=== PATIENT | male | born 1980 | race Caucasian/White ===

== ENCOUNTER 2021-01-17 23:43 | Emergency (ER) | payer BC, SELFPAY ==
[2021-01-17 23:55] VITALS: BP 140/93; PULSE 81; RESP 20; TEMP 36.6; O2SAT 97
[2021-01-18 00:07] VITALS: BP 133/96; PULSE 79; RESP 16; O2SAT 98
--- NOTE | 2021-01-18 01:05 | PC.NURSE ---
rhino rocket in place
--- NOTE | 2021-01-18 01:16 | ED.EPISTAXIS ---
HPI - Epistaxis General Chief complaint: Epistaxis Stated complaint: nosebleed hx of cauterization takes blood thinner Time Seen by Provider: 01/18/21 00:09 Source: RN notes reviewed History of Present Illness HPI Narrative: Patient presents emergency department from home for epistaxis. Patient states he has been having bleeding out of his left nare for the past 40 minutes states this is his third nosebleed today patient states that he is currently on Xarelto for history of congenital heart disease he denies any direct trauma or injury to the nose he denies any shortness of breath or any other symptoms Related Data Home Medications Medication Instructions Recorded Confirmed Xarelto 01/17/21 Allergies Allergy/AdvReac Type Severity Reaction Status Date / Time No Known Allergies Allergy Verified 01/18/21 00:16 Review of Systems Review of Systems: Gen.: Denies fevers or chills Eyes: Denies eye pain or visual change ENT: See HPI Respiratory: Denies shortness of breath or cough CV: Denies chest pain GI: Denies abdominal pain or emesis. Reports mild nausea Musculoskeletal: Denies back pain or muscle pain Neuro: Denies headache Skin: Denies rash Except as documented, all other systems reviewed and negative [facility] Past Medical History Medical History (Updated 01/18/21 @ 01:40 CDT by Kg Solis DO) Congenital heart disease Social History Social History (Updated 01/18/21 @ 01:17 CDT by Kg Solis DO) Smoking status: Never smoker Exam Narrative: APPEARANCE: No acute distress, nontoxic, resting in bed EYES: EOMI HEENT: Normocephalic, atraumatic, right nares normal appearance active bleeding on the left nare mild blood in posterior pharynx RESPIRATORY: No respiratory distress MUSCULOSKELETAl: Moves all extremities. NEURO: Awake and alert. Following commands, speech normal, no focal deficits SKIN:: Warm, dry. No rashes lesions or abrasions PSYCHIATRIC: Normal affect/mood, Course Course Emergency Course: Patient with no further bleeding with rapid Rhino placement Discussed with patient results of workup and diagnosis. Discussed need for follow-up with primary care, proper use of medication, and reasons to return to the emergency department. Patient understands and agrees to current treatment plan Vital Signs Vital signs: Vital Signs Temperature 97.8 F 01/17/21 23:55 Pulse Rate 81 01/17/21 23:55 Respiratory Rate 20 01/17/21 23:55 Blood Pressure 140/93 H 01/17/21 23:55 Pulse Oximetry 97 01/17/21 23:55 Temperature 97.8 F 01/17/21 23:55 Pulse Rate 79 01/18/21 00:07 Respiratory Rate 16 01/18/21 00:07 Blood Pressure 133/96 H 01/18/21 00:07 Pulse Oximetry 98 01/18/21 00:07 Procedures Epistaxis Control left: Nose Prepped With: phenylephrine Direct Inspection: yes Clots Removed by: blowing nose Cautery Used: none Device Inserted: nasal tampon Patient Tolerated Procedure: well Discharge Plan Discharge Instructions: Antibiotic Form, Nosebleed (ED) Additional Instructions: Return for further nose bleeding or any other symptoms of concern Prescriptions: New cephalexin 500 mg capsule 500 mg PO Q8H 7 Days Qty: 21 RF: 0 No Action Xarelto RF: 0 Follow-up/Referrals: Patrick Leach MD [Physician] - (Follow-up in 2 to 3 days for further ENT treatment and evaluation) PHYSICIAN,FOOD PHOTOGRAPHER [Primary Care Provider] - Time of Disposition: 01:41
[2021-01-18] MEDS: CEPHALEXIN 500 MG CAPSULE PO (01:55)
[2021-01-18 01:59] VITALS: BP 109/83; PULSE 86; RESP 16; O2SAT 97
== END 2021-01-18 01:00 | disposition home or self-care (01) ==
PROVIDERS: Emergency Provider Emergency Medicine
DX: R04.0 Epistaxis (principal); Q24.9 Congenital malformation of heart, unspecified; Z79.01 Long term (current) use of anticoagulants
CPT/HCPCS: 30901; 99283; A9270

== ENCOUNTER 2021-12-27 12:13 | Emergency (ER) | payer BC, SELFPAY ==
[2021-12-27 12:27] VITALS: BP 116/86; PULSE 140; RESP 18; TEMP 37.4; O2SAT 97
--- NOTE | 2021-12-27 12:45 | ECG_ITS ---
Measurements Intervals [place] Rate: 139 P: AL: 0 QRS: 168 QRSD: 146 T: -22 QT: 286 QTc: 436 Interpretive Statements ATRIAL FLUTTER/TACHYCARDIA WITH RAPID VENTRICULAR RESPONSE RIGHT AXIS DEVIATION RIGHT BUNDLE BRANCH BLOCK BASELINE ARTIFACT ABNORMAL ECG NO PREVIOUS ECG AVAILABLE FOR COMPARISON 6 Electronically Signed On 12-27-2021 15:53:08 CDT by Sukumar Starks M.D.
--- NOTE | 2021-12-27 14:55 | ED.GENADULT ---
HPI - General Adult General Chief complaint: Upper Respiratory Infection Stated complaint: flu lke symptoms History of Present Illness HPI narrative: Patient is a 41 y/o male who presents to express care via [facility]ov for an evaluation for flu-like symptoms that began yesterday. He reports feeling a scratchy throat yesterday. Additionally, he reports chills, cough, fever, and body aches. Hx pertinent for A-Fib with cardioversion in September 2021 and congenital heart defect with surgical repair. Denies taking otc meds for symptoms. Related Data Home Medications Medication Instructions Recorded Confirmed Bumex 12/27/21 Novolog Flexpen U-100 Insulin 12/27/21 atorvastatin 20 mg tablet 20 mg DAILY 12/27/21 12/27/21 blood-glucose sensor (Dexcom G6 12/27/21 12/27/21 Sensor device) blood-glucose transmitter (Dexcom 12/27/21 12/27/21 G6 Transmitter device) digoxin 125 mcg (0.125 mg) tablet 125 mcg DAILY 12/27/21 12/27/21 metoprolol succinate 25 mg 25 mg PO BID 12/27/21 12/27/21 tablet,extended release 24 hr pantoprazole 40 mg tablet,delayed 40 mg PO DAILY 12/27/21 12/27/21 release rivaroxaban 20 mg tablet (Xarelto) 20 mg DAILY 12/27/21 12/27/21 spironolactone 25 mg tablet 25 mg DAILY 12/27/21 12/27/21 Allergies Allergy/AdvReac Type Severity Reaction Status Date / Time No Known Allergies Allergy Verified 12/27/21 12:58 Review of Systems Review of Systems: Denies change in appetite, poor po intake, dizziness, LOC, skin color changes, abdominal pain, nausea, vomiting, diarrhea, sob, wheezing, edema, chest pain and heart palpitations. [facility] Past Medical History Medical History Congenital heart disease Social History Social History Smoking status: Never smoker Exam Narrative: GENERAL: Well-appearing, well-nourished, and in no acute distress. HEAD: Normocephalic, atraumatic. No sinus tenderness or facial swelling appreciated. EYES: PERRLA and EOMI. No evidence of erythema, swelling, or drainage. ENT: Bilateral external ears and ear canals normal. Bilateral TMs are normal.No TM perforation. Nares clear, no rhinorrhea or epistaxis. Bilateral turbinates without erythema/ swelling. Mucous membranes moist and pink. Uvula is midline without erythema and swelling. No evidence of petechial rash, cobblestoning, lesions, ulcers, erythema, swelling, exudates, peritonsillar abscess, tenting, or drooling. Breath odor and voice normal. NECK: Supple. No Lymphadenopathy or nuchal rigidity appreciated. CHEST: Bilateral lung gibbs are clear to auscultation. No respiratory distress. No evidence of cough or pleuritic cp upon examination. HEART: Irregular rhythm. Tachycardia with a rate of 140. No murmur, gallop, or rub heard. EXTREMITIES: Normal range of motion. No edema. SKIN: Warm with good skin turgor. Moderately diaphoretic NEURO: No focal deficits. Alert and oriented x3. Course Course Level of Care: Express Care Visit Vital Signs Vital signs: Vital Signs Temperature 99.4 F 12/27/21 12:27 Pulse Rate 140 H 12/27/21 12:27 Respiratory Rate 18 12/27/21 12:27 Blood Pressure 116/86 12/27/21 12:27 Pulse Oximetry 97 12/27/21 12:27 Oxygen Delivery Room Air 12/27/21 12:27 Temperature 99.4 F 12/27/21 12:27 Pulse Rate 140 H 12/27/21 12:27 Respiratory Rate 18 12/27/21 12:27 Blood Pressure 116/86 12/27/21 12:27 Pulse Oximetry 97 12/27/21 12:27 Oxygen Delivery Room Air 12/27/21 12:27 Reviewed Transfer Transfered to: [facility]: [facility] Transfer rationale: higher level of care -- cardio Accepting physician: FRANCA Hill Transfer comments: All questions answered. Patient stable at time of departure. Medical Decision Making Vital Signs Vital Signs: Vital Signs Temperature 99.4 F 12/27/21 12:27 Pulse Rate 140 H 12/27/21 12:27 Respirat
== END 2021-12-27 12:50 | disposition short-term general hospital (02) ==
PROVIDERS: Emergency Provider Nurse Practitioner Family; PCP Hospitalist
DX: I48.91 Unspecified atrial fibrillation (principal); Q24.9 Congenital malformation of heart, unspecified
CPT/HCPCS: 87804; 93005; 99215; G0463

== ENCOUNTER 2021-12-27 13:15 | Emergency (ER) | payer BC, SELFPAY ==
[2021-12-27] VITALS (14 sets, daily range): BP systolic 102–124; BP diastolic 74–98; PULSE 91–195; RESP 14–30; TEMP 36.3; O2SAT 93–100
--- NOTE | ~2021-12-27 | XR_ITS ---
EXAMINATION: XR chest 1V portable Exam Date/Time: 12/27/2021 14:40 CDT HISTORY: Tacky arrhythmia HX OF AFIB W/RECENT CARDIO AVERSION Comparison: None available. RESULT: Lines, tubes, and devices: Intact sternotomy wires. Valve replacement. Lungs and pleura: Clear. Cardiomediastinal silhouette: Cardiomegaly. Other: No acute osseous or upper abdominal finding. IMPRESSION: No acute cardiopulmonary process. Reviewed, dictated and finalized at location [facility].
--- NOTE | 2021-12-27 13:17 | ECG_ITS ---
Measurements Intervals [place] Rate: 135 P: 241 [place]: 67 QRS: 171 QRSD: 167 T: -35 QT: 333 QTc: 500 Interpretive Statements ATRIAL FLUTTER WITH RAPID VENTRICULAR RATE BASELINE ARTIFACT RIGHT AXIS DEVIATION RIGHT BUNDLE BRANCH BLOCK ABNORMAL ECG COMPARED TO ECG 12/27/2021 12:41:00 NO SIGNIFICANT CHANGES Electronically Signed On 12-27-2021 15:54:46 CDT by Sukumar Starks M.D.
--- NOTE | 2021-12-27 13:53 | ECG_ITS ---
Measurements Intervals [place] Rate: 104 P: 109 [place]: 257 QRS: 149 QRSD: 142 T: 37 QT: 330 QTc: 435 Interpretive Statements ATRIAL FLUTTER WITH RAPID VENTRICULAR RESPONSE BASELINE ARTIFACT RIGHT BUNDLE-BRANCH BLOCK ABNORMAL ECG COMPARED TO ECG 12/27/2021 13:22:04 NO SIGNIFICANT CHANGE Electronically Signed On 12-27-2021 16:02:36 CDT by Sukumar Starks M.D.
--- NOTE | 2021-12-27 13:54 | ED.ARRPALP ---
HPI - Arrhythmia/Palpitations General Chief Complaint: Arrhythmia/Palpitations Stated Complaint: Flutter with RVR, Sent from [facility] Time Seen by Provider: 12/27/21 13:40 Source: patient, family, EMS and RN notes reviewed Mode of arrival: EMS Limitations: no limitations History of Present Illness HPI narrative: 41 years old white male referred to our emergency room from urgent care by ambulance with RVR. Patient developed hoarseness of voice last night with chills low-grade fever, this morning got worse with diaphoresis, coughing and fever, patient received Tylenol 2 hours prior to arrival to the emergency room at the urgent care patient found to have A. fib with RVR. Patient is telling me that he had cardioversion at [facility] October 29, 2021, also telling me that he have for cardiac surgery because of congenital heart disease. Patient currently on Xarelto and beta-lydia. Related Data Home Medications Medication Instructions Recorded Confirmed Bumex 12/27/21 Novolog Flexpen U-100 Insulin 12/27/21 atorvastatin 20 mg tablet 20 mg DAILY 12/27/21 12/27/21 blood-glucose sensor (Dexcom G6 12/27/21 12/27/21 Sensor device) blood-glucose transmitter (Dexcom 12/27/21 12/27/21 G6 Transmitter device) digoxin 125 mcg (0.125 mg) tablet 125 mcg DAILY 12/27/21 12/27/21 metoprolol succinate 25 mg 25 mg PO BID 12/27/21 12/27/21 tablet,extended release 24 hr pantoprazole 40 mg tablet,delayed 40 mg PO DAILY 12/27/21 12/27/21 release rivaroxaban 20 mg tablet (Xarelto) 20 mg DAILY 12/27/21 12/27/21 spironolactone 25 mg tablet 25 mg DAILY 12/27/21 12/27/21 Allergies Allergy/AdvReac Type Severity Reaction Status Date / Time No Known Allergies Allergy Verified 12/27/21 12:58 Review of Systems Review of Systems: All systems reviewed & are unremarkable except as noted in HPI and below PMFSH Past Medical History Medical History Congenital heart disease Social History Social History Smoking status: Never smoker Exam Narrative: General appearance: Well-developed, well-nourished Skin: Normal color Head: Normocephalic, nontraumatic Eyes: Clear conjunctiva ENT: Oropharynx normal, ears normal, nose normal Neck: Supple, nontender Chest and respiratory: Airway patent, no respiratory distress, no accessory muscle use Heart: Regular rate/rhythm, tachycardia Abdomen: Soft, nontender, no organomegaly, quiet bowel sounds Vascular: Normal peripheral pulses, normal capillary refill. Musculoskeletal: Normal range of motion, nontender back Neurologic: Alert and oriented ?3, [employer]ITE [employer] is normal as tested, no gross motor deficit Course Course Emergency Course: Patient arrived with flulike symptoms, tachyarrhythmia, controlled with Lopressor IV, work-up showed patient have COVID, PaxiOVID is contraindicated with patient on heart arrhythmia medications, anticoagulant medications or blood thinner and antilipid medication. And patient is already have all of the above Currently patient feeling much better, denying any symptoms. And ready to go home. Consultations Consultation #1: DR TYSON, measurement superintendent at [facility], accepted patient transfer care, no bed available at this time. Waiting list Later patient arrhythmia controlled on Lopressor IV, and patient found to have COVID and the plan was to discharge patient home discussed with Dr. Tyson. Date: 12/27/21 Time: 14:51 Vital Signs Vital signs: Vital Signs Temperature 36.3 C L 12/27/21 13:25 Pulse Rate 139 H 12/27/21 13:25 Respiratory Rate 20 12/27/21 13:25 Blood Pressure 115
[2021-12-27] MEDS: SODIUM CHLORIDE 0.9% IV 1,000 ML 999 ML IV CONT (14:00)
[2021-12-27] MEDS: METOPROLOL TARTRATE INJ 5 MG/5 ML VIAL IV PUSH ×3 (14:40→14:52)
[2021-12-27 15:01] LABS: Influenza A QL RT-PCR Negative (Negative); Influenza B QL RT-PCR Negative (Negative); SARS-CoV-2 RNA PCR Positive
--- NOTE | 2021-12-27 15:03 | ECG_ITS ---
Measurements Intervals [place] Rate: 99 P: 75 [place]: 237 QRS: 168 QRSD: 197 T: -39 QT: 487 QTc: 628 Interpretive Statements ATRIAL FLUTTER WITH VARIABLE AV BLOCK BASELINE ARTIFACT RIGHT BUNDLE-BRANCH BLOCK ABNORMAL ECG COMPARED TO ECG 12/27/2021 14:15:59 NO SIGNIFICANT CHANGE Electronically Signed On 12-27-2021 16:03:55 CDT by Sukumar Starks M.D.
[2021-12-27 15:09] LABS: Basophils Absolute Auto 0.1 K/mm3 (0.0-0.1); Basophils Percent Auto 0.7 % (0.2-1.2); Eosinophils Absolute Auto 0.1 K/mm3 (0-0.3); Eosinophils Percent Auto 0.9 % (0-4.4); Hematocrit 41.3 % (42.0-52.0); Hemoglobin 13.9 g/dL (14.0-18.0); Immature Granulocyte Absolute 0.02 K/mm3 (0.00-0.031); Immature Granulocyte Percent A 0.3 % (0-0.5); Lymphocytes Absolute Auto 0.84 K/mm3 (0.9-3.2); Lymphocytes Percent Auto 12.4 % (18.3-44.2); Mean Corpuscular HGB Conc 33.7 g/dl (32-36); Mean Corpuscular Hemoglobin 31.7 pg (26-34); Mean Corpuscular Volume 94.3 fl (80-100); Mean Platelet Volume 12.1 fl (7.4-10.4); Monocytes Absolute Auto 0.4 K/mm3 (0.1-0.6); Monocytes Percent Auto 5.8 % (2.6-8.5); Neutrophils Absolute Auto 5.4 K/mm3 (1.3-6.7); Neutrophils Percent Auto 79.9 % (45.5-73.1); Platelet Count Result 192 k/mm3 (150-375); Red Blood Count 4.38 M/mm3 (4.6-6.20); Red Cell Distribution Width 15.3 % (11.5-14.5); White Blood Count 6.8 K/mm3 (4.5-10.0)
[2021-12-27 15:20] LABS: Alanine Aminotransferase 48 U/L (6-50); Albumin Level 4.7 g/dL (3.5-5.1); Alkaline Phosphatase 98 U/L (38-126); Anion Gap 12 mmol/L (8-16); Aspartate Amino Transferase 35 U/L (17-59); Bilirubin,Total 1.6 mg/dL (0.2-1.3); Blood Urea Nitrogen 17 mg/dL (9-20); Calcium 8.7 mg/dL (8.4-10.2); Carbon Dioxide 23 mmol/L (22-30); Chloride 102 mmol/L (98-107); Estimated CRCL calculation 87 ml/min; Estimated Glomerular Filt Rate > 60; Glucose 221 mg/dL (65-110); Potassium 3.9 mmol/L (3.4-5.0); Sodium 137 mmol/L (137-145)
[2021-12-27 15:22] LABS: INR 3.3; Partial Thromboplastin Time 43.8 SECONDS (22.3-36.8); Prothrombin Time 32.8 Seconds (11.1-14.7)
[2021-12-27 15:32] LABS: NT Pro B Type Natriuretic Pept 2790 pg/mL (5-100); Troponin I < 0.012 ng/mL (0.000-0.034)
--- NOTE | 2021-12-27 17:12 | PC.NURSE ---
1614 Call to [facility] to update Dr Cleary on covid status [facility]
== END 2021-12-27 16:50 | disposition home or self-care (01) ==
PROVIDERS: Emergency Provider Emergency Medicine; PCP Hospitalist
DX: U07.1 COVID-19 (principal); E11.9 Type 2 diabetes mellitus without complications; Z96.41 Presence of insulin pump (external) (internal); Z87.74 Personal history of (corrected) congenital malformations of heart and circulatory system; Z79.01 Long term (current) use of anticoagulants; Z79.4 Long term (current) use of insulin; I48.92 Unspecified atrial flutter; I45.10 Unspecified right bundle-branch block
CPT/HCPCS: 36415; 71045; 80053; 83880; 84484; 85025; 85610; 85730; 87502; 93005; 96361; 96374; 99284; C9803; J0153; J7030; U0003; U0005

== ENCOUNTER → 2024-07-02 11:33 | Outpatient (REF) | payer OTHER, SELFPAY ==
--- OUTSIDE RECORDS SUMMARY | 2024-07-02 13:20 | XMS_ITS | Referral Summary ---
Author Organization [facility] Address [address] [place] [address] Care Team Providers Care Cooking Show Host Name Role Phone Roxanne Meza MD, Cam Ballard Unavailable [phone] More Mars MD Unavailable Phoenix Colon MD Primary Care Provider [phone] Encounters Date Type Department Care Team Description 06/21/2024 Telephone [facility] 2nd [place] [address] [place] [address] Tammi Neville 06/20/2024 11:12 AM CDT - 06/20/2024 11:59 PM CDT Hospital Encounter [facility] [place] [id number] Chronic congestive heart failure with right ventricular diastolic dysfunction (HCC); Status post pulmonary valve replacement with bioprosthetic valve; Chronic systolic dysfunction of right ventricle; Nonrheumatic pulmonary valve insufficiency Discharge Disposition: Discharge to home or self care 06/20/2024 10:30 AM CDT - 06/20/2024 11:59 PM CDT Hospital Encounter [facility] Heart Station [address] [place] [id number] Chronic congestive heart failure with right ventricular diastolic dysfunction (HCC); Pulmonary atresia with intact ventricular septum; Prosthetic pulmonary valve insufficiency; Atrial fibrillation and flutter (HCC); Status post pulmonary valve replacement with bioprosthetic valve; Elevated right ventricular end-diastolic pressure Discharge Disposition: Discharge to home or self care 06/20/2024 2:00 PM CDT Office Visit [facility] 2nd [place] [address] [place] [address] More Mars MD 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); Atrial fibrillation and flutter (HCC); Status post pulmonary valve replacement with bioprosthetic valve; Prosthetic pulmonary valve insufficiency; Elevated right ventricular end-diastolic pressure; Chronic congestive heart failure with right ventricular diastolic dysfunction (HCC); Chronic systolic dysfunction of right ventricle 06/04/2024 Results Follow-Up [facility] at [address] [place] [id number] Carol Quiñones NP 05/31/2024 9:30 AM CDT Office Visit [facility] at [address] [place] [address] Tl Cruz DO Type 2 diabetes mellitus with hypoglycemia without coma, with long-term current use of insulin (HCC) 05/29/2024 Telephone [facility] [address] [place] [address] Phoenix Colon MD Medical Question/Miscellaneous 05/29/2024 9:30 AM CDT Office Visit [facility] at [address] [place] [address] Carol Quiñones NP Type 2 diabetes mellitus with hypoglycemia without coma, with long-term current use of insulin (HCC) (Primary Dx); Status post pulmonary valve replacement with bioprosthetic valve; Chronic systolic dysfunction of right ventricle; Low cardiac output syndrome (HCC); Chronic anticoagulation on Xarelto; Encounter for hepatitis C screening test for low risk patient; FAYE (obstructive sleep apnea); Atrial fibrillation and flutter (HCC); Need for hepatitis B screening test; Chronic congestive heart failure with right ventricular diastolic dysfunction (HCC); Lipoma of head; Screening for thyroid disorder; Screening for hyperlipidemia 04/13/2024 9:45 AM CARD CHECKER Telemedicine [facility] Virtual Care [address] [place] [address] Sabiha Denis NP Abscess (Primary Dx) 04/13/2024 Patient Self-Triage [facility] [address] [place] [address] Mychart, Generic Provider from Last 3 Months Allergies No known active allergies Medications glucagon (glucagon) 1 mg kit Use as directed for low blood sugar. 1 kit 11 Active blood-glucose meter (OneTouch Verio Meter) [facility] 1 each 4 (four) times a day 1 each 1 Active blood glucose diagnostic (OneTouch Verio test strips) strip 200 each by other route as directed Use to measure blood glucose 4 times daily 200 each 11 Active multivitamin capsule Take 1 capsule by mouth daily Active insulin detemir (LEVEMIR) 100 unit/mL (3 mL) pen for injectionIndicatio ns:Type 2 diabetes mellitus with hypoglycemia without coma, with long-term current use of insulin ([facility]),Type 2 diabetes mellitus without complication, without long-term current use of insulin ([facility]) Inject 20 Units under the skin daily 18 mL 3 023 Active Additional Information Patient not taking.Reported on 05/29/2024 pen needle, diabetic (BD Ultra-Fine Jeannine Pen Needle) 32 gauge x 5/32 needleIndications: Type 2 diabetes mellitus with hypoglycemia without coma, with long-term current use of insulin (HCC),Type 2 diabetes mellitus without complication, without long-term current use of insulin (HCC) Use for insulin pens 369 each 3 023 Active T:Slim X2 Control-IQ [facility] USE DIRECTED 1 each 024 Active insulin lispro (HumaLOG) 100 unit/mL vial for injectionIndicatio ns:Type 2 diabetes mellitus with hypoglycemia without coma, with long-term current use of insulin (HCC) Use with insulin pump, TDD 50 units 50 mL 3 024 Active amoxicillin (AMOXIL) 500 mg tablet/capsuleIndi cations:Prophylaxi s, Medical,take 30 minutes prior to dental cleaning/procedure s Take 4 tablet/capsule (2000 mg) by mouth once 30 minutes prior to dental cleaning or procedure 1 tablet/cap blake 1 024 Active Additional Information Patient not taking.Reported on 06/20/2024 Xarelto 20 mg tablet TAKE 1 TABLET DAILY WITH DINNER 90 tablet 3 024 Active sotaloL (BETAPACE) 120 mg tablet TAKE 1 TABLET TWICE A DAY 180 tablet 1 024 Active atorvastatin (LIPITOR) 20 mg tabletIndications: Dyslipidemia TAKE 1 TABLET DAILY 90 tablet 3 024 Active spironolactone (ALDACTONE) 25 mg tabletIndications: Pulmonary atresia with intact ventricular septum TAKE 1 TABLET DAILY 90 tablet 3 024 Active blood-glucose transmitter (Dexcom G6 Transmitter) deviceIndications: Type 2 diabetes mellitus with hypoglycemia without coma, with long-term current use of insulin ([facility]) Use as directed to check blood glucose; change every 90 days 1 each 1 024 Active benzonatate (TESSALON) 100 mg capsuleIndications :Cough Take 1 capsule (100 mg total) by mouth 3 (three) times a day as needed for cough 42 capsule 025 Active Dexcom G7 Sensor device 1 Device continuously Change every 10 days. 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 ventricular diastolic dysfunction (HCC),Chronic systolic dysfunction of right ventricle,Atrial fibrillation and flutter (HCC),Chronic anticoagulation TAKE 1 TABLET DAILY 90 tablet 3 025 Active empagliflozin (JARDIANCE) 10 mg tabletIndications: Pulmonary atresia with intact ventricular septum,Status post pulmonary valve replacement with bioprosthetic valve,Nonrheumatic pulmonary valve insufficiency,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 ventricular 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 dysfunction (HCC),Chronic systolic dysfunction of right ventricle,Atrial fibrillation and flutter (HCC),Chronic anticoagulation Take 1 tablet (10 mg total) by mouth daily 90 tablet 3 024 2024 Discontinued lisinopriL (PRINIVIL,ZESTRIL) 5 mg tabletIndications: Chronic congestive heart failure with right ventricular diastolic dysfunction (HCC),Chronic systolic dysfunction of right ventricle Take 0.5 tablets (2.5 mg total) by mouth daily 30 tablet 6 024 2024 Discontinued Active Problems Problem Noted Date Diagnosed Date Lipoma of head 05/29/2024 Assessment & Plan (05/29/2024 10:27 AM CDT): Referring to general surgery at [facility] for excision. 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 Continue current medication. Acute idiopathic gout of multiple sites 04/28/19 Assessment & Plan (04/28/2023 4:49 PM CARD CHECKER): Stable, well controlled; patient reports occasional flares; good relief with colchicine; continue colchicine 0.2 mg for 1 day followed with 0.6 mg Episodic lightheadedness 10/29/2022 Assessment & Plan (10/29/2022 2:18 PM CDT): Episodic lightheadedness possibly related to hypotension, low blood sugar or arrhythmia. Encouraged hydration and regular meals/snacks. Check blood sugar and BP if he has another episode of lightheadedness. Discussed MCT if he has further episodes in setting of normal blood sugar and normotensive FAYE (obstructive sleep apnea) 03/24/2022 Assessment & Plan (04/28/2023 4:49 PM CARD CHECKER): Stable, well controlled; patient was not able to start CPAP; patient reports improved sleep quality; less daytime sleepiness; will continue to monitor Mood disorder 10/27/2021 Assessment & Plan (04/28/2023 4:49 PM CARD CHECKER): Stable well controlled; no major issues; patient reports decreased stress job which is helping Continue to monitor closely Assessment & Plan (09/28/2022 1:29 PM CDT): Stable, well controlled; patient reports no major mood issues at this time Assessment & Plan (11/22/2021 8:49 PM CDT): Continues to have symptoms; follow-up with sleep medicine; if no improvement, consider evaluation for traumatic brain injury given symptoms started after complicated surgery Assessment & Plan (10/27/2021 4:57 PM CDT): Patient reports he has had withdrawal depression durations since February 2019; patient reports forgetfulness and mood changes Patient reports in similar time he had cardiac catheterization which was converted to open heart surgery Patient also reports son was born, patient may also have FAYE Will have patient evaluated for sleep apnea; if sleep apnea is not present, may consider possible TBI secondary to complicated surgery, and discuss treatment options Elevated right ventricular end-diastolic pressur e 08/06/2021 Atrial fibrillation and flutter 08/05/2021 Overview (04/28/2023): Mr. Sloan is a 41 y.o. 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 He had symptomatic atrial fibrillation following PVR in 2018. Since then he has been arrhythmia free until 09/2021 when he had asymptomatic atrial flutter which was cardioverted and reverted to sinus rhythm. He had COVID in 12/2021 and he was diagnosed with atrial flutter afterwards. >>OVERVIEW FOR ATRIAL FLUTTER (CMS/HCC) (HCC) WRITTEN ON 10/19/2021 10:37 AM BY TIM VALENTE Added automatically from request for surgery [id number] Assessment & Plan (05/29/2024 10:27 AM CDT): Normal sinus rhythm today in office, continue sotalol prescribed by Dr. Carey. Uses Xarelto for anticoagulation. Assessment & Plan (05/19/2023 9:22 AM CARD CHECKER): He is doing well on sotalol with limited AF recurrence in setting of COVID QT interval stable, QTc 487 ms Continue sotalol 120 mg BID BMP today Continue Xarelto for stroke risk reduction Assessment & Plan (04/28/2023 12:43 PM CARD CHECKER): >>ASSESSMENT AND PLAN FOR ATRIAL FLUTTER (CMS/HCC) ([facility]) WRITTEN ON 11/22/2021 8:47 PM BY PHOENIX COLON MD Stable, s/p cardioversion, currently in NSR Assessment & Plan (04/28/2023 12:43 PM CARD CHECKER): >>ASSESSMENT AND PLAN FOR ATRIAL FIBRILLATION (CMS/HCC) ([facility]) WRITTEN ON 10/27/2021 4:56 PM BY PHOENIX COLON MD EKG performed today; rate of 100, irregularly irregular, atrial fibrillation flutter Possible right bundle-branch block and right axis deviation QRS complex near Assessment & Plan (04/28/2023 12:43 PM CARD CHECKER): >>ASSESSMENT AND PLAN FOR ATRIAL FIBRILLATION (CMS/HCC) ([facility]) WRITTEN ON 09/28/2022 1:29 PM BY PHOENIX COLON MD Stable, and regular rate and rhythm today; continue sotalol 120 mg b.i.d.; Xarelto 20 mg daily Assessment & Plan (04/28/2023 12:43 PM CARD CHECKER): >>ASSESSMENT AND PLAN FOR ATRIAL FIBRILLATION (CMS/HCC) ([facility]) WRITTEN ON 10/29/2022 2:19 PM BY RENE SARABIA, JACKSON He is doing well on sotalol without recurrence of atrial fibrillation or flutter QT interval stable Continue sotalol 120 mg BID BMP prior to next visit Continue Xarelto for stroke risk reduction Assessment & Plan (09/20/2022 11:28 AM CDT): 41 yo make with h/o AFib/AFlutter with several cardioversions and failed current oral medications. HR currently 80s-90s - Home meds: Metoprolol XL 100mg, Digoxin 125mcgs - Started sotalol 09/17 PM, EP following. Discussed w/ EP w/ plans to increase sotalol to 120 mg BID starting PM 09/18. D/c metoprolol Back from elective cardioversion now in NSR Plan to give one more dose of sotalol then EKG and discharge home . 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 Patient follows with specialists, Dr. Carey and Dr. Mars. Assessment & Plan (09/19/2022 8:30 AM CDT): Pulm atresia/ intact septum s/p repair. S/p biprosthetic valve. EF 42%, mod dilatation of RV, mod/sevre dilatation of RA. Appears euvolemic - continue home bumex 1 daily, dig 125 mcg daily, aldactone 25 daily, discontinued home metoprolol XL Assessment & Plan (09/17/2022 6:13 PM CDT): Previous ECHO show LVEF 44% Cont GDMT Status post pulmonary valve replacement with bioprosthetic valve 01/20/2021 Assessment & Plan (05/29/2024 10:26 AM CDT): Patient is managed with Xarelto. He has congenital heart disease, which is why he had to have his pulmonary valve replaced. Type 2 diabetes mellitus wit h hypoglycemia, with long-term current use of insulin 09/18/2020 Assessment & Plan (05/29/2024 10:26 AM CDT): Patient has been managed by Dr. Oliveira, endocrinology, but he retired. Referring to Dr. Cruz, endocrinology in our office. Patient has an insulin pump and uses the Dexcom device as well. A1c today is 10.9, which is not at goal. He reports diet could do some work. Continue Lipitor 20 mg daily due to diabetes and cholesterol. Continue Jardiance 10 mg daily, as well as insulins. Patient uses lisinopril 2.5 mg daily to protect the kidneys because of diabetes. Assessment & Plan (04/28/2023 4:48 PM CARD CHECKER): Not well controlled; last A1c elevated at 13.5; patient regards elevated levels as wake up call; has been working on lowering A1c; doing better with new pump; using more insulin; has continuous glucose monitoring which helps management; patient reports occasionally forgets to replace pump which causes elevated blood sugars Patient and family are working on changing diet, meal prepping; ensuring foods that are appropriate for everyone Continue insulin pump as managed by Endocrinology Assessment & Plan (09/28/2022 1:28 PM CDT): Not well controlled, last A1c increased to 11.1; patient reports most of increase has been due to poor diet; patient also has difficulty with bolusing pump at appropriate times Encouraged patient continue to work on dietary changes, returning to low- carbohydrate diet; making healthy dietary choices when away from home Encourage 30 minutes moderate intensity exercise 5 days per week Continue to follow with Endocrinology for management of insulin pump Assessment & Plan (09/20/2022 11:26 AM CDT): Pt has insulin pump and own equipment to self monitor. Endocrine following - plan to discharge with novalog insulin vials Will need endocrine education at discharge Assessment & Plan (09/17/2022 6:10 PM CDT): Pt has insulin pump and own equipment to self monitor Assessment & Plan (11/22/2021 8:48 PM CDT): Stable, not well controlled; improving -last a1c elevated -patient reports recent poor diet but know dietary changes to make -has increased activity at home and work -continue with low carbohydrate diet; Assessment & Plan (10/27/2021 4:56 PM CDT): Patient follows with endocrinology; patient is on insulin pump in continues glucose monitoring Last A1c was 7.9; patient reports he is working on improved control blood sugars Chronic anticoagulation on Xarelto 03/20/2019 Assessment & Plan (05/29/2024 10:26 AM CDT): Stable with no concerns. Low cardiac output syndrome 02/24/2019 Assessment & Plan (05/29/2024 10:27 AM CDT): Symptoms stable, as patient feels well overall. Assessment & Plan (09/28/2022 1:29 PM CDT): Most recent echo demonstrated LVEF of 42%; no significant peripheral edema Continue Bumex 1 mg daily, spironolactone 25 mg daily Assessment & Plan (11/22/2021 8:47 PM CDT): Stable, historic diagnosis; prior to valvae replacement -ECHO reviewed demonstrating enlarged right atrium with RV hypokinesis; replacement pulmonary valve -likely resolved, continue to monitor; referral to cardiology for management and surveillance Adult congenital heart disease 02/22/2019 Resolved Problems Problem Noted Date Diagnosed Date Resolved Date Abscess 04/13/2024 05/29/2024 Assessment & Plan (04/13/2024 10:15 AM CARD CHECKER): Acute nodule in nostril with some surrounding swelling. Will send bactrim to treat. If symptoms worsen or do not improve recommend in person evaluation. Patient verbalized understanding and agreed to plan of care at this time. 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 No 09/28/2022 Within the last year, have y ou been humiliated or emotionally abused in other ways by your partner or ex-partner? No Within the last year, have y ou been kicked, hit, slapped, or otherwise physically hurt by your partner or ex-partner? No 09/28/2022 Within the last year, have y ou been raped or forced to have any kind of sexual activity by your partner or ex-partner? No 09/28/2022 Social Connection and Isolat ion Panel [NHANES] Answer Date Recorded In a typical week, how many times do you talk on the phone with family, friends, or neighbors? More than three times a week 09/28/2022 How often do you get togethe r with friends or relatives? More than three times a week 09/28/2022 How often do you attend chur ch or yazdanism services? Never 09/28/2022 Do you belong to any clubs o r organizations such as anabaptist groups, unions, fraternal or athletic groups, or school groups? No 09/28/2022 How often do you attend meet ings of the clubs or organizations you belong to? Never 09/28/2022 Are you , , di vorced, , never , or living with a partner? 09/28/2022 AUDIT-C Answer Date Recorded Q1: How often do you have a drink containing alc ohol? 2-4 times a month 05/29/2024 Q2: How many drinks containi ng alcohol do you have on a typical day when you are drinking? 1 or 2 05/29/2024 Q3: How often do you have si x or more drinks on one occasion? Never 05/29/2024 Overall Financial Resource Strain (CARDIA) Answe r Date Recorded How hard is it for you to pa y for the very basics like food, housing, medical care, and heating? Not hard at all 09/28/2022 PHQ-2 Answer Date Recorded PHQ-2 Total Score (If total score is 3 or more points, staff should administer the PHQ-9) 0 05/29/2024 [facility] Occupational Stress Questionnaire Answer Date Recorded Do you feel stress - tense, restless, nervous, or anxious, or unable to sleep at night because your mind is troubled all the time - these days? To some extent 09/28/2022 Exercise Vital Sign Answer Date Recorde d On average, how many days pe r week do you engage in moderate to strenuous exercise (like a brisk walk)? 5 days 09/28/2022 On average, how many minutes do you engage in exercise at this level? 60 min 09/28/2022 Hunger Vital Sign Answer Date Recorded Within the past 12 months, y ou worried that your food would run out before you got the money to buy more. Never true 09/29/19 23 Within the past 12 months, t he food you bought just didn't last and you didn't have money to get more. Never true 09/28/2022 PRAPARE - Transportation Answer Date Re corded In the past 12 months, has l ack of transportation kept you from medical appointments or from getting medications? No 09/11 In the past 12 months, has l ack of transportation kept you from meetings, work, or from getting things needed for daily living? No 09/28/2022 Housing Stability Vital Sign Answer Laz e Recorded In the last 12 months, was t here a time when you were not able to pay the mortgage or rent on time? No 09/28/2022 In the last 12 months, how many places have you lived? 1 09/28/2022 In the last 12 months, was t here a time when you did not have a steady place to sleep or slept in a senior care (including now)? No 09/28/2022 PHQ-9 Answer Date Recorded PHQ-9 Total Score 1 05/29/2024 Personal Safety Answer Date Recorded Have you ever been in or are you currently in a harmful physical or emotional relationship or is someone making you feel afraid or unsafe? Denies 09/17/2022 Sex and Gender Information Value Date Recorded Sex Assigned at Not on file Legal Sex Male 2:38 PM CDT Gender Identity Male 01/14/2021 7:17 PM CDT Sexual Orientation Straight 01/14/2021 7: 17 PM CDT Last Filed Vital Signs Vital Sign Reading Time Taken Comments Blood Pressure 110/76 06/20/2024 1:59 PM CDT Pulse 80 06/20/2024 1:59 PM CDT Temperature 36.7 C (98.1 F) 09/08/2023 3:32 PM CDT Respiratory Rate 20 06/20/2024 1:59 PM CDT Oxygen Saturation 94% 06/20/2024 1:59 PM CDT Inhaled Oxygen Concentration - - Weight 75.8 kg (167 lb 1.7 oz) 06/20/2024 1:59 P M CDT Height 165.5 cm (5' 5.15 ) 06/20/2024 1:59 PM CD T Body Mass Index 27.68 06/20/2024 1:59 PM CDT Plan of Treatment Not on file Procedures Procedure Name Priority Date/Time Associated Diagnosis Comments ECG 12-LEAD Routine 06/20/2024 2:19 PM CDT Pulmonary atresia with intact ventricular septum Atrial fibrillation and flutter (HCC) Status post pulmonary valve replacement with bioprosthetic valve Prosthetic pulmonary valve insufficiency Elevated right ventricular end-diastolic pressure MRI CARDIAC M&FUNC W WO CONTRAST Schedule Routine, Read Routine (OP Routine) 06/20/2024 1:25 PM CDT Chronic congestive heart failure with right ventricular diastolic dysfunction (HCC) Status post pulmonary valve replacement with bioprosthetic valve Chronic systolic dysfunction of right ventricle Nonrheumatic pulmonary valve insufficiency EXERCISE VO2 STUDY Routine 06/20/2024 11:09 AM CDT Chronic congestive heart failure with right ventricular diastolic dysfunction (HCC) 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 Atrial fibrillation and flutter (HCC) T4, FREE Routine 06/01/2024 8:58 AM CDT CBC WITHOUT DIFFERENTIAL Routine 06/01/2024 8:58 AM CDT Type 2 diabetes mellitus with hypoglycemia without coma, with long-term current use of insulin (HCC) Atrial fibrillation and flutter (HCC) COMPREHENSIVE METABOLIC PANEL Routine 06/01/2024 8:58 AM CDT Type 2 diabetes mellitus with hypoglycemia without coma, with long-term current use of insulin (HCC) Atrial fibrillation and flutter (HCC) LIPID PANEL Routine 06/01/2024 8:58 AM CDT Type 2 diabetes mellitus with hypoglycemia without coma, with long-term current use of insulin (HCC) Screening for hyperlipidemia THYROID FUNCTION CASCADE Routine 06/01/2024 8:58 AM CDT Screening for thyroid disorder ALBUMIN CREATININE RATIO, URINE Routine 06/01/2024 8:58 AM CDT Type 2 diabetes mellitus with hypoglycemia without coma, with long-term current use of insulin (HCC) HEPATITIS B SURFACE ANTIBODY (IMMUNE STATUS) Routine 06/01/2024 8:58 AM CDT Need for hepatitis B screening test HEPATITIS B CORE ANTIBODY, TOTAL Routine 06/01/2024 8:58 AM CDT Need for hepatitis B screening test HEPATITIS B SURFACE ANTIGEN Routine 06/01/2024 8:58 AM CDT Need for hepatitis B screening test HEPATITIS C ANTIBODY Routine 06/01/2024 8:58 AM CDT Encounter for hepatitis C screening test for low risk patient POCT HEMOGLOBIN A1C Routine 05/29/2024 9 :45 AM CDT Type 2 diabetes mellitus with hypoglycemia without coma, with long-term current use of insulin (HCC) DIABETES EYE EXAM Routine 03/26/2024 from Last 3 Months or Most Recently Relevant to Health Maintenance Results * ECG 12 lead (06/20/2024 2:19 PM CDT) Ventricular Rate EKG/Min 65 BPM [facility] Atrial Rate 65 BPM [facility] [place]-Interval (MSEC) 220 ms [facility] QRS-Interval (MSEC) 146 ms [facility] QT-Interval (MSEC) 520 ms [facility] QTc 540 ms [facility] P [place] 53 degrees [facility] R [place] 142 degrees [facility] T [place] 94 degrees [facility] Diagnosis Sinus rhythm with 1st degree A-V block Right atrial enlargement Right bundle branch block Right axis deviation T wave inversions in precordial and lateral leads Abnormal ECG When compared with ECG of 14-SEP-2023 14:08, Precordial T wave inversions are new Confirmed by More Mars ([id number]) on 06/20/2024 10:43:06 PM [facility] 06/20/2024 2:11 PM CDT 06/20/2024 10:43 PM CDT us More Mars MD ECG ORDERABLES Final Result [facility] * MRI Cardiac M&F W WO Contrast (06/20/2024 1:25 PM CDT) Anatomical Region Laterality Modality Body N/A Magnetic Resonan ce 06/22/2024 12:1 3 PM CDT Impressions 06/25/2024 12:01 PM CDT 1. 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 An additional focus of metal susceptibility artifact in the basal septum along the insertion of the septal leaflet of the tricuspid valve is indeterminate and may represent tricuspid valve repair. 2. Moderate-severe pulmonic regurgitation (regurgitant fraction = 46%). 3. Small right ventricular chamber size (RVEDVi = 57 mL/m2) with mildly reduced systolic function (RVEF = 46%). 4. Small left ventricular chamber size (LVEDVi = 41 mL/m2) with normal systolic function (LVEF = 61%). 5. Qualitatively mild mitral regurgitation. By indirect calculation, the regurgitant fraction is 23%. 6. Stable markedly dilated right atrium and inferior vena cava. 7. Mild patchy late gadolinium enhancement throughout much of the left ventricular myocardium, compatible with patchy myocardial fibrosis. This appears grossly similar to the prior exam on 11/08/2018, although direct comparison is difficult due to differences in technique. 8. Stable mild dilatation of the ascending aorta measuring 43 mm. Dictated by: Berry Dolan MD, PHD The radiology attending physician has personally reviewed this study, and had reviewed and/or edited this written report and agrees with it. Electronically signed by: Alfredo Miles M.D. Narrative 06/25/2024 12:01 PM CDT EXAMINATIONS: 1. MRI CARDIAC M/T/FUNC W WO CONTRAST HISTORY: 43-year-old with pulmonary atresia with intact ventricular septum status post pulmonic valve anatomy and subsequent surgical pulmonic valve in 2019. Now with severe pulmonic regurgitation. TECHNIQUE: Multiplanar MR imaging of the heart was performed before and after the uneventful administration of intravenous contrast according to a custom monitored protocol. The images were post-processed by the technologist to create MIP and 3D images, which were used in interpretation. Contrast: Multihance 15 mL COMPARISON: Outside MR 11/08/2018 FINDINGS: Susceptibility artifact in region of the right ventricular outflow tract in keeping with surgical pulmonic valve replacement. There is additional focus of susceptibility artifact in the basilar septum near the septal leaflet of the tricuspid valve, which is indeterminate and may represent a component of tricuspid valve repair. Levocardia with conventional cardiac segmental anatomy {S, D, S}. Systemic flow returns to the right atrium via the single right-sided superior vena cava and the inferior vena cava. Pulmonary flow returns to the left atrium via four pulmonary veins, two on the left and two on the right. No anomalous pulmonary venous return. The right atrium and inferior vena cava are markedly dilated but not significantly changed from 2019. The left atrium is normal in caliber. No atrial septal defect is seen. There is atrioventricular concordance. There is qualitatively mild mitral regurgitation. The tricuspid valve has qualitatively normal function. The ventricles are qualitatively normal to small in size. Qualitatively normal left ventricular systolic function and borderline low to mildly reduced right ventricular systolic function. No ventricular septal defect. No focal wall motion abnormality. There is ventriculoarterial concordance. Pulmonic valve is obscured by metal susceptibility artifact however at least moderate pulmonic regurgitation is present. There is unobstructed flow through the main and branch pulmonary arteries, which are of normal caliber. No peripheral pulmonic branch stenosis is seen. The aortic valve qualitatively has normal function. There is unobstructed flow through the ascending aorta and aortic arch, which is left-sided and has a three-vessel branching pattern. The ascending aorta is mildly dilated measuring 43 mm, unchanged from the prior exam. No evidence of coarctation. There is unobstructed flow through the descending thoracic aorta, which is of normal caliber. No cardiac mass or thrombus. No pericardial effusion. No major aortopulmonary collateral artery or venovenous collateral is seen. Late gadolinium enhancement: There is patchy incomplete nulling of the myocardial signal intensity on the late gadolinium enhancement inversion recovery sequences throughout much of the left ventricular myocardium (for example series 58), which is compatible with mild patchy fibrosis. Recommend comparison with the prior imaging obtained on 10/31/2018 is difficult due to differences in technique, however the extent of fibrosis appears grossly similar. The T1 mapping sequence obtained on the prior exam also demonstrated patchy T1 prolongation compatible with fibrosis. Quantitative data: Height: 168 cm Weight: 75.7 kg BSA: 1.88 m2 Ventricular function: Heart rate: 66 bpm Left ventricle: Ejection fraction: 61% End diastolic volume: 77 mL (41 mL/m2, indexed) End systolic volume: 30 mL (16 mL/m2, indexed) Stroke volume: 47 mL (25 mL/m2, indexed) Cardiac output: 3.1 L/min Cardiac index: 1.6 L/min/m2 Right ventricle: Ejection fraction: 46% End diastolic volume: 108 mL (57 mL/m2, indexed) End systolic volume: 58 mL (31 mL/m2, indexed) Stroke volume: 50 mL (26 mL/m2, indexed) Cardiac output: 3.3 L/min Cardiac index: 1.8 L/min/m2 Flow quantification: Aorta above valve: Heart rate: 65 bpm Peak velocity: 0.9 m/sec Peak pressure gradient: 3 mmHg Fwd flow: 36 mL, 2.3 L/min Rev flow: 4 mL, 0.2 L/min Net flow: 32 mL, 2.1 L/min Regurgitant fraction: 10% Pulmonary artery above valve: Heart rate: 66 bpm Peak velocity: 1.0 m/sec Peak pressure gradient: 4 mmHg Fwd flow: 48 mL, 3.1 L/min Rev flow: 22 mL, 1.4 L/min Net flow: 26 mL, 1.7 L/min Regurgitant fraction: 46% Net flows per heartbeat: Right pulmonary artery (actual): 21 mL , 1.4 L/min Left pulmonary artery (actual): 16 mL , 1.0 L/min Total pulmonary artery (calculated): 37 mL , 2.4 L/min Functional analysis: Internal validation calculation: * Systemic stroke volume (47 mL) - Asc Ao fwd flow (36 mL) = 11 mL * Indirect mitral regurgitant fraction = 11 mL / LV stroke volume (47 mL) = 23% RPA:LPA flow = 21 mL : 16 mL = 57% vs 43% Dr. Marquis Perry also participated in the acquisition, post-processing, and interpretation of this exam. Procedure Note Alfredo Miles MD - 06/25/2024 EXAMINATIONS: 1. MRI CARDIAC M/T/FUNC W WO CONTRAST HISTORY: 43-year-old with pulmonary atresia with intact ventricular septum status post pulmonic valve anatomy and subsequent surgical pulmonic valve in 2019. Now with severe pulmonic regurgitation. TECHNIQUE: Multiplanar MR imaging of the heart was performed before and after the uneventful administration of intravenous contrast according to a custom monitored protocol. The images were post-processed by the technologist to create MIP and 3D images, which were used in interpretation. Contrast: Multihance 15 mL COMPARISON: Outside MR 11/08/2018 FINDINGS: Susceptibility artifact in region of the right ventricular outflow tract in keeping with surgical pulmonic valve replacement. There is additional focus of susceptibility artifact in the basilar septum near the septal leaflet of the tricuspid valve, which is indeterminate and may represent a component of tricuspid valve repair. Levocardia with conventional cardiac segmental anatomy {S, D, S}. Systemic flow returns to the right atrium via the single right-sided superior vena cava and the inferior vena cava. Pulmonary flow returns to the left atrium via four pulmonary veins, two on the left and two on the right. No anomalous pulmonary venous return. The right atrium and inferior vena cava are markedly dilated but not significantly changed from 2019. The left atrium is normal in caliber. No atrial septal defect is seen. There is atrioventricular concordance. There is qualitatively mild mitral regurgitation. The tricuspid valve has qualitatively normal function. The ventricles are qualitatively normal to small in size. Qualitatively normal left ventricular systolic function and borderline low to mildly reduced right ventricular systolic function. No ventricular septal defect. No focal wall motion abnormality. There is ventriculoarterial concordance. Pulmonic valve is obscured by metal susceptibility artifact however at least moderate pulmonic regurgitation is present. There is unobstructed flow through the main and branch pulmonary arteries, which are of normal caliber. No peripheral pulmonic branch stenosis is seen. The aortic valve qualitatively has normal function. There is unobstructed flow through the ascending aorta and aortic arch, which is left-sided and has a three-vessel branching pattern. The ascending aorta is mildly dilated measuring 43 mm, unchanged from the prior exam. No evidence of coarctation. There is unobstructed flow through the descending thoracic aorta, which is of normal caliber. No cardiac mass or thrombus. No pericardial effusion. No major aortopulmonary collateral artery or venovenous collateral is seen. Late gadolinium enhancement: There is patchy incomplete nulling of the myocardial signal intensity on the late gadolinium enhancement inversion recovery sequences throughout much of the left ventricular myocardium (for example series 58), which is compatible with mild patchy fibrosis. Recommend comparison with the prior imaging obtained on 10/31/2018 is difficult due to differences in technique, however the extent of fibrosis appears grossly similar. The T1 mapping sequence obtained on the prior exam also demonstrated patchy T1 prolongation compatible with fibrosis. Quantitative data: Height: 168 cm Weight: 75.7 kg BSA: 1.88 m2 Ventricular function: Heart rate: 66 bpm Left ventricle: Ejection fraction: 61% End diastolic volume: 77 mL (41 mL/m2, indexed) End systolic volume: 30 mL (16 mL/m2, indexed) Stroke volume: 47 mL (25 mL/m2, indexed) Cardiac output: 3.1 L/min Cardiac index: 1.6 L/min/m2 Right ventricle: Ejection fraction: 46% End diastolic volume: 108 mL (57 mL/m2, indexed) End systolic volume: 58 mL (31 mL/m2, indexed) Stroke volume: 50 mL (26 mL/m2, indexed) Cardiac output: 3.3 L/min Cardiac index: 1.8 L/min/m2 Flow quantification: Aorta above valve: Heart rate: 65 bpm Peak velocity: 0.9 m/sec Peak pressure gradient: 3 mmHg Fwd flow: 36 mL, 2.3 L/min Rev flow: 4 mL, 0.2 L/min Net flow: 32 mL, 2.1 L/min Regurgitant fraction: 10% Pulmonary artery above valve: Heart rate: 66 bpm Peak velocity: 1.0 m/sec Peak pressure gradient: 4 mmHg Fwd flow: 48 mL, 3.1 L/min Rev flow: 22 mL, 1.4 L/min Net flow: 26 mL, 1.7 L/min Regurgitant fraction: 46% Net flows per heartbeat: Right pulmonary artery (actual): 21 mL , 1.4 L/min Left pulmonary artery (actual): 16 mL , 1.0 L/min Total pulmonary artery (calculated): 37 mL , 2.4 L/min Functional analysis: Internal validation calculation: * Systemic stroke volume (47 mL) - Asc Ao fwd flow (36 mL) = 11 mL * Indirect mitral regurgitant fraction = 11 mL / LV stroke volume (47 mL) = 23% RPA:LPA flow = 21 mL : 16 mL = 57% vs 43% Dr. Marquis Perry also participated in the acquisition, post-processing, and interpretation of this exam. IMPRESSION: 1. 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 An additional focus of metal susceptibility artifact in the basal septum along the insertion of the septal leaflet of the tricuspid valve is indeterminate and may represent tricuspid valve repair. 2. Moderate-severe pulmonic regurgitation (regurgitant fraction = 46%). 3. Small right ventricular chamber size (RVEDVi = 57 mL/m2) with mildly reduced systolic function (RVEF = 46%). 4. Small left ventricular chamber size (LVEDVi = 41 mL/m2) with normal systolic function (LVEF = 61%). 5. Qualitatively mild mitral regurgitation. By indirect calculation, the regurgitant fraction is 23%. 6. Stable markedly dilated right atrium and inferior vena cava. 7. Mild patchy late gadolinium enhancement throughout much of the left ventricular myocardium, compatible with patchy myocardial fibrosis. This appears grossly similar to the prior exam on 11/08/2018, although direct comparison is difficult due to differences in technique. 8. Stable mild dilatation of the ascending aorta measuring 43 mm. Dictated by: Berry Dolan MD, PHD The radiology attending physician has personally reviewed this study, and had reviewed and/or edited this written report and agrees with it. Electronically signed by: Alfredo Miles M.D. us More Mars MD IMG MRI PROCEDURES Fin al Result * EXERCISE VO2 STUDY (06/20/2024 11:09 AM CDT) Anatomical Region Laterality Modality Other Narrative 06/20/2024 12:01 PM CDT Table formatting from the original result was not included. CARDIOPULMONARY EXERCISE TEST (CPET) INTERPRETATION Patient Name: Channing Sloan Age/Sex: 43 y.o./male MR#: [id number] Height: 167.6 cm Weight: 75.7 kg Referring Physician: More Mars,* Pretest Information: The patient was referred for a cardiopulmonary exercise test due to PA/IVS s/p repair. 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 of right ventricle Status post pulmonary valve replacement with bioprosthetic valve Elevated right ventricular end-diastolic pressure Adult congenital heart disease Chronic anticoagulation on Xarelto Low cardiac output syndrome (HCC) Mood disorder FAYE (obstructive sleep apnea) Atrial fibrillation and flutter (HCC) Episodic lightheadedness Acute idiopathic gout of multiple sites Chronic congestive heart failure with right ventricular diastolic dysfunction (HCC) Lipoma of head Current Outpatient Medications: amoxicillin, Take 4 tablet/capsule (2000 mg) by mouth once 30 minutes prior to dental cleaning or procedure atorvastatin, 20 mg, oral, Daily benzonatate, 100 mg, oral, TID PRN OneTouch Verio test strips, 200 each, other, See Admin Instructions blood-glucose meter, 1 each, miscellaneous, QID Dexcom G6 Transmitter, Use as directed to check blood glucose; change every 90 days Dexcom G7 Sensor, 1 Device, miscellaneous, Continuous empagliflozin, 10 mg, oral, Daily glucagon, Use as directed for low blood sugar. insulin detemir, 20 Units, subcutaneous, Daily (Patient not taking: Reported on 05/29/2024) insulin lispro, Use with insulin pump, TDD 50 units lisinopriL, 2.5 mg, oral, Daily multivitamin, 1 capsule, oral, Daily pen needle, diabetic, Use for insulin pens sotaloL, 120 mg, oral, BID spironolactone, 25 mg, oral, Daily t:slim X2 Control-IQ, USE DIRECTED Xarelto, TAKE 1 TABLET DAILY WITH DINNER Expiratory gas analysis was performed using the Ultima CardiO2 gas exchange analysis system and continuous ECG monitoring powered by [employer] ECG technology. Overall Impression and Observations: The test was performed without complications and was terminated due to fatigue. The patient exercised for a total of 5:38 minutes reaching stage 2 of the Jay protocol performed on the treadmill. Cardiovascular: The peak heart rate was 126 bpm, which is 70% of predicted. The highest oxygen pulse (VO2/HR) measured was 11 ml/beat, which is 65% of predicted. Patient had a normal blood pressure response to exercise. Maximum blood pressure achieved was 138/62, compared to baseline blood pressure of 116/60. ECG Characteristics: Baseline ECG showed normal sinus rhythm, MALENA, RBBB without T-wave abnormality. No ST segment changes seen during exercise. No T wave changes seen during exercise. Arrhythmias: Rare PVCs seen during exercise. Metabolic Gas Analysis: VO2 peak achieved was 18.5 mL/kg/min, which is 47% of predicted value. Ventilatory Anaerobic threshold was reached at 3:19 mins with a VO2 of 14.2 mL/kg/min (36% of peak predicted). RER at VO2 peak: 1.10 Ventilatory equivalent (VE/VCO2) at ventilatory anaerobic threshold was 40. Breathing [place] was 58.2% at peak VO2. Pulse oximetry was recorded during the test and remained constant between 95-99%. Test Interpretation: Abnormal Cardiopulmonary Exercise Test Exercise capacity is limited as seen by a peak VO2 of only 47% predicted which is likely secondary to cardiovascular etiology given the low VAT and low O2P. Elevated VE/VCO2 may be seen in patients in whom the transport of gases across the alveolar-capillary membrane is impaired (e.g., patients with elevated pulmonary capillary wedge pressures), in patients with right to left intracardiac shunts, and in patients with pulmonary vascular disease. The patient stopped exercising because of fatigue. Highest heart rate seen on pulse ox was 126 and could be secondary to medications and likely also inhibits exercise capacity. When compared to the previous CPET on 09/21/23 there is a similar peak VO2. There is a lower VAT and higher VE/VCO2 which worse. Interpreted By: Matt Murillo MD More Mars MD CV STRESS PROCEDURES F inal Result * (ABNORMAL) Thyroid Function [place] (06/01/2024 8:58 AM CDT) Pathologist [facility] TSH 4.93(H) 0.40 - 4.50 mIU/L [facility] Blood 06/01/2024 8:58 AM CDT 06/01/2024 8:58 AM CDT Narrative [facility] - 06/02/2024 6:58 AM CDT FASTING:YES FASTING: YES us Carol Quiñones NP LAB BLOOD ORDERABLES Fi nal Result [facility] [address] [place] [address] * Hepatitis C antibody Blood (06/01/2024 8:58 AM CDT) Pathologist [facility] Hep C Ab NON-REACTI VE NON-REACT [place] [facility] Comment: HCV antibody was non-reactive. There is no laboratory evidence of HCV infection. In most cases, no further action is required. However, if recent HCV exposure is suspected, a test for HCV RNA (test code 78755) is suggested. For additional information please refer to http://education.QVIVO/faq/MKC40f8 (This link is being provided for informational/ educational purposes only.) Blood 06/01/2024 8:58 AM CDT 06/01/2024 8:58 AM CDT Narrative [facility] - 06/02/2024 6:58 AM CDT FASTING:YES FASTING: YES Carol Quiñones LAB MICROBIOLOGY - GENE RAL ORDERABLES Final Result Performing Organization Address [facility]/ZIP Co de Phone Number [facility] [address] [employer] [address] * (ABNORMAL) Albumin Creatinine Ratio, Urine (06/01/2024 8:58 AM CDT) Creatinine, ur 112 20 - 320 mg/dL [facility] Microalbumin, ur 66.8 See Note: mg/dL [facility] Comment: Reference Range: Reference Range Not established Verified by repeat analysis. Microalbumin/creat ratio 596(H) <30 mg/g creat [facility] Comment: The ADA defines abnormalities in albumin excretion as follows: Albuminuria Category Result (mg/g creatinine) Normal to Mildly increased <30 Moderately increased 30-299 Severely increased > OR = 300 The ADA recommends that at least two of three specimens collected within a 3-6 month period be abnormal before considering a patient to be within a diagnostic category. Urine 06/01/2024 8:58 AM CDT 06/01/2024 8:58 AM CDT Narrative [facility] - 06/02/2024 6:58 AM CDT FASTING:YES FASTING: YES Carol Quiñones LAB URINE ORDERABLES Fi nal Result [facility] [address] [place] [address] * Hepatitis B core antibody, total Blood (06/01/2024 8:58 AM CDT) Pathologist [facility] Hep B core IgG/IgM NON-REACTI VE NON-REACTI VE [facility] Comment: For additional information, please refer to http://MedGRC/faq/YJU494 (This link is being provided for informational/ educational purposes only.) Blood 06/01/2024 8:58 AM CDT 06/01/2024 8:58 AM CDT Narrative [facility] - 06/02/2024 6:58 AM CDT FASTING:YES FASTING: YES Carol Quiñones NP LAB MICROBIOLOGY - GENE RAL ORDERABLES Final Result Performing Organization Address [facility] Co de Phone Number [facility] [address] [place] [address] * (ABNORMAL) Hepatitis B surface antibody (immune status) Blood (06/01/2024 8:58 AM CDT) Pathologist [facility] HBsAb (immune status) REACTIVE(A ) NON-REACTI VE [facility] Blood 06/01/2024 8:58 AM CDT 06/01/2024 8:58 AM CDT Narrative [facility] - 06/02/2024 6:58 AM CDT FASTING:YES FASTING: YES Carol Quiñones NP LAB MICROBIOLOGY - GENE RAL ORDERABLES Final Result Performing Organization Address [facility] Co de Phone Number [facility] [address] [place] [address] * Hepatitis B Surface Antigen Blood (06/01/2024 8:58 AM CDT) Pathologist [facility] HepBsAg NON-REACTI VE NON-REACTI VE [facility] Comment: For additional information, please refer to http://MedGRC/faq/AYW857 (This link is being provided for informational/ educational purposes only.) Blood 06/01/2024 8:58 AM CDT 06/01/2024 8:58 AM CDT Narrative [facility] - 06/02/2024 6:58 AM CDT FASTING:YES FASTING: YES Carol Quiñones DIGITAL X RAY SERVICE ENGINEER LAB MICROBIOLOGY - GENE RAL ORDERABLES Final Result Performing Organization Address City/[facility]/ZIP Co de Phone Number QUE[facility] [address] [phone] * (ABNORMAL) CBC without differential (06/01/2024 8:58 AM CDT) [facility] WBC 5.7 3.8 - 10.8 Thousand/u L [facility] RBC, POC 5.48 4.20 - 5.80 Million/uL [facility] Hgb 17.2(H) 13.2 - 17.1 g/dL [facility] Hct 51.9(H) 38.5 - 50.0 % [facility] MCV 94.7 80.0 - 100.0 fL [facility] MCH 31.4 27.0 - 33.0 pg [facility] MCHC 33.1 32.0 - 36.0 g/dL [facility] Comment: For adults, a slight decrease in the calculated MCHC value (in the range of 30 to 32 g/dL) is most likely not clinically significant; however, it should be interpreted with caution in correlation with other red cell parameters and the patient's clinical condition. Rdw 13.4 11.0 - 15.0 % [facility] Platelets 211 140 - 400 Thousand/u L [facility] MPV 12.7(H) 7.5 - 12.5 fL [facility] Blood 06/01/2024 8:58 AM CDT 06/01/2024 8:58 AM CDT Narrative [facility] - 06/02/2024 6:58 AM CDT FASTING:YES FASTING: YES Carol Quiñones DIGITAL [employer] R[employer] SERVICE ENGINEER LAB BLOOD ORDERABLES Fi nal Result [facility] [address] [place] [address] * T4, free (06/01/2024 8:58 AM CDT) Free T4 1.4 0.8 - 1.8 ng/dL [facility] 06/01/2024 8:58 AM CDT 06/01/2024 8:58 AM CDT Narrative [facility] - 06/02/2024 6:58 AM CDT FASTING:YES FASTING: YES Carol Quiñones DIGITAL [employer] SERVICE ENGINEER LAB BLOOD ORDERABLES Fi nal Result Performing Organization Address [facility] Co de Phone Number [facility] [address] [place] [address] * (ABNORMAL) Lipid panel (06/01/2024 8:58 AM CDT) Cholesterol 115 <200 mg/dL [facility] HDL 37(L) > OR = 40 mg/dL [facility] Triglycerides 98 <150 mg/dL [facility] LDL 60 mg/dL (calc) [facility] Comment: Reference range: <100 Desirable range <100 mg/dL for primary prevention; <70 mg/dL for patients with CHD or diabetic patients with > or = 2 CHD risk factors. LDL-C is now calculated using the Jovany-Aguirre calculation, which is a validated novel method providing better accuracy than the Friedewald equation in the estimation of LDL-C. Jovany EDGAR et al. LOVE. 2013;310(19): 5176-2355 (http://education.BlueLithium.Byliner/faq/KWA735) Chol/HDL ratio 3.1 <5.0 (calc) [facility] Non-HDL, (LDL+VLDL) 78 <130 mg/dL (calc) [facility] Comment: For patients with diabetes plus 1 major ASCVD risk factor, treating to a non-HDL-C goal of <100 mg/dL (LDL-C of <70 mg/dL) is considered a therapeutic option. Blood 06/01/2024 8:58 AM CDT 06/01/2024 8:58 AM CDT Narrative [facility] - 06/02/2024 6:58 AM CDT FASTING:YES FASTING: YES us Carol Quiñones DIGITAL X RAY SERVICE ENGINEER LAB BLOOD ORDERABLES Fi nal Result [facility] [address] [address] [phone] * (ABNORMAL) Comprehensive metabolic panel (06/01/2024 8:58 AM CDT) Glucose 181(H) 65 - 99 mg/dL [facility] Comment: Fasting reference interval For someone without known diabetes, a glucose value >125 mg/dL indicates that they may have diabetes and this should be confirmed with a follow-up test. BUN 21 7 - 25 mg/dL [facility] Creatinine 1.03 0.60 - 1.29 mg/dL [facility] eGFR 94 > OR = 60 mL/min/1.7 3m2 [facility] BUN/creat ratio SEE NOTE: 6 - 22 (calc) [facility] Comment: Not Reported: BUN and Creatinine are within reference range. Sodium 137 135 - 146 mmol/L [facility] Potassium, pl 4.3 3.5 - 5.3 mmol/L [facility] Chloride 103 98 - 110 mmol/L [facility] CO2 27 20 - 32 mmol/L [facility] Calcium 9.4 8.6 - 10.3 mg/dL [facility] Protein, sr 7.2 6.1 - 8.1 g/dL [facility] Albumin 4.4 3.6 - 5.1 g/dL [facility] GLOBULIN 2.8 1.9 - 3.7 g/dL (calc) [facility] Alb/glob ratio 1.6 1.0 - 2.5 (calc) [facility] Bilirubin, total 1.2 0.2 - 1.2 mg/dL [facility] Alk phos 99 36 - 130 U/L [facility] AST 29 10 - 40 U/L [facility] ALT (SGPT) 43 9 - 46 U/L [facility] Blood 06/01/2024 8:58 AM CDT 06/01/2024 8:58 AM CDT Narrative [facility] - 06/02/2024 6:58 AM CDT FASTING:YES FASTING: YES Carol Quiñones DIGITAL X RAY SERVICE ENGINEER LAB BLOOD ORDERABLES Fi nal Result [facility] [address] [place] [address] * (ABNORMAL) POCT hemoglobin A1c (05/29/2024 9:45 AM CDT) Hemoglobin A1C, POC 10.9 4.0 - 5.6 % Blood 05/29/2024 9:45 AM CDT Carol Quiñones NP POINT OF CARE TEST SAMI WALLACE Final Result * DIABETES EYE EXAM (03/26/2024) 03/26/2024 Historical Provider HEALTH MAINTENANCE Final Result from Last 3 Months or Most Recently Relevant to Health Maintenance Insurance [facility] AETNA SIGNATURE [facility] [employer] SIGNATURE Advance Directives For more information, please contact: [phone] * Full Code (Latest Code Status on File) Date Activated Date Inactivated Comments 09/17/2022 2:44 PM 09/20/2022 10:47 PM Care Teams Cooking Show Host Relationship Specialty Start Date End Date [place] [address] PCP - General Family Medicine 10/26/21 Cam Oliveira Jr., MD Consulting Physician Endocrinology Diabetes & Metabolism 08/06/21 More Mars MD [address] [place] [address] Consulting Physician Pediatric Cardiology 08/06/21
--- OUTSIDE RECORDS SUMMARY | 2024-07-02 13:20 | XMS_ITS | Clinical Summary ---
Author Organization [facility] Address [address] [place] [address] Care Team Providers Care Can Pusher Name Role Phone Roxanne Meza MD, Cam Ballard Unavailable More Mars MD Unavailable Phoenix Colon MD Primary Care Provider [phone] Allergies No known active allergies Medications glucagon (glucagon) 1 mg kit Use as directed for low blood sugar. 1 kit Active blood-glucose meter (OneTouch Verio Meter) misc 1 each 4 (four) times a day 1 each 021 Active blood glucose diagnostic (OneTouch Verio test strips) strip 200 each by other route as directed Use to measure blood glucose 4 times daily 200 each 021 Active multivitamin capsule Take 1 capsule by mouth daily Active insulin detemir (LEVEMIR) 100 unit/mL (3 mL) pen for injectionIndicatio ns:Type 2 diabetes mellitus with hypoglycemia without coma, with long-term current use of insulin (HCC),Type 2 diabetes mellitus without complication, without long-term current use of insulin (HCC) Inject 20 Units under the skin daily 18 mL 3 023 Active Additional Information Patient not taking.Reported on 05/29/2024 pen needle, diabetic (BD Ultra-Fine Jeannine Pen Needle) 32 gauge x 5/32 needleIndications: Type 2 diabetes mellitus with hypoglycemia without coma, with long-term current use of insulin ([facility]),Type 2 diabetes mellitus without complication, without long-term current use of insulin ([facility]) Use for insulin pens 369 each 3 023 Active T:Slim X2 Control-IQ misc USE DIRECTED 1 each 024 Active insulin lispro (HumaLOG) 100 unit/mL vial for injectionIndicatio ns:Type 2 diabetes mellitus with hypoglycemia without coma, with long-term current use of insulin ([facility]) Use with insulin pump, TDD 50 units [...] coma, with long-term current use of insulin ([facility]) Use as directed to check blood glucose; [...] valve replacement with bioprosthetic valve,Nonrheumatic pulmonary valve insufficiency,Stockroom Attendant yajaira 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 Continue current medication. Acute idiopathic gout of multiple sites 04/28/19 Assessment & Plan (04/28/2023 4:49 PM PHOTOENGRAVING APPRENTICE): Stable, well controlled; patient reports occasional flares; [...] 03/24/2022 Assessment & Plan (04/28/2023 4:49 PM PHOTOENGRAVING APPRENTICE): Stable, well controlled; patient was not able to start CPAP; patient reports improved sleep quality; less daytime sleepiness; will continue to monitor Mood disorder 10/27/2021 Assessment & Plan (04/28/2023 4:49 PM PHOTOENGRAVING APPRENTICE): Stable well controlled; no major issues; patient [...] flutter afterwards. >>OVERVIEW FOR ATRIAL FLUTTER (CMS/HCC) ([facility]) WRITTEN ON 10/19/2021 10:37 AM BY TIM VALENTE Added automatically from request for surgery [id number] Assessment & Plan (05/29/2024 10:27 AM CDT): Normal sinus rhythm today in office, continue sotalol prescribed by Dr. Carey. Uses Xarelto for anticoagulation. Assessment & Plan (05/19/2023 9:22 AM PHOTOENGRAVING APPRENTICE): He is doing well on sotalol with limited AF recurrence in setting of COVID QT interval stable, QTc 487 ms Continue sotalol 120 mg BID BMP today Continue Xarelto for stroke risk reduction Assessment & Plan (04/28/2023 12:43 PM PHOTOENGRAVING APPRENTICE): >>ASSESSMENT AND PLAN FOR ATRIAL FLUTTER ([facility]) ([facility]) WRITTEN ON 11/22/2021 8:47 PM BY PHOENIX COLON MD Stable, s/p cardioversion, currently in NSR Assessment & Plan (04/28/2023 12:43 PM PHOTOENGRAVING APPRENTICE): >>ASSESSMENT AND PLAN FOR ATRIAL FIBRILLATION ([facility]) ([facility]) WRITTEN ON 10/27/2021 4:56 PM BY PHOENIX COLON MD EKG performed today; rate of 100, irregularly irregular, atrial fibrillation flutter Possible right bundle-branch block and right axis deviation QRS complex near Assessment & Plan (04/28/2023 12:43 PM PHOTOENGRAVING APPRENTICE): >>ASSESSMENT AND PLAN FOR ATRIAL FIBRILLATION (CMS/HCC) ([facility]) WRITTEN ON 09/28/2022 1:29 PM BY PHOENIX COLON MD Stable, and regular rate and rhythm today; continue sotalol 120 mg b.i.d.; Xarelto 20 mg daily Assessment & Plan (04/28/2023 12:43 PM PHOTOENGRAVING APPRENTICE): >>ASSESSMENT AND PLAN FOR ATRIAL FIBRILLATION (CMS/HCC) ([facility]) WRITTEN ON 10/29/2022 2:19 PM BY RENE [...] 01/20/2021 Assessment & Plan (05/19/2023 9:22 AM PHOTOENGRAVING APPRENTICE): 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 Assessment & Plan (04/28/2023 4:48 PM PHOTOENGRAVING APPRENTICE): Not well controlled; last A1c elevated at [...] 05/29/2024 Assessment & Plan (04/13/2024 10:15 AM PHOTOENGRAVING APPRENTICE): Acute nodule in nostril with some surrounding swelling. Will send bactrim to treat. If symptoms worsen or do not improve recommend in person evaluation. Patient verbalized understanding and agreed to plan of care at this time. Encounters Date Type Department Care Team Description 06/21/2024 Telephone [facility] Pediatric Cardiology [facility] 2nd [place] [address] [place] [address] Tammi Neville 06/20/2024 2:00 PM CDT Office Visit [facility] Pediatric Cardiology [facility] 2nd [place] [address] [place] [address] More Mars MD 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); Atrial fibrillation and flutter (HCC); Status post pulmonary valve replacement with bioprosthetic valve; Prosthetic pulmonary valve insufficiency; Elevated right ventricular end-diastolic pressure; Chronic congestive heart failure with right ventricular diastolic dysfunction (HCC); Chronic systolic dysfunction of right ventricle 06/20/2024 11:12 AM CDT - 06/20/2024 11:59 PM CDT Hospital Encounter [facility] [place] [address] Chronic congestive heart failure with right ventricular diastolic dysfunction (HCC); Status post pulmonary valve replacement with bioprosthetic valve; Chronic systolic dysfunction of right ventricle; Nonrheumatic pulmonary valve insufficiency Discharge Disposition: Discharge to home or self care 06/20/2024 10:30 AM CDT - 06/20/2024 11:59 PM CDT Hospital Encounter [facility] Pediatric Cardiology [facility] [address] [place] [address] Chronic congestive heart failure with right ventricular diastolic dysfunction (HCC); Pulmonary atresia with intact ventricular septum; Prosthetic pulmonary valve insufficiency; Atrial fibrillation and flutter (HCC); Status post pulmonary valve replacement with bioprosthetic valve; Elevated right ventricular end-diastolic pressure Discharge Disposition: Discharge to home or self care 06/04/2024 Results Follow-Up [facility] Primary Care at [address] [address] Carol Quiñones NP 05/31/2024 9:30 AM CDT Office Visit [facility] Diabetes Endocrine Care at [address] [address] Tl Cruz DO Type 2 diabetes mellitus with hypoglycemia without coma, with long-term current use of insulin (HCC) 05/29/2024 9:30 AM CDT Office Visit [facility] Primary Care at [address] [address] Carol Quiñones NP Type 2 diabetes mellitus [...] Screening for thyroid disorder; Screening for hyperlipidemia 05/29/2024 Telephone [facility] [address] [place] [address] Phoenix Colon MD Medical Question/Miscellaneous 04/13/2024 9:45 AM PHOTOENGRAVING APPRENTICE Telemedicine [facility] Virtual Care [address] [place] [address] Sabiha Denis NP Abscess (Primary Dx) 04/13/2024 Patient Self-Triage [facility] [address] [place] [id number] Mychart, Generic Provider from Last 3 Months Immunizations Immunization Administration Dates Next Due Hep A, Adult 02/12/2023 Influenza, Quadrivalent, Spl it, Preservative Free, Intramuscular 11/29/2022 Influenza, Trivalent, Preser vative Free, Intramuscular 12/15/2023 Influenza, Unspecified 06/02/2023(Deferr ed: Patient Refused),12/22/2022(Deferred: Patient Refused),01/03/2022,11/12/2021(Deferre d: Patient Refused),10/26/2021(Deferred: Not available from middle or intermediate school principal),12/12/2020(Deferred: Patient Refused) Surgical History Surgery Date Site/Laterality Comments SUBCLAVIAN / PULMONARY SHUNT 1982 Right [facility] PULMONARY VALVULOPLASTY 02/27/1983 [facility] SUBCLAVIAN / PULMONARY SHUNT 03/14/1985 - 03/13/1986 Left CARDIAC SURGERY 11/23/1990 RVOT patch angioplasty across TV, Dr. Didier Conley, [facility] PULMONARY VALVE REPLACEMENT 02/23/2019 with 25mm Inspiris bioprosthetic valve, Dr. Welch, [facility] in [place], [place] HERNIA REPAIR 03/14/2016 - 03/13/2017 Right SHUNT EXTERNALIZATION 1982 Medical History Medical History Date Comments Pulmonary atresia with intact ventricular septum 01/20/2021 Status post pulmonary valve replacement with bioprosthetic valve 01/20/2021 Chronic systolic dysfunction of right ventricle 01/20/2021 Type 2 diabetes mellitus wit h hypoglycemia, with long-term current use of insulin (HCC) 09/18/2020 Heart disease , 1982 Atrial fibrillation (HCC) Family History Medical History Relation Name Comments Diabetes Maternal Grandfather Diabetes Maternal Grandmother Heart disease Maternal Grandmother Diabetes Mother Jie Gustafson Diabetes Mother's Brother Rikki Freitasacofe Diabetes Mother's Sister 1 Nevin Freitasacofe Diabetes Mother's Sister 2 Miram Preston Stroke Paternal Grandfather Breast cancer Paternal Grandmother Relation Name Status Comments Maternal Grandfather Maternal Grandmother Mother Jie Saucedofe Mother's Brother Rikki Freitasacofe Mother's Sister 1 Nevin Freitasacofe Mother's Sister 2 Miram Preston Paternal Grandfather Paternal Grandmother Social History Tobacco Use Types Packs/Day Years [...] often do you attend chur ch or orthodoxy services? Never 09/28/2022 Do you belong to any clubs o r organizations such as jewish groups, unions, fraternal or athletic groups, or [...] staff should administer the PHQ-9) 0 05/29/2024 [facility] - Occupational Stress Questionnaire Answer Date Recorded [...] place to sleep or slept in a custodial (including now)? No 09/28/2022 PHQ-9 Answer Date [...] Orientation Straight 01/14/2021 7: 17 PM CDT Obstetrics History Last Filed Vital Signs Vital Sign Reading [...] 06/20/2024 1:59 PM CDT Plan of Treatment Health Maintenance Due Date Last Done Comments DTaP/Tdap/Td Vaccine (1 - Tdap) 1993 Pneumococcal vaccine <65 (1 of 2 - PCV) 2001 Hemoglobin A1C 11/29/2024 05/29/2024, 08/13, 02/17/2023, Additional history exists Dilated Eye Exam 03/26/2025 03/26/2024, 03/03/2023 Depression Screening 05/29/2025 05/29/2024, 05/29/2024, 04/28/2023, Additional history exists Foot Exam 05/29/2025 05/29/2024, 11/12/2021 Regular Well Visit/Exam 18-64 05/29/2025 05/29/2024, 11/12/2021 Albumin Creatinine Ratio, Urine 06/01/2025 06/01/2024, 04/28/2023, 10/26/2021, Additional history exists Lipid Panel 06/01/2025 06/01/2024, 10/12, 09/18/2020 eGFR 06/01/2025 06/01/2024, 11/12, 05/19/2023, Additional history exists Covid-19 Vaccine Completed 12/15/2023, , 04/05/2022, Additional history exists Influenza Vaccine Completed 12/15/2023, , 01/03/2022 Hepatitis B Screening Completed 06/01/2024 Hepatitis C Screening Completed 06/01/2024 HPV Vaccines Aged Out No longer eligi ble based on patient's age to complete this topic Varicella Vaccines Discontinued Procedures Procedure Name Priority Date/Time Associated Diagnosis [...] PM CDT) Ventricular Rate EKG/Min 65 BPM [facility] Atrial Rate 65 BPM [facility] NM-Interval (MSEC) 220 ms [facility] QRS-Interval (MSEC) 146 ms [facility] QT-Interval (MSEC) 520 ms [facility] QTc 540 ms [facility] P [place] 53 degrees [facility] R [place] 142 degrees [facility] T [place] 94 degrees [facility] Diagnosis Sinus rhythm with 1st degree A-V block Right atrial enlargement Right bundle branch block Right axis deviation T wave inversions in precordial and lateral leads Abnormal ECG When compared with ECG of 14-SEP-2023 14:08, Precordial T wave inversions are new Confirmed by More Mars ([id number]) on 06/20/2024 10:43:06 PM [facility] 06/20/2024 2:11 PM CDT 06/20/2024 10:43 PM CDT us More Mars MD ECG ORDERABLES Final Result [facility] * MRI Cardiac M&F W WO [...] Name: Channing Sloan Age/Sex: 43 y.o./male MR#: [id number] Height: 167.6 cm Weight: 75.7 kg Referring Physician: More Mars,* Pretest Information: The patient was referred for a cardiopulmonary exercise test due to PA/IVS s/p repair. The patient has a diagnosis: Patient Active Problem List Diagnosis Type 2 diabetes mellitus with hypoglycemia, with long-term current use of insulin (HCC) Cardiac risk counseling Pulmonary atresia with intact [...] system and continuous ECG monitoring powered by Trutap ECG technology. Overall Impression and Observations: The [...] at ventilatory anaerobic threshold was 40. Breathing [place] was 58.2% at peak VO2. Pulse oximetry [...] which worse. Interpreted By: Matt Murillo MD us More Mars MD CV STRESS PROCEDURES F inal Result * (ABNORMAL) Thyroid Function Long (06/01/2024 8:58 AM CDT) TSH 4.93(H) 0.40 - 4.50 mIU/L [facility] Blood 06/01/2024 8:58 AM CDT 06/01/2024 8:58 AM CDT Narrative [facility] - 06/02/2024 6:58 AM CDT FASTING:YES FASTING: YES Carol Quiñones PROFESSOR OF LITERATURE LAB BLOOD ORDERABLES Fi nal Result Performing Organization Address [facility] Co de Phone Number [facility] [address] [place] [address] * Hepatitis C antibody Blood (06/01/2024 8:58 AM CDT) [facility] Hep C Ab NON-REACTI VE NON-REACT [place] [facility] Comment: HCV antibody was non-reactive. There is no laboratory evidence of HCV infection. In most cases, no further action is required. However, if recent HCV exposure is suspected, a test for HCV RNA (test code 49179) is suggested. For additional information please refer to http://education.Rift.io/faq/AMS98d7 (This link is being provided for informational/ educational purposes only.) Blood 06/01/2024 8:58 AM CDT 06/01/2024 8:58 AM CDT Narrative [facility] - 06/02/2024 6:58 AM CDT FASTING:YES FASTING: YES Carol Quiñones NP LAB MICROBIOLOGY - GENE RAL ORDERABLES Final Result Performing Organization Address [facility] de Phone Number [facility] [address] [place] [address] * (ABNORMAL) Albumin Creatinine Ratio, Urine (06/01/2024 8:58 AM CDT) [facility] Creatinine, ur 112 20 - 320 mg/dL [...] FASTING:YES FASTING: YES Carol Quiñones NP LAB URINE ORDERABLES Fi nal Result Performing Organization Address [facility] Co de Phone Number [facility] [address] [place] [address] * Hepatitis B core antibody, total Blood (06/01/2024 8:58 AM CDT) Hep B core IgG/IgM NON-REACTI VE NON-REACTI VE [facility] Comment: For additional information, please refer to http://education.Rift.io/faq/GHZ212 (This link is being provided for informational/ educational purposes only.) Blood 06/01/2024 8:58 AM CDT 06/01/2024 8:58 AM CDT Narrative [facility] - 06/02/2024 6:58 AM CDT FASTING:YES FASTING: YES Carol Quiñones NP LAB MICROBIOLOGY - GENE RAL ORDERABLES Final Result Performing Organization Address [facility] Co de Phone Number [facility] [address] [place] [address] * (ABNORMAL) Hepatitis B surface antibody (immune status) Blood (06/01/2024 8:58 AM CDT) HBsAb (immune status) REACTIVE(A ) NON-REACTI VE [facility] Blood 06/01/2024 8:58 AM CDT 06/01/2024 8:58 AM CDT Narrative [facility] - 06/02/2024 6:58 AM CDT FASTING:YES FASTING: YES Carol Quiñones PROFESSOR OF LITERATURE LAB MICROBIOLOGY - GENE RAL ORDERABLES Final Result Performing Organization Address [facility] de Phone Number [facility] [address] [place] [address] * Hepatitis B Surface Antigen Blood (06/01/2024 8:58 AM CDT) [facility] HepBsAg NON-REACTI VE NON-REACTI VE [facility] Comment: For additional information, please refer to http://education.Rift.io/faq/JJR192 (This link is being provided for informational/ educational purposes only.) Blood 06/01/2024 8:58 AM CDT 06/01/2024 8:58 AM CDT Narrative [facility] - 06/02/2024 6:58 AM CDT FASTING:YES FASTING: YES Carol Quiñones NP LAB MICROBIOLOGY - GENE RAL ORDERABLES Final Result Performing Organization Address [facility] Phone Number [facility] [address] [place] [address] * (ABNORMAL) CBC without differential (06/01/2024 8:58 AM CDT) [facility] WBC 5.7 3.8 - 10.8 Thousand/u L [...] AM CDT FASTING:YES FASTING: YES Carol Quiñones PROFESSOR OF LITERATURE LAB BLOOD ORDERABLES Fi nal Result Performing Organization Address [facility] Co de Phone Number [facility] [address] [place] [address] * T4, free (06/01/2024 8:58 AM CDT) Pathologist [facility] Free T4 1.4 0.8 - 1.8 ng/dL [facility] 06/01/2024 8:58 AM CDT 06/01/2024 8:58 AM CDT Narrative [facility] - 06/02/2024 6:58 AM CDT FASTING:YES FASTING: YES Carol Quiñones PROFESSOR OF LITERATURE LAB BLOOD ORDERABLES Fi nal Result Performing Organization Address City/[facility]/ZIP Co de Phone Number [facility] [address] [place] [address] * (ABNORMAL) Lipid panel (06/01/2024 8:58 AM [...] factors. LDL-C is now calculated using the Kim calculation, which is a validated novel method providing better accuracy than the Friedewald equation in the estimation of LDL-C. Jovany SS et al. LOVE. 2013;310(62): 9996-3009 (http://education.BEST [employer]/faq/ZNL291) Chol/HDL ratio 3.1 <5.0 (calc) [facility] [...] AM CDT FASTING:YES FASTING: YES Carol Quiñones PROFESSOR OF LITERATURE LAB BLOOD ORDERABLES nal Result [facility] [address] [place] [address] * (ABNORMAL) Comprehensive metabolic panel (06/01/2024 8:58 AM CDT) [facility] Glucose 181(H) 65 - 99 mg/dL [facility] [...] [facility] BUN/creat ratio SEE NOTE: (calc) [facility] Comment: Not Reported: [...] CDT FASTING:YES FASTING: YES us Carol Quiñones PROFESSOR OF LITERATURE LAB BLOOD ORDERABLES Fi nal Result [facility] [address] [address] * (ABNORMAL) POCT hemoglobin A1c (05/29/2024 9:45 AM CDT) Hemoglobin A1C, POC 10.9 4.0 - 5.6 % Blood 05/29/2024 9:45 AM CDT us aCrol Quiñones PROFESSOR OF LITERATURE POINT OF CARE TEST SAMI WALLACE Final Result * DIABETES EYE EXAM (03/26/2024) 03/26/2024 us Historical Provider HEALTH MAINTENANCE Final Result from Last 3 Months or Most Recently Relevant to Health Maintenance Insurance [facility] AETNA SIGNATURE [facility] AET[employer] SIGNATURE Advance Directives For more information, please contact: [phone] * Full Code (Latest Code Status on File) Date Activated Date Inactivated Comments 09/17/2022 2:44 PM 09/20/2022 10:47 PM Care Teams Can Pusher Relationship Specialty Start Date End Date Phoenix Colon [place] [address] PCP - General Family Medicine 10/26/21 Cam Oliveira Jr., MD Consulting Physician Endocrinology Diabetes & Metabolism 08/06/21 More Mars MD [address] [place] [address] Consulting Physician Pediatric Cardiology 08/06/21
--- OUTSIDE RECORDS SUMMARY | 2024-07-02 13:20 | XMS_ITS | Encounter Summary ---
Author Organization [facility] Address [address] [place] [address] Phone Care Team Providers Care Appraiser Land Name Role Phone Referral, Self Primary Care Provider Unavailabl e No, Physician Primary Care Provider Roxanne Meza MD, Cam Ballard Unavailable More Mars MD Unavailable Phoenix Tejeda MD Primary Care Provider [phone] Encounter Details Date Type Department Care Team (Late st Contact Info) Description 11/19/2020 Telephone [facility] Cardiology [address] [facility] Advanced Medicine 8th [place] [address] [place] [address] More Mars MD [address] [place] [address] Social History Tobacco Use Types Packs/Day Years Used Date Smoking Tobacco: Never Smokeless Tobacco: Never Sex and Gender Information Value Date Recorded Sex Assigned at Not on file Legal Sex Male 2:38 PM CDT Gender Identity Male 01/14/2021 7:17 PM CDT Sexual Orientation Straight 01/14/2021 7: 17 PM CDT documented as of this encounter Plan of Treatment Not on file documented as of this encounter Visit Diagnoses Not on filedocumented in this encounter Additional Health Concerns Infection Onset Date Last Indicated Resolved Time COVID: Suspected 10/06/2021 10/06/2021 10/07/2021 12:16 AM CDT COVID: Suspected 07/24/2022 07/24/2022 07/24/2022 10:08 AM CDT COVID: Suspected 07/24/2022 07/24/2022 07/24/2022 3:56 PM CDT documented as of this encounter Care Teams Appraiser Land Relationship Specialty Start Date End Date Referral, Self PCP - General 08/21/20 07/13/21 No, Physician PCP - General 07/14/21 10/25/21 Phoenix Tejeda MD [address] [place] [address] PCP - General Family Medicine 10/26/21 Cam Oliveira Jr., MD Consulting Physician Endocrinology Diabetes & Metabolism 08/06/21 More Mars MD [address] [place] [address] Consulting Physician Pediatric Cardiology 08/06/21 documented as of this encounter
--- OUTSIDE RECORDS SUMMARY | 2024-07-02 13:20 | XMS_ITS | Encounter Summary ---
Author Organization [facility] Healthcare Address [address] [place] [address] Care Team Providers Care Transcription Name Role Phone Roxanne Meza MD, Cam Ballard Unavailable More Mars MD Unavailable [phone] Phoenix Tejeda MD Primary Care Provider [phone] Encounter Details Date Type Department Care Team (Late st Contact Info) Description 06/04/2024 Results Follow-Up [facility] Primary Care at [address] [place] [address] Carol Quiñones, DELI COOK [address] [address] Social History Tobacco Use Types Packs/Day Years Used Date Smoking Tobacco: Never Smokeless Tobacco: Never Humiliation, Afraid, Rape, and Kick questionnair e [...] often do you attend chur ch or anabaptist services? Never 09/28/2022 Do you belong to any clubs o r organizations such as christianity groups, unions, fraternal or athletic groups, or [...] staff should administer the PHQ-9) 0 05/29/2024 [facility] [place] of Occupat ional Health - Occupational Stress Questionnaire Answer Date [...] place to sleep or slept in a fci (including now)? No 09/28/2022 PHQ-9 Answer Date [...] Diagnoses Not on filedocumented in this encounter Care Teams Transcription Relationship Specialty Start Date End [place] [address] PCP - General Family Medicine 10/26/21 Cam Oliveira Jr., MD Consulting Physician Endocrinology Diabetes & Metabolism 08/06/21 More Mars MD [address] [place] [address] Consulting Physician Pediatric Cardiology 08/06/21 documented as of this encounter
--- OUTSIDE RECORDS SUMMARY | 2024-07-02 13:20 | XMS_ITS | Encounter Summary ---
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 (All Locations) Referral ID Status Reason Start Date Expiration Date Visits Re quested Visits Authorized [id number] Closed 09/14/2023 10/13/2024 1 1 Encounter Details Date Type Department Care Team (Late st Contact Info) Description 09/14/2023 4:00 PM CDT Hospital Encounter [facility] Pediatric Cardiology [address] [place] [address] Social History Tobacco Use Types Packs/Day Years [...] 09/28/2022 How often do you attend chur or baptism services? Never 09/28/2022 Do you belong to any clubs o r organizations such as temple groups, unions, fraternal or athletic groups, or [...] staff should administer the PHQ-9) 0 05/29/2024 [facility] of Occupat ional Health - Occupational Stress [...] place to sleep or slept in a alf (including now)? No 09/28/2022 PHQ-9 Answer Date [...] PM CDT documented as of this encounter Functional Status * Audit-C Score Answer Date of Assessment Author 2 05/29/2024 10:08 AM CDT Carol Quiñones NP * Question Answer Date of Assessment Author Q1: How often do you have a drink containing alcohol? 2-4 times a month 05/29/2024 10:08 AM CDT Estefany Quiñones NP Q2: How many drinks containing alcohol do you have on a typical day when you are drinking? 1 or 2 05/29/2024 10:08 AM CDT Estefany Quiñones NP Q3: How often do you have six or more drinks on one occasion? 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 Holter Report Patient Name: Channing Sloan Date: 09/26/2023 Age: 42 y.o. Gender: male Interpreting Physician(s): Belem Vegas MD Indications for Study: Cardiomyopathy A full disclosure print out was not available for this study. Overall Heart Rate Profile: During the 7 day extended Holter monitor, the predominant rhythm was sinus rhythm with a minimum heart rate of 55, maximum heart rate of 163, and average heart rate of 69. There was normal circadian variability. Atrial and Junctional Arrhythmias: Frequent PACs were present. Frequent episodes of atrial tachycardia were present. 310 episodes of atrial tachycardia lasted as long as 9 beats with the fastest rate of 163bpm. No pauses noted >2 seconds. Ventricular Arrhythmias: No ventricular arrhythmias were seen. Occasional PVC's were present. PVC burden accounted for <0.01% of all beats. No ventricular couplets. Single ventricular triplet, shown below. Miscellaneous: There were 5 patient events noted (lightheaded, dizzy, near syncope, NOS) -- correlate with sinus rhythm. Test Conclusion: Abnormal study. us More Mars MD [facility] Final Result documented in this encounter Visit Diagnoses Not on filedocumented in this encounter Care Teams Field Assistant Relationship Specialty Start Date End Date Phoenix Tejeda MD [address] [place] [address] PCP - General Family Medicine 10/26/21 Cam Oliveira Jr., MD Consulting Physician Endocrinology Diabetes & Metabolism 08/06/21 More Mars MD [address] [place] [address] Consulting Physician Pediatric Cardiology 08/06/21 documented as of this encounter
== END ==
LOC: ANHLAB 11:33
PROVIDERS: Visit Provider Plastic Surgery
DX: R22.0 Localized swelling, mass and lump, head (principal)
CPT/HCPCS: 88305

== ENCOUNTER 2024-10-08 11:42 | Emergency (ER) | payer OTHER, SELFPAY ==
--- NOTE | ~2024-10-08 | CT_ITS ---
CLINICAL INDICATION: Right lower quadrant pain COMPARISON: None. TECHNIQUE: Multiple contiguous axial images of the abdomen and pelvis were performed following the ad ministration of with 100 mL Omnipaque-350 intravenous contrast The dose-length product (DLP) was 467.88 mGy-cm. Automated exposure control and iterative reconstruction technique were employed. FINDINGS/OBSERVATIONS: Visualized lower thorax: The bilateral lung bases are clear. The heart is markedly enlarged (specifically the right atrium), without significant pericardial effus ion. Liver: The liver demonstrates heterogeneous enhancement and is not enlarged. Gallbladder and biliary system: The gallbladder is distended, with trace surrounding inflammatory change. Subcentimeter focus of incr eased attenuation within the central most portion of the gallbladder, possibly representing an impact ed stone for which right upper quadrant ultrasound may be performed. Pancreas: The pancreas enhances homogeneously without ductal dilatation. Spleen: The spleen enhances homogeneously and is not enlarged. Kidneys: The bilateral kidneys enhance symmetrically without hydronephrosis or renal calculi. Adrenal glands: Unremarkable. Gastrointestinal tract: Fecal stasis within the cecum. Appendix: The air-filled appendix is of normal caliber (axial series, images 118 through 132) Vasculature: Calcified atherosclerotic disease. Lymph nodes: No pathologically enlarged or morphologically suspicious lymph nodes within the retroperitoneum or at the root of the mesentery. Pelvic structures: The bladder is irregular in contour, and otherwise unremarkable. The prostate gland is not enlarged. Body wall and musculoskeletal: Fat-containing left inguinal hernia. No significant degenerative disease within the lower thoracic or lumbosacral spine. IMPRESSION: Gallbladder distention with trace surrounding inflammatory change, an additional findings suggesting a possible impacted stone for which focused ultrasound may be performed for confirmation. Heterogeneous enhancement of the liver, which is not enlarged. Left inguinal hernia. Reviewed, dictated and finalized at location A. IMPRESSION: Gallbladder distention with trace surrounding inflammatory change, an additiona l findings suggesting a possible impacted stone for which focused ultrasound ma y be performed for confirmation. Heterogeneous enhancement of the liver, which is not enlarged. Left inguinal hernia.
--- NOTE | ~2024-10-08 | US_ITS ---
EXAM: ABDOMEN ULTRASOUND HISTORY: RUQ pain COMPARISON: CT examination of the abdomen and pelvis, performed one hour earlier FINDINGS: LIVER: The liver is heterogeneous in echogenicity and unremarkable size. The portal vein is pulsatile (markedly abnormal) but demonstrates appropriate direction of flow (hepa topedal). GALLBLADDER: No stones are identified within the gallbladder, which is distended and demonstrates wal l thickening. No hyperemia was interrogated on ultrasound examination. BILE DUCTS: Common bile duct measures 3.9mm. PANCREAS: Limited evaluation of the pancreas secondary to overlying bowel gas IMPRESSION: Limited evaluation of the pancreas secondary to overlying bowel gas. Heterogeneous echogenicity within the liver. Abnormal waveform within the portal vein with appropriate direction of flow. No gallbladder stones. The gallbladder is distended with wall thickening. Reviewed, dictated and finalized at location A.
--- OUTSIDE RECORDS SUMMARY | 2024-10-08 11:54 | XMS_ITS | Encounter Summary ---
Author Organization [facility] Healthcare Address [address] [place] [address] Care Team Providers Care Php Website Developer Name Role Phone Roxanne Meza MD, Cam Ballard Unavailable More Mars MD Unavailable Phoenix Tejeda MD Primary Care Provider [phone] Encounter Details Date Type Department Care Team (Late st Contact Info) Description 09/27/2024 Results Follow-Up [facility] Diabetes Endocrine Care at [address] [place] [address] Tl Cruz, DO [address] [place] [address] [address] [place] [address] GELY-65 autoantibody, ZINC TRANSPORTER 8 (ZnT8) ANTIBODY, Anti-islet cell antibody, Additional followed-up results: 2 Social History Tobacco Use Types Packs/Day Years [...] often do you attend chur ch or jain services? Never 09/28/2022 Do you belong to any clubs o r organizations such as restorationism groups, unions, fraternal or athletic groups, or school groups? No 09/28/2022 How often do you attend meet ings of the clubs or organizations you belong to? Never 09/28/2022 Are you , , di vorced, , never , or living with a partner? 09/28/2022 AUDIT-C Answer Date Recorded Q1: How often do you have a drink containing alc ohol? 2-4 times a month 08/22/2024 Q2: How many drinks containi ng alcohol do you have on a typical day when you are drinking? 1 or 2 08/22/2024 Q3: How often do you have si x or more drinks on one occasion? Never 08/22/2024 Overall Financial Resource Strain (CARDIA) Answe r Date Recorded How hard is it for you to pa y for the very basics like food, housing, medical care, and heating? Not hard at all 09/28/2022 PHQ-2 Answer Date Recorded PHQ-2 Total Score (If total score is 3 or more points, staff should administer the PHQ-9) 0 05/29/2024 [facility] ional [facility] - Occupational Stress [...] making you feel afraid or unsafe? Denies 08/29/2024 Sex and Gender Information Value Date Recorded Sex Assigned at Not on file Legal Sex Male 2:38 PM CDT Gender Identity Male 01/14/2021 7:17 PM CDT Sexual Orientation Straight 01/14/2021 7: 17 PM CDT documented as of this encounter Miscellaneous Notes * Telephone Encounter - Sharon Ambrosio MA - 09/27/2024 1:08 PM CDT Please see message and advise, thank you. documented in this encounter Plan of Treatment Not on file documented as of this encounter Visit Diagnoses Not on filedocumented in this encounter Care Teams Php Website Developer Relationship Specialty Start Date End Date [place] [address] PCP - General Family Medicine 10/26/21 Cam Oliveira Jr., MD Consulting Physician Endocrinology Diabetes & Metabolism 08/06/21 More Mars MD Consulting Physician Pediatric Cardiology 08/06/21 documented as of this encounter
--- OUTSIDE RECORDS SUMMARY | 2024-10-08 11:54 | XMS_ITS | Encounter Summary ---
Author Organization [facility] Address [address] [place] [address] Phone Care Team Providers Care Fusing Machine Tender Name Role Phone Referral, Self Primary Care Provider Unavailabl e No, Physician Primary Care Provider [phone] Roxanne Meza MD, Cam Ballard Unavailable More Mars MD Unavailable Phoenix Tejeda MD Primary Care Provider [phone] Encounter Details Date Type Department Care Team (Late st Contact Info) Description 11/19/2020 Telephone [facility] Cardiology [facility] [address] [place] [address] [place] [address] More Mars MD [address] [place] [address] Social History Tobacco Use Types [...] documented as of this encounter Care Teams Fusing Machine Tender Relationship Specialty Start Date End Date Referral, Self PCP - General 08/21/20 07/13/21 No, Physician PCP - General 07/14/21 10/25/21 Phoenix Tejeda MD [address] [place] [address] PCP - General Family Medicine 10/26/21 Cam Oliveira Jr., MD Consulting Physician Endocrinology Diabetes & Metabolism 08/06/21 More Mars MD Consulting Physician Pediatric Cardiology 08/06/21 documented as of this encounter
--- OUTSIDE RECORDS SUMMARY | 2024-10-08 11:54 | XMS_ITS | Referral Summary ---
Author Organization [facility] Address [address] [place] [address] Care Team Providers Care Events Associate Name Role Phone Roxanne Meza MD, Cam Ballard Unavailable More Mars MD Unavailable Phoenix Colon MD Primary Care Provider [phone] Encounters Date Type Department Care Team Description 09/27/2024 Results Follow-Up [facility] Diabetes Endocrine Care at [address] [address] Tl Cruz DO GELY-65 autoantibody, ZINC TRANSPORTER 8 (ZnT8) ANTIBODY, Anti-islet cell antibody, Additional followed-up results: 2 09/13/2024 2:30 PM CDT Office Visit [facility] Diabetes Endocrine Care at [address] [address] Tl Cruz DO Type 2 diabetes mellitus with hyperglycemia, with long-term current use of insulin (HCC) (Primary Dx) 09/10/2024 Orders Only [facility] Cardiology [facility] Medical Office Building [address] [place] [address] More Mars MD 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); Prosthetic pulmonary valve insufficiency; Chronic systolic dysfunction of right ventricle; Status post pulmonary valve replacement with bioprosthetic valve; Elevated right ventricular end-diastolic pressure; Low cardiac output syndrome (HCC); S/P transcatheter replacement of pulmonary valve 09/05/2024 Orders Only [facility] Pediatric Cardiology [facility] [address] [place] [address] [place] [address] Melinda Benavides 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); Status post pulmonary valve replacement with bioprosthetic valve 09/05/2024 Orders Only [facility] Pediatric Cardiology [facility] 2[address] [place] [address] [place] [address] Maylin Orellana RN Chronic systolic dysfunction of right ventricle (Primary Dx); S/P transcatheter replacement of pulmonary valve 09/04/2024 Orders Only [facility] Pediatric Cardiology [facility] [address] [place] [address] [place] [address] Danica Guaman RN 08/29/2024 9:13 AM CDT - 08/30/2024 4:00 PM CDT Hospital Encounter [facility] [address] [place] [address] Austin Phan MD Orr, William Brinson, MD Pulmonary atresia with intact ventricular septum; Status post pulmonary valve replacement with bioprosthetic valve; Nonrheumatic pulmonary valve insufficiency; Chronic congestive heart failure with right ventricular diastolic dysfunction (HCC); Elevated right ventricular end-diastolic pressure Discharge Disposition: Discharge to home or self care 08/29/2024 12:05 PM CDT - 08/29/2024 4:10 PM CDT Surgery [facility] [place] [address] Austin Phan MD Pediatric Cardiac Catheterization 08/29/2024 12:18 PM CDT Anesthesia Event [facility] Pediatric [place] [address] Phoenix Fox MD Bowman, Tammy M., NP 08/22/2024 10:30 AM CDT - 08/22/2024 11:59 PM CDT Hospital Encounter [facility] Pediatric Cardiology [facility] [address] [place] [address] Atrial fibrillation and flutter (HCC) Discharge Disposition: Discharge to home or self care 08/22/2024 11:[place] [address] Atrial fibrillation and flutter (HCC); Adult congenital heart disease; Chronic systolic dysfunction of right ventricle; Elevated right ventricular end-diastolic pressure; Prosthetic pulmonary valve insufficiency; Pulmonary atresia with intact ventricular septum; Status post pulmonary valve replacement with bioprosthetic valve; Chronic anticoagulation on Xarelto 08/22/2024 9:25 AM CDT - 08/22/2024 11:59 PM CDT Hospital Encounter [facility] [place] [address] Atrial fibrillation and flutter (HCC); Adult congenital heart disease; Chronic systolic dysfunction of right ventricle; Elevated right ventricular end-diastolic pressure; Prosthetic pulmonary valve insufficiency; Pulmonary atresia with intact ventricular septum; Status post pulmonary valve replacement with bioprosthetic valve; Chronic anticoagulation on Xarelto Discharge Disposition: Discharge to home or self care 08/22/2024 1:30 PM CDT Pre-Admission Testing [facility] [place] [address] 08/22/2024 7:30 AM CDT Pre-Admission Testing [facility] [address] [place] [address] 08/21/2024 Telephone [facility] Pediatric [place] [address] Silvia Tanner NP 08/20/2024 Orders Only [facility] Pediatric Cardiology [facility] [address] [place] [address] [place] [address] Melinda Benavides Atrial fibrillation and flutter (HCC) (Primary Dx) 07/16/2024 Telephone [facility] Pediatric Cardiology [facility] [address] [place] [address] [place] [address] Maylin Orellana RN from Last 3 Months Allergies No known active allergies Medications glucagon (glucagon) 1 mg kit Use as directed for low blood sugar. 1 kit Active blood-glucose meter (OneTouch Verio Meter) [facility] 1 each 4 (four) times a day 1 each 1 Active blood glucose diagnostic (OneTouch Verio test strips) strip 200 each by other route as directed Use to measure blood glucose 4 times daily 200 each Active multivitamin capsuleIndications :Vitamin Deficiency Prevention Take 1 capsule by mouth every morning Active pen needle, diabetic (BD Ultra-Fine Jeannine Pen Needle) 32 gauge x 5/32 needleIndications: Type 2 diabetes mellitus with hypoglycemia without coma, with long-term current use of insulin (HCC),Type 2 diabetes mellitus without complication, without long-term current use of insulin (HCC) Use for insulin pens 369 each 3 Active T:Slim X2 Control-IQ [facility] USE DIRECTED 1 each 024 Active amoxicillin (AMOXIL) 500 mg tablet/capsuleIndi cations:Prophylaxi s, Medical,take 30 minutes prior to dental cleaning/procedure s Take 4 tablet/capsule (2000 mg) by mouth once 30 minutes prior to dental cleaning or procedure 1 tablet/cap blake 1 Active Xarelto 20 mg tablet TAKE 1 TABLET DAILY WITH DINNER 90 tablet 3 Active sotaloL (BETAPACE) 120 mg tablet TAKE 1 TABLET TWICE A DAY 180 tablet 1 Active atorvastatin (LIPITOR) 20 mg tabletIndications: Dyslipidemia TAKE 1 TABLET DAILY 90 tablet 3 Active spironolactone (ALDACTONE) 25 mg tabletIndications: Pulmonary atresia with intact ventricular septum TAKE 1 TABLET DAILY 90 tablet 3 Active Dexcom G7 Sensor device 1 Device continuously Change every 10 days. 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 Maximum total daily dose 70 units 70 mL 3 Active insulin glargine 100 unit/mL (3 mL) pen for injection Inject 30 Units under the skin daily as needed (use only in case of insulin pump failure) 3 mL 6 Active insulin detemir (LEVEMIR) 100 unit/mL (3 mL) pen for injectionIndicatio ns:Type 2 diabetes mellitus with hypoglycemia without coma, with long-term current use of insulin ([facility]),Type 2 diabetes mellitus without complication, without long-term current use of insulin ([facility]) Inject 20 Units under the skin daily 18 mL 3 023 2024 Discontinued insulin lispro (HumaLOG) 100 unit/mL vial for injectionIndicatio ns:Type 2 diabetes mellitus with hypoglycemia without coma, with long-term current use of insulin ([facility]) Use with insulin pump, TDD 50 units 50 mL 3 024 2024 Discontinued blood-glucose transmitter (Dexcom G6 Transmitter) deviceIndications: Type 2 diabetes mellitus with hypoglycemia without coma, with long-term current use of insulin ([facility]) Use as directed to check blood glucose; change every 90 days 1 each 1 024 2024 Discontinued insulin glargine 100 unit/mL (3 mL) pen for injection Inject 30 Units under the skin daily as needed (use only in case of insulin pump failure) 3 mL 6 025 2024 Discontinued(R eordmari) insulin lispro-aabc (LYUMJEV) 100 unit/mL vial for injection Use via insulin pump. Maximum total daily dose 70 units 45 mL 3 025 2024 Discontinued(R eorder) Active Problems Problem Noted Date Diagnosed Date S/P transcatheter replacement of pulmonary valve 08/29/2024 Lipoma of head 05/29/2024 Assessment & Plan (05/29/2024 10:27 AM CDT): Referring to general surgery at [facility] for excision. 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 Continue current medication. Acute idiopathic gout of multiple sites 04/28/19 Assessment & Plan (04/28/2023 4:49 PM TAR KETTLE RUNNER): Stable, well controlled; patient reports occasional flares; [...] 03/24/2022 Assessment & Plan (04/28/2023 4:49 PM TAR KETTLE RUNNER): Stable, well controlled; patient was not able to start CPAP; patient reports improved sleep quality; less daytime sleepiness; will continue to monitor Mood disorder 10/27/2021 Assessment & Plan (04/28/2023 4:49 PM TAR KETTLE RUNNER): Stable well controlled; no major issues; patient [...] flutter afterwards. >>OVERVIEW FOR ATRIAL FLUTTER (CMS/HCC) ([facility]) WRITTEN ON 10/19/2021 10:37 AM BY TIM VALENTE Added automatically from request for surgery [id number] Assessment & Plan (05/29/2024 10:27 AM CDT): Normal sinus rhythm today in office, continue sotalol prescribed by Dr. Carey. Uses Xarelto for anticoagulation. Assessment & Plan (05/19/2023 9:22 AM TAR KETTLE RUNNER): He is doing well on sotalol with limited AF recurrence in setting of COVID QT interval stable, QTc 487 ms Continue sotalol 120 mg BID BMP today Continue Xarelto for stroke risk reduction Assessment & Plan (04/28/2023 12:43 PM TAR KETTLE RUNNER): >>ASSESSMENT AND PLAN FOR ATRIAL FLUTTER (CMS/HCC) ([facility]) WRITTEN ON 11/22/2021 8:47 PM BY PHOENIX COLON MD Stable, s/p cardioversion, currently in NSR Assessment & Plan (04/28/2023 12:43 PM TAR KETTLE RUNNER): >>ASSESSMENT AND PLAN FOR ATRIAL FIBRILLATION (CMS/HCC) ([facility]) WRITTEN ON 10/27/2021 4:56 PM BY PHOENIX COLON MD EKG performed today; rate of 100, irregularly irregular, atrial fibrillation flutter Possible right bundle-branch block and right axis deviation QRS complex near Assessment & Plan (04/28/2023 12:43 PM TAR KETTLE RUNNER): >>ASSESSMENT AND PLAN FOR ATRIAL FIBRILLATION (CMS/HCC) ([facility]) WRITTEN ON 09/28/2022 1:29 PM BY PHOENIX COLON MD Stable, and regular rate and rhythm today; continue sotalol 120 mg b.i.d.; Xarelto 20 mg daily Assessment & Plan (04/28/2023 12:43 PM TAR KETTLE RUNNER): >>ASSESSMENT AND PLAN FOR ATRIAL FIBRILLATION (CMS/HCC) (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 Devon Sloan is a 43 y.o. 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 His previsit was 08/22/24 and he was in atrial fibrillation / flutter while here. He is on Tandem T Slim insulin pump with Control IQ , per last Endo note on May 2024 he is on basal 0.9 unit/hour, ICR 10, CF 40, tbg 110. Below is the protocol for DM management while on insulin pump in the hospital before the procedure and during sedation: Upon arrival for procedure: Check Blood Glucose (BG). Target is 100-250. Keep the pump in activity or exercise mode BG 100-250: Proceed with anesthesia. IV fluids should NOT contain dextrose unless running at a very slow rate. BG should be checked hourly. BG <100: Notify attending anesthesiologist: at their discretion, start IV with D5 at maintenance. Recheck BG in 10-20 minutes of initiating IV. Proceed with anesthesia if BG >80. Change to dextrose-free IV fluid if BG >200. Check BG hourly. BG >250: Check urine ketones. Urine Ketones negative to trace Notify attending anesthesiologist. And At their discretion, start IV with dextrose-free fluid, give 50% of usual correction dose of rapid-acting insulin subcutaneously. Proceed with anesthesia. Check BG every 30 minutes. If BG has not decreased within 60 minutes of giving insulin bolus, call endocrine service for insulin dose to be given by subcutaneous injection. Urine ketones small to moderate: Notify attending anesthesiologist. At their discretion, start IV with dextrose-free fluid. Consult with Endocrinology. Urine ketones large: POSTPONE PROCEDURE. Call Endocrinology DM management through pump after the operation: 1- continue on activity mode or exercise mode for the pump 2- Keep the pump after anaesthesia team agrees with keeping the pump too 3- follow the protocol below: BG 100-250:. IV fluids should NOT contain dextrose unless running at a very slow rate. BG should be checked hourly. BG <100: Notify attending anesthesiologist: at their discretion, start IV with D5 at maintenance. Recheck BG in 10-20 minutes of initiating IV. Change to dextrose-free IV fluid if BG >200. Check BG hourly. BG >250: Check urine ketones. Urine Ketones negative to trace Notify attending anesthesiologist. And At their discretion, start IV with dextrose-free fluid, give 50% of usual correction dose of rapid-acting insulin subcutaneously. Proceed with anesthesia. Check BG every 30 minutes. If BG has not decreased within 60 minutes of giving insulin bolus, call endocrine service for insulin dose to be given by subcutaneous injection. Cgm use : -patient is approved for using CGM unless: if patient is going for a MRI, CT, Electro-Cautery, and/or Diathermy procedures, the CGM sensor, transmitter, and armature and rotor winder must be removed prior to the procedure. -Enter POCT glucose, CGM order in [facility] -CGM glucose value can be used for dosing if value is 70 - 250 mg/dL. If outside these ranges a BG must be checked with POCT glucose before making treatment decisions. Postoperatively: 1-continue on activity mode or exercise mode for the pump until the patient is able to eat and tolerate baseline PO intake and there is no need for IVF 2- add dextrose fluid if patient doesn't tolerate po intake and glucose is < 100. If glucose is > 100, ok to keep normal saline without dextrose Diabetes Plan/Insulin Orders (out of DKA): pump will give basal rate at 0.9 unit/h Please give Humalog with the following doses at mealtimes: Dose to be administered: Before meals Blood glucose target - Daytime (mg/dL): 110 Blood glucose target - Bedtime and overnight (mg/dL): 110 Hyperglycemia correction factor - Daytime: 40 Hyperglycemia correction factor - Bedtime and overnight: 0 Day Dose: 4 Carb ratio - Breakfast (gm/unit): 10 Carb ratio - Lunch (gm/unit): 10 Carb ratio - Dinner (gm/unit): 10 Carb ratio - Bedtime/Snack (gm/unit): 10 Check blood glucose 5 times daily (breakfast, lunch, dinner, bedtime, 0200) unless otherwise indicated or for sick day management Check POC urine or POC blood ketones if BG>300 mg/dL or if sick symptoms (fever, vomiting). If ketones present, follow sick day management plan below. NPO Guidance: -If patient made NPO, contact endocrinology and consider increased frequency of glucose monitoring (BG every 4 hours). And change insulin plan to check and correct using CF of 50 (day and night, so you will need to update the overnight correction factor on epic order) every 4 hours while NPO Assessment & Plan (05/29/2024 10:26 AM CDT): [...] diabetes. Assessment & Plan (04/28/2023 4:48 PM TAR KETTLE RUNNER): Not well controlled; last A1c elevated at [...] 05/29/2024 Assessment & Plan (04/13/2024 10:15 AM TAR KETTLE RUNNER): Acute nodule in nostril with some surrounding [...] Refused),01/03/2022,11/12/2021(Deferre d: Patient Refused),10/26/2021(Deferred: Not available from zoology professor),12/12/2020(Deferred: Patient Refused) Social History Tobacco Use Types [...] week 09/28/2022 How often do you attend [facility] or nondenominational services? Never 09/28/2022 Do you belong to [...] staff should administer the PHQ-9) 0 05/29/2024 [facility] - Occupational Stress Questionnaire Answer Date Recorded [...] place to sleep or slept in a long-term (including now)? No 09/28/2022 PHQ-9 Answer Date [...] Sign Reading Time Taken Comments Blood Pressure 112/78 09/13/2024 2:01 PM CDT Pulse 96 09/13/2024 2:01 PM CDT Temperature 36.3 C (97.3 F) 08/30/2024 9:00 AM CDT Respiratory Rate 20 08/30/2024 9:00 AM CDT Oxygen Saturation 95% 08/30/2024 9:00 AM CDT Inhaled Oxygen Concentration - - Weight 75.3 kg (166 lb) 09/13/2024 2:01 PM CDT Height 167.6 cm (5' 5.98) 09/13/2024 2:01 PM CD T Body Mass Index 26.81 09/13/2024 2:01 PM CDT Plan of Treatment Not on file Medical Devices Implanted Type Area Physical Security Engineer Device Identifier Shelf Expiration Date Model / Serial / Lot Mesh Mesh Abdomen Shunt Implanted:Qty: 2 Shunt Arterial Stent Implanted:Qty: 1 Stent Coronary Artery [employer] Closure Repair Femoral Artery Suture Mediated Perclose Prostyle 77592-19 - [id number] Implanted:Qty: 1 on 08/29/2024 by Austin Phan MD at [facility] [employer] 06/11/2026 [id number] / / [id number] [employer] Closure Repair Femoral Artery Suture Mediated Perclose Prostyle 54654-55 - [id number] Implanted:Qty: 1 on 08/29/2024 by Austin Phan MD at [facility] [employer] 07/11/2026 [id number] / / [id number] [employer] Nadege 3 29mm Transcatheter Aortic Valve [id number] - [id number] - [id number] Implanted:Qty: 1 on 08/29/2024 by Austin Phan MD at [facility] [employer] 05/03/2026 [id number] / [id number] / Access Closure Inc Device 10ml 5fr Closure Mynx Control 2 Mode Balloon Catheter [id number] - [id number] Implanted:Qty: 1 on 08/29/2024 by Austin Phan MD at [facility] [employer] 06/25/2026 [id number] / / [id number] Procedures Procedure Name Priority Date/Time Associated Diagnosis Comments GLUCOSE, FASTING Routine 09/19/2024 11:54 AM CDT ANTI-ISLET CELL ANTIBODY Routine 09/19/2024 11:54 AM CDT Type 2 diabetes mellitus with hyperglycemia, with long-term current use of insulin ([facility]) ZINC TRANSPORTER 8 (ZNT8) ANTIBODY Routine 09/19/2024 11:54 AM CDT Type 2 diabetes mellitus with hyperglycemia, with long-term current use of insulin ([facility]) GELY-65 AUTOANTIBODY Routine 09/19/2024 11:54 AM CDT Type 2 diabetes mellitus with hyperglycemia, with long-term current use of insulin ([facility]) INSULIN AUTOANTIBODY Routine 09/19/2024 11:54 AM CDT Type 2 diabetes mellitus with hyperglycemia, with long-term current use of insulin ([facility]) POCT HEMOGLOBIN A1C Routine 09/13/2024 2 :21 PM CDT Type 2 diabetes mellitus with hyperglycemia, with long-term current use of insulin (HCC) XR CHEST PA LATERAL 2 VIEWS IP Routine 08/30/2024 8:11 AM CDT US LIVER W ELASTOGRAPHY (C) IP Routine 08/30/2024 8:01 AM CDT PEDIATRIC CONGENITAL ECHO (TTE) COMPLETE W DOPPLER/CF Routine 08/30/2024 7:25 AM CDT ECG 12-LEAD Routine 08/30/2024 6:56 AM CDT ECG 12-LEAD Routine 08/29/2024 4:04 PM CDT Atrial fibrillation and flutter (HCC) POCT GLUCOSE DEVICE Routine 08/29/2024 3 :33 PM CDT PEDIATRIC CARDIAC CATHETERIZATION (DEF ORD) Routine 08/29/2024 2:48 PM CDT Pulmonary atresia with intact ventricular septum Status post pulmonary valve replacement with bioprosthetic valve Nonrheumatic pulmonary valve insufficiency Chronic congestive heart failure with right ventricular diastolic dysfunction (HCC) Elevated right ventricular end-diastolic pressure POCT ACTIVATED CLOTTING TIME, LOW RANGE Routine 08/29/2024 2:44 PM CDT POCT ACTIVATED CLOTTING TIME, LOW RANGE Routine 08/29/2024 1:57 PM CDT POCT BLOOD GAS-HGB SAT, CATH Routine 08/29/2024 1:47 PM CDT POCT BLOOD GAS-HGB SAT, CATH Routine 08/29/2024 1:45 PM CDT POCT BLOOD GAS-HGB SAT, CATH Routine 08/29/2024 1:41 PM CDT POCT BLOOD GAS-HGB SAT, CATH Routine 08/29/2024 1:40 PM CDT PEDIATRIC LYUDMILA TRANSESOPHAGEAL ECHO (ZAK) W LTD DOPPLER/CF Routine 08/29/2024 1:12 PM CDT CO AN PROCEDURE PLACEHOLDER Routine 08/29/2024 12:41 PM CDT CO AN ELECTIVE ENDOTRACHEAL AIRWAY Routine 08/29/2024 12:41 PM CDT ECG 12-LEAD Routine 08/29/2024 10:36 AM CDT B ABO / RH CONFIRMATION TESTING Routine 08/29/2024 9:59 AM CDT CBC WITHOUT DIFFERENTIAL STAT 08/29/2024 9:59 AM CDT PREPARE RBC Timed 08/29/2024 9:26 AM CDT CROSSMATCH Routine 08/22/2024 11:55 AM CDT Atrial fibrillation and flutter (HCC) Adult congenital heart disease Chronic systolic dysfunction of right ventricle Elevated right ventricular end-diastolic pressure 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 Status post pulmonary valve replacement with bioprosthetic valve Chronic anticoagulation on Xarelto EGFR Routine 08/22/2024 11:55 AM CDT Atrial fibrillation and flutter (HCC) Adult congenital heart disease Chronic systolic dysfunction of right ventricle Elevated right ventricular end-diastolic pressure 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 Status post pulmonary valve replacement with bioprosthetic valve Chronic anticoagulation on Xarelto ANTIBODY SCREEN Routine 08/22/2024 11:55 AM CDT Atrial fibrillation and flutter (HCC) Adult congenital heart disease Chronic systolic dysfunction of right ventricle Elevated right ventricular end-diastolic pressure 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 Status post pulmonary valve replacement with bioprosthetic valve Chronic anticoagulation on Xarelto ABO/RH Routine 08/22/2024 11:55 AM CDT Atrial fibrillation and flutter (HCC) Adult congenital heart disease Chronic systolic dysfunction of right ventricle Elevated right ventricular end-diastolic pressure 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 Status post pulmonary valve replacement with bioprosthetic valve Chronic anticoagulation on Xarelto TYPE AND SCREEN Routine 08/22/2024 11:55 AM CDT Atrial fibrillation and flutter (HCC) Adult congenital heart disease Chronic systolic dysfunction of right ventricle Elevated right ventricular end-diastolic pressure 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 Status post pulmonary valve replacement with bioprosthetic valve Chronic anticoagulation on Xarelto TSH Routine 08/22/2024 11:55 AM CDT Atrial fibrillation and flutter (HCC) Adult congenital heart disease Chronic systolic dysfunction of right ventricle Elevated right ventricular end-diastolic pressure 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 Status post pulmonary valve replacement with bioprosthetic valve Chronic anticoagulation on Xarelto T4, FREE Routine 08/22/2024 11:55 AM CDT Atrial fibrillation and flutter (HCC) Adult congenital heart disease Chronic systolic dysfunction of right ventricle Elevated right ventricular end-diastolic pressure 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 Status post pulmonary valve replacement with bioprosthetic valve Chronic anticoagulation on Xarelto BASIC METABOLIC PANEL Routine 08/22/2024 11:55 AM CDT Atrial fibrillation and flutter (HCC) Adult congenital heart disease Chronic systolic dysfunction of right ventricle Elevated right ventricular end-diastolic pressure 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 Status post pulmonary valve replacement with bioprosthetic valve Chronic anticoagulation on Xarelto XR CHEST PA LATERAL 2 VIEWS Schedule Routine, Read Routine (OP Routine) 08/22/2024 9:29 AM CDT Atrial fibrillation and flutter (HCC) Adult congenital heart disease Chronic systolic dysfunction of right ventricle Elevated right ventricular end-diastolic pressure 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 Status post pulmonary valve replacement with bioprosthetic valve Chronic anticoagulation on Xarelto HEPATITIS C ANTIBODY Routine 06/01/2024 8:58 AM CDT Encounter for hepatitis C screening test for low risk patient LIPID PANEL Routine 06/01/2024 8:58 AM CDT Type 2 diabetes mellitus with hypoglycemia without coma, with long-term current use of insulin (HCC) Screening for hyperlipidemia ALBUMIN CREATININE RATIO, URINE Routine 06/01/2024 8:58 AM CDT Type 2 diabetes mellitus with hypoglycemia without coma, with long-term current use of insulin (HCC) DIABETES EYE EXAM Routine 03/26/2024 from Last 3 Months or Most Recently Relevant to Health Maintenance Results * ZINC TRANSPORTER 8 (ZnT8) ANTIBODY (09/19/2024 11:54 AM CDT) Zinc Transporter 8 (Znt8) Antibody <10 <15 U/mL [facility], Comment: For additional information, please refer to http://education.WriteLatex/faq/VRJ984 (This link is being provided for information/educational purposes only.) Blood 09/19/2024 11:5 4 AM CDT 09/19/2024 11:55 AM CDT Narrative [facility] - 09/26/2024 6:27 PM CDT FASTING:YES FASTING: YES Tl Cruz DO LAB BLOOD ORDERABLES Final Result [facility], [address] [place] [address] * (ABNORMAL) INSULIN AUTOANTIBODY Blood (09/19/2024 11:54 AM CDT) Insulin ab >50.0(H) <0.4 U/mL [facility] [facility], Blood 09/19/2024 11:5 4 AM CDT 09/19/2024 11:55 AM CDT Narrative [facility] - 09/26/2024 6:27 PM CDT FASTING:YES FASTING: YES Tl Cruz DO LAB MICROBIOLOGY - GENERAL ORDERABLES Final Result [facility] [facility], [address] [place] [address] * GEYL-65 autoantibody (09/19/2024 11:54 AM CDT) Glutamic acid decarboxylase 65, ab <5 <5 IU/mL [facility] Comment: This test was performed using the GAD65 KELLY method, which is standardized against the International reference preparation 97/550. Blood 09/19/2024 11:5 4 AM CDT 09/19/2024 11:55 AM CDT Narrative [facility] - 09/26/2024 6:27 PM CDT FASTING:YES FASTING: YES Tl Cruz DO LAB BLOOD ORDERABLES Final Result Performing Organization Address City/[facility] Co de Phone Number [facility] [address] [facility] [place] [address] * Anti-islet cell antibody (09/19/2024 11:54 AM CDT) Islet cell ab NEGATIVE NEGATIVE [facility] [employer] [facility], Comment: This test was developed and its analytical performance characteristics have been determined by [facility]. It has not been cleared or approved by the FDA. This assay has been validated pursuant to the CLIA regulations and is used for clinical purposes. Blood 09/19/2024 11:5 4 AM CDT 09/19/2024 11:55 AM CDT Narrative [facility] - 09/26/2024 6:27 PM CDT FASTING:YES FASTING: YES Tl Cruz DO LAB BLOOD ORDERABLES Final Result Performing Organization Address City/[facility]/ZIP Co de Phone Number [employer] [facility], [address] [place] [address] * (ABNORMAL) Glucose, fasting (09/19/2024 11:54 AM CDT) Glucose 104(H) 65 - 99 mg/dL [facility] Comment: Fasting reference interval For someone without known diabetes, a glucose value between 100 and 125 mg/dL is consistent with prediabetes and should be confirmed with a follow-up test. 09/19/2024 11:5 4 AM CDT 09/19/2024 11:55 AM CDT Narrative [facility] - 09/26/2024 6:27 PM CDT FASTING:YES FASTING: YES Dakshaor Loyd Cruz DO LAB BLOOD ORDERABLES Final Result [facility] [address] [place] [address] * (ABNORMAL) POCT hemoglobin A1c (09/13/2024 2:21 PM CDT) Hemoglobin A1C, POC 10.5(A) 4.0 - 5.6 % Blood 09/13/2024 2:21 PM CDT Dakshaor Loyd Cruz DO POINT OF CARE TEST ORDERABL ES Final Result * XR Chest PA Lateral 2 Views (08/30/2024 8:11 AM CDT) Anatomical Region Laterality Modality Body, Chest N/A Computed Radiogr aphy 08/30/2024 10:5 3 AM CDT Impressions 08/30/2024 11:05 AM CDT Comparison is made to chest radiograph dated 08/22/2024. Median sternotomy wires are aligned and intact. Postsurgical changes following transcatheter pulmonic valve replacement. Cardiac silhouette is enlarged but unchanged. No pleural effusion or pneumothorax. Dictated by: Mariaelena Light MD, PhD The radiology attending physician has personally reviewed this study, and had reviewed and/or edited this written report and agrees with it. Electronically signed by: Parul Serna M.D. Narrative 08/30/2024 11:05 AM CDT EXAMINATION: XR CHEST PA LATERAL 2 VIEWS HISTORY: 43-year-old status post transcatheter placement of pulmonary valve on 08/29/2024 Procedure Note Parul Huizar MD - 08/30/2024 EXAMINATION: XR CHEST PA LATERAL 2 VIEWS HISTORY: 43-year-old status post transcatheter placement of pulmonary valve on 08/29/2024 IMPRESSION: Comparison is made to chest radiograph dated 08/22/2024. Median sternotomy wires are aligned and intact. Postsurgical changes following transcatheter pulmonic valve replacement. Cardiac silhouette is enlarged but unchanged. No pleural effusion or pneumothorax. Dictated by: Mariaelena Light MD, PhD The radiology attending physician has personally reviewed this study, and had reviewed and/or edited this written report and agrees with it. Electronically signed by: Parul Serna M.D. us Silvia Tanner [employer] IMG XR PROCEDURES Final Resul t * US Liver W Elastography (C) (08/30/2024 8:01 AM CDT) Anatomical Region Laterality Modality Abdomen N/A Ultrasound 08/30/2024 9:42 AM CDT Impressions 08/30/2024 11:58 AM CDT 1. Nnormal right upper quadrant ultrasound. 2. Median liver shear wave speed = 1.89 m/s. This measurement is in the range of moderate-severe fibrosis. Dictated by: Torsten Suarez M.D. The radiology attending physician has personally reviewed this study, and had reviewed and/or edited this written report and agrees with it. Electronically signed by: Marybeth Nix M.D. Narrative 08/30/2024 11:58 AM CDT EXAMINATION: US LIVER W ELASTOGRAPHY (C) INDICATION(S)/HISTORY: Complex congenital heart disease. Evaluate for cirrhosis. Patient age: 43 years Patient sex: Male COMPARISON: Abdomen MRI 11/08/2018 FINDINGS: The liver is normal in echotexture and echogenicity No discrete hepatic mass or intrahepatic biliary dilatation is seen. No thrombus is seen in the imaged portal or hepatic veins. No ascites is present. Hepatic veins and inferior vena cava are dilated. The gallbladder is normal. The common bile duct measures 3 mm, which is within normal limits. The visible portions of the aorta are normal. Seven shear wave speed measurements were acquired using a right intercostal approach, with a median of 1.89 m/s (range, 1.72-2.01 m/s). The IQR/median value is 7.3%. Measurements were obtained using the C1-6 transducer. Procedure Note Marybeth Nix MD - 08/30/2024 EXAMINATION: US LIVER W ELASTOGRAPHY (C) INDICATION(S)/HISTORY: Complex congenital heart disease. Evaluate for cirrhosis. Patient age: 43 years Patient sex: Male COMPARISON: Abdomen MRI 11/08/2018 FINDINGS: The liver is normal in echotexture and echogenicity No discrete hepatic mass or intrahepatic biliary dilatation is seen. No thrombus is seen in the imaged portal or hepatic veins. No ascites is present. Hepatic veins and inferior vena cava are dilated. The gallbladder is normal. The common bile duct measures 3 mm, which is within normal limits. The visible portions of the aorta are normal. Seven shear wave speed measurements were acquired using a right intercostal approach, with a median of 1.89 m/s (range, 1.72-2.01 m/s). The IQR/median value is 7.3%. Measurements were obtained using the C1-6 transducer. IMPRESSION: 1. Nnormal right upper quadrant ultrasound. 2. Median liver shear wave speed = 1.89 m/s. This measurement is in the range of moderate-severe fibrosis. Dictated by: Torsten Suarez M.D. The radiology attending physician has personally reviewed this study, and had reviewed and/or edited this written report and agrees with it. Electronically signed by: Marybeth Nix M.D. us Kassandra Worley NP IMG US PROCEDURES Final Res ult * PEDIATRIC CONGENITAL ECHO (TTE) COMPLETE W DOPPLER/CF (08/30/2024 7:25 AM CDT) Anatomical Region Laterality Modality Ultrasound 08/30/2024 6:51 AM CDT Narrative 08/30/2024 10:04 AM CDT [facility] Quantitative Echo Report [facility] [address], [place] [address] Patient Name: DEVON SLOAN Study Type: Pediatric Echo Patient : 1980 Exam Date: 08/30/2024 Age: 43Y Exam Time: 6:51:00 AM Referring MD: DRAKE LUND Height: 168cm Weight: 75.6kg BSA: 1.85 m2 Sex: MALE BP: 114/77 Director Of Curriculum: Ghazala Roe. Stat.: Inpatient Room: [place] [address] Account:[id number] Indications for Study:Transcatheter placement of pulmonary valve on 08/29/2024, PULMONARY ATRESIA. 747.3 Procedures: PEDIATRIC ECHOCARDIOGRAM,PEDIATRIC DOPPLER,COLORFLOW SUMMARY: Pulmonary atresia/intact septum s/p biventricular repair. s/p 25mm Inspiris bioprosthetic valve (02/23/2019). s/p 29 mm Nadege 3 valve (08/29/24) Very poor acoustic windows. Left atrium with no obvious clot seen. Appendage unable to be visualized. Severely dilated RA. No obvious clot, though very difficult to visualize. Trivial tricuspid regurgitation. Estimated RVSP 8 mmHg + RAP (likely very elevated). Pulmonary bifurcation visualized. Very limited flow noted. Qualitatively normal LV systolic function. RV is bipartite with limited apical portion and dilated basal portion. Qualitatively moderately decreased systolic function. Moderate to severe aortic ectasia. Compared to ZAK, less spontaneous contrast in RA. Otherwise no change. Atria: Solitus. Right Atrial Size: Dilated. Left Atrial Size: Normal. Atrial Septum: Not well visualized. Defect Size: Cannot evaluate. Shunt: Cannot evaluate. Ventricles: D-looped. Left: Size/Structure: Normal. Function: Normal. Right: Size/Structure: Bipartite, no apex, dilated base. Function: Normal. Ventricular Septum: Structure: Normal Motion: Normal. Defect Type/Size: None./None. Shunt: None. Great Vessels: Normally related Aortic Arch: Sidedness: Not profiled. Branching: Not profiled Aortic Root: Normal. Coarctation: No Coronary Arteries: NOT VIEWED. Pulmonary Arteries: Main: Normal. Left: Normal. Right: Normal. Patent Ductus Arteriosus: No. Shunt: None. Superior Vena Cava: NOT VIEWED. Inferior Vena Cava: NOT VIEWED. Pulmonary Veins: NOT VIEWED. Pericardium: Normal Mitral Valve: Structure: Normal. Stenosis: No. Regurgitation: No. Tricuspid Valve: Structure: Normal. Stenosis: No. Regurgitation: Trivial. Est. RVp (mmHg) + RAp Pulmonary Valve: Structure: s/p Nadege valve. Stenosis: No. Regurgitation: No. Aortic Valve: Structure: Normal. Stenosis: No. Regurgitation: No. FINDINGS: MEASUREMENTS: 2D AO Ao An 2.47 cm (zsc 1.7) Ao Stj 3.52 cm (zsc 3.6)* Ao Rtd 3.71 cm (zsc 3)* Ao Asc 3.73 cm (zsc 4.6)* Signed 08/30/2024 10:04 AM Rashel Eddy MD Procedure Note Rashel Eddy MD - 08/30/2024 [facility] Quantitative Echo Report [address] [address] Patient Name: DEVON SLOAN Study Type: Pediatric Echo Patient : 1980 Exam Date: 08/30/2024 Age: 43Y Exam Time: 6:51:00 AM Referring MD: DRAKE LUND Height: 168cm Weight: 75.6kg BSA: 1.85 m2 Sex: MALE BP: 114/77 Director Of Curriculum: Ghazala Sabillon Pat. Stat.: Inpatient Room: 7421 Account:[id number] Indications for Study:Transcatheter placement of pulmonary valve on 08/29/2024, PULMONARY ATRESIA. 747.3 Procedures: PEDIATRIC ECHOCARDIOGRAM,PEDIATRIC DOPPLER,COLORFLOW SUMMARY: Pulmonary atresia/intact septum s/p biventricular repair. s/p 25mm Inspiris bioprosthetic valve (02/23/2019). s/p 29 mm Nadege 3 valve (08/29/24) Very poor acoustic windows. Left atrium with no obvious clot seen. Appendage unable to be visualized. Severely dilated RA. No obvious clot, though very difficult to visualize. Trivial tricuspid regurgitation. Estimated RVSP 8 mmHg + RAP (likely very elevated). Pulmonary bifurcation visualized. Very limited flow noted. Qualitatively normal LV systolic function. RV is bipartite with limited apical portion and dilated basal portion. Qualitatively moderately decreased systolic function. Moderate to severe aortic ectasia. Compared to ZAK, less spontaneous contrast in RA. Otherwise no change. Atria: Solitus. Right Atrial Size: Dilated. Left Atrial Size: Normal. Atrial Septum: Not well visualized. Defect Size: Cannot evaluate. Shunt: Cannot evaluate. Ventricles: D-looped. Left: Size/Structure: Normal. Function: Normal. Right: Size/Structure: Bipartite, no apex, dilated base. Function: Normal. Ventricular Septum: Structure: Normal Motion: Normal. Defect Type/Size: None./None. Shunt: None. Great Vessels: Normally related Aortic Arch: Sidedness: Not profiled. Branching: Not profiled Aortic Root: Normal. Coarctation: No Coronary Arteries: NOT VIEWED. Pulmonary Arteries: Main: Normal. Left: Normal. Right: Normal. Patent Ductus Arteriosus: No. Shunt: None. Superior Vena Cava: NOT VIEWED. Inferior Vena Cava: NOT VIEWED. Pulmonary Veins: NOT VIEWED. Pericardium: Normal Mitral Valve: Structure: Normal. Stenosis: No. Regurgitation: No. Tricuspid Valve: Structure: Normal. Stenosis: No. Regurgitation: Trivial. Est. RVp (mmHg) + RAp Pulmonary Valve: Structure: s/p Nadege valve. Stenosis: No. Regurgitation: No. Aortic Valve: Structure: Normal. Stenosis: No. Regurgitation: No. FINDINGS: MEASUREMENTS: 2D AO Ao An 2.47 cm (zsc 1.7) Ao Stj 3.52 cm (zsc 3.6)* Ao Rtd 3.71 cm (zsc 3)* Ao Asc 3.73 cm (zsc 4.6)* Signed 08/30/2024 10:04 AM Rashel Eddy MD us Silvia Tanner NP CV ECHO PROCEDURES Final Resu lt * ECG 12 lead (08/30/2024 6:56 AM CDT) Ventricular Rate EKG/Min 77 BPM [facility] Atrial Rate 77 BPM [facility] CO-Interval (MSEC) 222 ms [facility] QRS-Interval (MSEC) 146 ms [facility] QT-Interval (MSEC) 484 ms [facility] QTc 547 ms [facility] P [place] 67 degrees [facility] R [place] 151 degrees [facility] T [place] 76 degrees [facility] Diagnosis Sinus rhythm with 1st degree A-V block with Premature atrial complexes Biatrial enlargement Right axis deviation ST & T wave abnormality, Left posterior fascicular block When compared with ECG of 29-AUG-2024 10:36, Significant changes have occurred Confirmed by fellow Shanel Hall do ([id number]) on 08/30/2024 9:55:39 AM I have personally reviewed the study and I agree with the above findings Confirmed by Reyes Steele ([id number]) on 08/30/2024 9:57:31 AM [facility] 08/30/2024 6:56 AM CDT 08/30/2024 9:57 AM CDT us Silvia Tanner NP ECG ORDERABLES Final Result [facility] * ECG 12 lead (08/29/2024 4:04 PM CDT) Ventricular Rate EKG/Min 233 BPM [facility] Atrial Rate 241 BPM [facility] QRS-Interval (MSEC) 76 ms [facility] QT-Interval (MSEC) 184 ms [facility] QTc 362 ms [facility] R [place] 48 degrees [facility] T [place] -69 degrees [facility] Diagnosis Atrial flutter with variable conduction Low voltage QRS Abnormal ECG When compared with ECG of 20-JUN-2024 14:11, patient is no longer in sinus rhythm Confirmed by LEORA MOILNA M.D. ([id number]) on 08/22/2024 1:57:48 PM Also confirmed by LEORA MOLINA M.D. ([id number]), subeditor Vee Valverde ([id number]) on 08/27/2024 8:06:18 AM [facility] 08/22/2024 10:1 1 AM CDT 08/27/2024 8:06 AM CDT us Silvia Tanner NP ECG ORDERABLES Edited Result - Final [facility] * POCT glucose (08/29/2024 3:33 PM CDT) Glucose, POC 175 70 - 199 mg/dL Blood 08/29/2024 3:33 PM CDT 08/29/2024 3:33 PM CDT us Austin Phan MD LAB POCT ORDERABLES - DEVICE Final Result [facility] Department [place] [address] * PEDIATRIC CARDIAC CATHETERIZATION (08/29/2024 2:48 PM CDT) Anatomical Region Laterality Modality X-Ray Angiograph y 08/29/2024 12:0 0 PM CDT Narrative 08/29/2024 4:15 PM CDT Pediatric Catheterization Patient Name: DEVON SLOAN Study Type: Cath XA Patient : 1980 Exam Date: 08/29/2024 Age: 43Y Exam Time: 12:00:00 PM Referring MD: DULCE MARIA ARTHUR Height: 168cm Weight: 75.6kg BSA: 1.85 m2 Sex: MALE Account:[id number] CATH PROCEDURE: Procedure Description: Fluoro Time: 18.60 mins CINE Dose: 4266.40 cGycm2 Total Dose: 4266.40 cGycm2 Interv. Fluoro Time: 18.60 mins Medications Administered: Heparin, 6000 units, IV. Anticoagulant Heparin, 2000 units, IV. Anticoagulant Ropivacaine 0.2%, 7 ml, Subcut. Local Anesthetic CATH PRE-PROCEDURE: Pre-Procedure Pulses Bilateral PT: Right: Weak, Left: Weak HEMODYNAMICS: Pressures - Baseline (mmHg) Sys/A Colon/V Mn/EDP RA 30 28 28 RV 35 27 LPA 33 21 26 LPCW 20 LV 82 18 AOAsc 84 60 70 AODsc 83 58 68 Oximetry - Baseline (%, mmHg) Sat PaO2 SVC 54 MPA 46 LPA 48 AODsc 88 Shunts & Resistances - Baseline Rp 2.82 (BEARDEN) Rp I 5.21 (BEARDEN) Rs 19.25 (BEARDEN) Rs I 35.61 (BEARDEN) Rp/Rs 0.15 Cardiac Output - Baseline Hgb 17.6 g/dL VO2 209 ml/min VO2 I 112.74 ml/min/m Qp 2.13 l/min Qp I 1.15 l/min/m Qs 2.13 l/min Qs I 1.15 l/min/m Qp/Qs 1 Qep 2.13 l/min Qep I 1.15 l/min/m CAo2 88 % used in calc CVo2 47 % used in calc PVo2 88 % used in calc PAo2 47 % used in calc Pressures - Post-Intervention (mmHg) Sys/A Colon/V Mn/EDP RA 27 28 26 RV 32 25 MPA 34 23 28 LPA 27 25 27 LPCW 20 AODsc 98 66 79 FINDINGS: SUMMARY: HISTORY: DEVON SLOAN is a 43 yr old male with PA/IVS s/p biventricular repair. He has a surgically implanted bioprosthetic valve (25 mm Inspiris valve) in the pulmonary position. He has significant PI and presents for Nadege valve implantation. He is also known to be in atrial fib/flutter and will have a ZAK and cardioversion if no thrombi are identified. PROCEDURE: After a full discussion of the risks and benefits of the procedure, reviewing the consent form with the patient, and answering all questions, Devon was brought to the cardiac catheterization laboratory and placed supine on the catheterization table. A timeout was performed to verify correct identification and procedure to be performed. The patient was intubated and general anesthesia was provided throughout the case by the pediatric anesthesia team (please see the anesthesia record for medications and doses). Initially a ZAK was performed which demonstrated a very large RA with spontaneous contrast in the atrium but no definite thrombus. The left heart also appeared to be free of thrombus. Therefore he underwent cardioversion with 75 joules with resumption of sinus rhythm. The patient was then prepped and draped in the usual sterile fashion. The left femoral vein was accessed using the Seldinger technique under ultrasound guidance and a 7F Vietnamese sheath was placed. Likewise the LFA was accessed and a 4 fr sheath was placed. He previously had right femoral bypass. Ultrasound guidance, with documentation of vessel patency, realtime visualization of vascular needle entry, and permanent image recording, was utilized for all vascular access. 6000 units of heparin were given to maintain the ACT >220s. Two perclose sutures were placed into the left femoral venous access site. At the beginning of the case, a Holder catheter was advanced into the IVC and an injection was performed to assess for any filling defects in the RA. There were no clots identified so we proceeded with the catheterization. Right and left heart baseline oximetry and hemodynamics were obtained. The endhole catheter was advanced into the distal left lower pulmonary artery. A 0.035 in Lunderquist wire was then advanced into the left lower pulmonary artery and the catheter was removed. The left femoral venous sheath was then upsized to a 26 Vietnamese DrySeal sheath. During placement of the DrySeal sheath 1 of the Perclose sutures was inadvertently cut. A multi tract catheter was then advanced into the ventricle and an angiogram was obtained. This demonstrated somewhat hypoplastic right ventricle with a very dilated right atrium. Following angiography we proceeded with balloon expansion of the existing bioprosthetic valve. A 26-4 atlas gold balloon was advanced over the wire and positioned across the valve. The [place] gold balloon was inflated to 12 atmospheres and the existing valve frame expanded. The [place] balloon was then removed and replaced with a 28 -4 true balloon which was advanced into the bioprosthetic valve. The balloon was inflated to 6 atmospheres and a simultaneous aortic angiogram was obtained. This demonstrated no evidence of any coronary compression. We therefore elected to proceed with valve placement. A 29 mm Nadege 3 valve was selected and mounted on a Commander delivery system per the IFU. The dilator for the DrySeal sheath was advanced through the DrySeal sheath and attempts were made to advance the DrySeal sheath across the existing valve. We were able to get the tip of the sheath just within the bioprosthetic valve. The dilator was then removed and the Commander delivery system was advanced through the DrySeal sheath and using flexion on the Commander system we were able to advance it across the bioprosthetic valve. The pusher was then retracted from the balloon and the DrySeal sheath was retracted as well. Once the Nadege valve was in good position the balloon was expanded and the stent was deployed. The delivery system was then removed and a Holder catheter was then advanced into the main pulmonary artery for a final angiogram. Following the angiogram, the 7 fr end hole catheter was advanced into the LPA for final pullback hemodynamics. Ropivacaine was given around the access sites. The left femoral arterial sheath was upsized to a 5 Vietnamese prelude sheath and a Mynx vascular closure system was deployed in the arterial access site. A [id number] stitch was placed around the venous access site since 1 of the Perclose sutures had been inadvertently cut as mentioned previously. The remaining Perclose suture was tightened and as the sheath and wire removed the [id number] suture was also tightened. This achieved hemostasis. This concluded the procedure. There were no complications noted. ANGIOGRAPHY: Attending physician: Austin Phan MD, angiographic imaging interpretation. 1. A Holder catheter is positioned in the inferior vena cava at the level of the diaphragm. Injection demonstrates a very enlarged inferior vena cava and right atrium. Contrast is seen swirling within the right atrium. No filling defects to suggest thrombi are identified. 2. A guidewire has been advanced antegrade through the right heart and a multi tract catheter is advanced over the wire. Injection is performed in the right ventricle. The holes of the balloon appeared to straddle the tricuspid valve. The right ventricle is somewhat hypoplastic and has an abnormal morphology with a truncated apex. A bioprosthetic valve is noted in the pulmonary position. 3. A fluoro saved image is obtained as a 26-4 atlas gold balloon is inflated within the bioprosthetic valve. With the initial inflation there is a narrowing in the midportion of the balloon which resolves with further expansion of the balloon as well as expansion of the valve. 4. A 28-4 true balloon is now inflated within the bioprosthetic valve. A simultaneous aortogram is performed. This demonstrates a left aortic arch. There is no aortic root compression in the coronary arteries do not appear to have any compression. 5. A 29 mm Nadege valve has been advanced into the bioprosthetic valve and the balloon was inflated to deploy the valve. With full inflation of the balloon the valve is well placed within the existing bioprosthetic valve. 6. The delivery system has been removed and replaced with a Holder catheter which advanced into the main pulmonary artery. With the injection we see a competent pulmonary valve with only trivial pulmonary regurgitation which appears to be catheter related. The proximal branch pulmonary arteries are seen to fill well with no stenosis. IMPRESSION: 1. 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 Status post placement of a 25 mm Inspiris bioprosthetic pulmonary valve. Now with severe pulmonary insufficiency. 2. Atrial fib/flutter secondary to markedly dilated right atrium. ZAK documented no thrombus and therefore the patient underwent cardioversion with 75 joules with sabianist of normal sinus rhythm 3. Low cardiac index of 1.15 liters/minute per meter squared with mean right atrial pressure of 28 mmHg. 4. Status post dilation of bioprosthetic valve with 26-4 atlas gold balloon and 28-4 true balloon 5. Status post implantation of 29 mm Nadege 3 valve within the bioprosthetic valve. 6. No pulmonary insufficiency or significant stenosis following valve implantation 7. A single Perclose suture in a oluszx-ds-qnygd were applied to the left femoral vein and a Mynx closure device to the left femoral artery 8. No complications Attending physician Austin Phan MD was present for the entire case, has reviewed and/or edited, and agrees with reported findings. Dr. Cedillo assisted throughout this procedure secondary to the lack of a fellow and the complexity of the intervention. He participated with all aspects of the procedure including balloon dilating the existing valve and placement of the new Nadege valve. STAFF: Interventionalist Austin Phan MD. Truck Cleaner Tech [employer]. Circulating Nurse Alexa Schaeffer RN. Anesthesiologist Phoenix Fox MD. Assisting Cath Physician Volodymyr Cedillo MD. Signed 08/29/2024 04:15 PM Austin Phan MD Procedure Note Austin Phan MD - 08/29/2024 Pediatric Catheterization Patient Name: DEVON SLOAN Study Type: Cath XA Patient : 1980 Exam Date: 08/29/2024 Age: 43Y Exam Time: 12:00:00 PM Referring MD: DULCE MARIA ARTHUR Height: 168cm Weight: 75.6kg BSA: 1.85 m2 Sex: MALE Account:[id number] CATH PROCEDURE: Procedure Description: Fluoro Time: 18.60 mins CINE Dose: 4266.40 cGycm2 Total Dose: 4266.40 cGycm2 Interv. Fluoro Time: 18.60 mins Medications Administered: Heparin, 6000 units, IV. Anticoagulant Heparin, 2000 units, IV. Anticoagulant Ropivacaine 0.2%, 7 ml, Subcut. Local Anesthetic CATH PRE-PROCEDURE: Pre-Procedure Pulses Bilateral PT: Right: Weak, Left: Weak HEMODYNAMICS: Pressures - Baseline (mmHg) Sys/A Colon/V Mn/EDP RA 30 28 28 RV 35 27 LPA 33 21 26 LPCW 20 LV 82 18 AOAsc 84 60 70 AODsc 83 58 68 Oximetry - Baseline (%, mmHg) Sat PaO2 SVC 54 MPA 46 LPA 48 AODsc 88 Shunts & Resistances - Baseline Rp 2.82 (BEARDEN) Rp I 5.21 (BEARDEN) Rs 19.25 (BEARDEN) Rs I 35.61 (BEARDEN) Rp/Rs 0.15 Cardiac Output - Baseline Hgb 17.6 g/dL VO2 209 ml/min VO2 I 112.74 ml/min/m Qp 2.13 l/min Qp I 1.15 l/min/m Qs 2.13 l/min Qs I 1.15 l/min/m Qp/Qs 1 Qep 2.13 l/min Qep I 1.15 l/min/m CAo2 88 % used in calc CVo2 47 % used in calc PVo2 88 % used in calc PAo2 47 % used in calc Pressures - Post-Intervention (mmHg) Sys/A Colon/V Mn/EDP RA 27 28 26 RV 32 25 MPA 34 23 28 LPA 27 25 27 LPCW 20 AODsc 98 66 79 FINDINGS: SUMMARY: HISTORY: DEVON SLOAN is a 43 yr old male with PA/IVS s/p biventricular repair. He has a surgically implanted bioprosthetic valve (25 mm Inspiris valve) in the pulmonary position. He has significant PI and presents for Nadege valve implantation. He is also known to be in atrial fib/flutter and will have a ZAK and cardioversion if no thrombi are identified. PROCEDURE: After a full discussion of the risks and benefits of the procedure, reviewing the consent form with the patient, and answering all questions, Devon was brought to the cardiac catheterization laboratory and placed supine on the catheterization table. A timeout was performed to verify correct identification and procedure to be performed. The patient was intubated and general anesthesia was provided throughout the case by the pediatric anesthesia team (please see the anesthesia record for medications and doses). Initially a ZAK was performed which demonstrated a very large RA with spontaneous contrast in the atrium but no definite thrombus. The left heart also appeared to be free of thrombus. Therefore he underwent cardioversion with 75 joules with resumption of sinus rhythm. The patient was then prepped and draped in the usual sterile fashion. The left femoral vein was accessed using the Seldinger technique under ultrasound guidance and a 7F Vietnamese sheath was placed. Likewise the LFA was accessed and a 4 fr sheath was placed. He previously had right femoral bypass. Ultrasound guidance, with documentation of vessel patency, realtime visualization of vascular needle entry, and permanent image recording, was utilized for all vascular access. 6000 units of heparin were given to maintain the ACT >220s. Two perclose sutures were placed into the left femoral venous access site. At the beginning of the case, a Holder catheter was advanced into the IVC and an injection was performed to assess for any filling defects in the RA. There were no clots identified so we proceeded with the catheterization. Right and left heart baseline oximetry and hemodynamics were obtained. The endhole catheter was advanced into the distal left lower pulmonary artery. A 0.035 in Lunderquist wire was then advanced into the left lower pulmonary artery and the catheter was removed. The left femoral venous sheath was then upsized to a 26 Vietnamese DrySeal sheath. During placement of the DrySeal sheath 1 of the Perclose sutures was inadvertently cut. A multi tract catheter was then advanced into the ventricle and an angiogram was obtained. This demonstrated somewhat hypoplastic right ventricle with a very dilated right atrium. Following angiography we proceeded with balloon expansion of the existing bioprosthetic valve. A 26-4 atlas gold balloon was advanced over the wire and positioned across the valve. The [place] gold balloon was inflated to 12 atmospheres and the existing valve frame expanded. The [place] balloon was then removed and replaced with a 28 -4 true balloon which was advanced into the bioprosthetic valve. The balloon was inflated to 6 atmospheres and a simultaneous aortic angiogram was obtained. This demonstrated no evidence of any coronary compression. We therefore elected to proceed with valve placement. A 29 mm Nadege 3 valve was selected and mounted on a Commander delivery system per the IFU. The dilator for the DrySeal sheath was advanced through the DrySeal sheath and attempts were made to advance the DrySeal sheath across the existing valve. We were able to get the tip of the sheath just within the bioprosthetic valve. The dilator was then removed and the Commander delivery system was advanced through the DrySeal sheath and using flexion on the Commander system we were able to advance it across the bioprosthetic valve. The pusher was then retracted from the balloon and the DrySeal sheath was retracted as well. Once the Nadege valve was in good position the balloon was expanded and the stent was deployed. The delivery system was then removed and a Holder catheter was then advanced into the main pulmonary artery for a final angiogram. Following the angiogram, the 7 fr end hole catheter was advanced into the LPA for final pullback hemodynamics. Ropivacaine was given around the access sites. The left femoral arterial sheath was upsized to a 5 Vietnamese prelude sheath and a Mynx vascular closure system was deployed in the arterial access site. A usqjnl-us-idyis stitch was placed around the venous access site since 1 of the Perclose sutures had been inadvertently cut as mentioned previously. The remaining Perclose suture was tightened and as the sheath and wire removed the iavmco-tp-gtecm suture was also tightened. This achieved hemostasis. This concluded the procedure. There were no complications noted. ANGIOGRAPHY: Attending physician: Austin Phan MD, angiographic imaging interpretation. 1. A Holder catheter is positioned in the inferior vena cava at the level of the diaphragm. Injection demonstrates a very enlarged inferior vena cava and right atrium. Contrast is seen swirling within the right atrium. No filling defects to suggest thrombi are identified. 2. A guidewire has been advanced antegrade through the right heart and a multi tract catheter is advanced over the wire. Injection is performed in the right ventricle. The holes of the balloon appeared to straddle the tricuspid valve. The right ventricle is somewhat hypoplastic and has an abnormal morphology with a truncated apex. A bioprosthetic valve is noted in the pulmonary position. 3. A fluoro saved image is obtained as a 26-4 atlas gold balloon is inflated within the bioprosthetic valve. With the initial inflation there is a narrowing in the midportion of the balloon which resolves with further expansion of the balloon as well as expansion of the valve. 4. A 28-4 true balloon is now inflated within the bioprosthetic valve. A simultaneous aortogram is performed. This demonstrates a left aortic arch. There is no aortic root compression in the coronary arteries do not appear to have any compression. 5. A 29 mm Nadege valve has been advanced into the bioprosthetic valve and the balloon was inflated to deploy the valve. With full inflation of the balloon the valve is well placed within the existing bioprosthetic valve. 6. The delivery system has been removed and replaced with a Holder catheter which advanced into the main pulmonary artery. With the injection we see a competent pulmonary valve with only trivial pulmonary regurgitation which appears to be catheter related. The proximal branch pulmonary arteries are seen to fill well with no stenosis. IMPRESSION: 1. 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 Status post placement of a 25 mm Inspiris bioprosthetic pulmonary valve. Now with severe pulmonary insufficiency. 2. Atrial fib/flutter secondary to markedly dilated right atrium. ZAK documented no thrombus and therefore the patient underwent cardioversion with 75 joules with sabianist of normal sinus rhythm 3. Low cardiac index of 1.15 liters/minute per meter squared with mean right atrial pressure of 28 mmHg. 4. Status post dilation of bioprosthetic valve with 26-4 atlas gold balloon and 28-4 true balloon 5. Status post implantation of 29 mm Nadege 3 valve within the bioprosthetic valve. 6. No pulmonary insufficiency or significant stenosis following valve implantation 7. A single Perclose suture in a addsvw-nj-tlnmn were applied to the left femoral vein and a Mynx closure device to the left femoral artery 8. No complications Attending physician Austin Phan MD was present for the entire case, has reviewed and/or edited, and agrees with reported findings. Dr. Cedillo assisted throughout this procedure secondary to the lack of a fellow and the complexity of the intervention. He participated with all aspects of the procedure including balloon dilating the existing valve and placement of the new Nadege valve. STAFF: Interventionalist Austin Phan MD. Truck Cleaner Tech [employer]. Circulating Nurse Alexa Schaeffer RN. Anesthesiologist Phoenix Fox MD. Assisting Cath Physician Volodymyr Cedillo MD. Signed 08/29/2024 04:15 PM Austin Phan MD us More Mars MD CV CARDIAC CATH PROCED URES Final Result * (ABNORMAL) POCT Activated clotting time, low range (08/29/2024 2:44 PM CDT) ACT 292(H) 120 - 170 sec Comment: Interpetive Data Reference Ranges Not Established for a Pediatric Population. Current interpretive data was last revised 2023. POC Performer [id number] [facility] POC Device Number [id number] [facility] Blood 08/29/2024 2:44 PM CDT 08/29/2024 2:44 PM CDT us Austin Phan MD LAB POCT ORDERABLES - DEVICE Final Result Performing Organization Address [facility] de Phone Number [place] [address] * (ABNORMAL) POCT Activated clotting time, low range (08/29/2024 1:57 PM CDT) ACT 237(H) 120 - 170 sec Comment: Interpetive Data Reference Ranges Not Established for a Pediatric Population. Current interpretive data was last revised 2023. POC Performer [id number] [facility] POC Device Number [id number] [facility] Blood 08/29/2024 1:57 PM CDT 08/29/2024 1:57 PM CDT us Austin Phan MD LAB POCT ORDERABLES - DEVICE Final Result Performing Organization Address [facility] Co de Phone Number [facility] [place] [address] * (ABNORMAL) POCT Blood gas-hgb sat, cath (08/29/2024 1:47 PM CDT) O2 saturation label tacker/or 48.4 % Carboxyhemoglob in, cath 1.3 0.0 - 2.9 % [facility] Hgb estimated 16.9 13.0 - 17.5 g/dL [facility] Methemoglobin, cath <1.0 <=1.9 % [facility] OxyHb 47.5(C) 90.0 - 95.0 % [facility] Specimen Source Speech Lang Path/OR LPA [facility] Blood 08/29/2024 1:47 PM CDT 08/29/2024 1:47 PM CDT Austin Phan MD LAB POCT ORDERABLES - DEVICE Final Result Performing Organization Address [facility] Co de Phone Number [facility] [place] [address] * (ABNORMAL) POCT Blood gas-hgb sat, cath (08/29/2024 1:45 PM CDT) O2 saturation label tacker/or 46.1 % Carboxyhemoglob in, cath 1.3 0.0 - 2.9 % [facility] Hgb estimated 16.8 13.0 - 17.5 g/dL [facility] Methemoglobin, cath <1.0 <=1.9 % [facility] OxyHb 45.2(C) 90.0 - 95.0 % [facility] Specimen Source Speech Lang Path/OR MPA [facility] Blood 08/29/2024 1:45 PM CDT 08/29/2024 1:45 PM CDT us Austin Phan MD LAB POCT ORDERABLES - DEVICE Final Result Performing Organization Address [facility]/ZIP Co de Phone Number [place] [address] * (ABNORMAL) POCT Blood gas-hgb sat, cath (08/29/2024 1:41 PM CDT) O2 saturation label tacker/or 53.7 % Carboxyhemoglob in, cath 1.3 0.0 - 2.9 % [facility] Hgb estimated 16.4 13.0 - 17.5 g/dL [facility] Methemoglobin, cath <1.0 <=1.9 % [facility] OxyHb 52.8(C) 90.0 - 95.0 % [facility] Specimen Source Speech Lang Path/OR SVC [facility] Blood 08/29/2024 1:41 PM CDT 08/29/2024 1:41 PM CDT Austin Phan MD LAB POCT ORDERABLES - DEVICE Final Result Performing Organization Address City/[facility] Co de Phone Number [place] [address] * (ABNORMAL) POCT Blood gas-hgb sat, cath (08/29/2024 1:40 PM CDT) pH Speech Lang Path/OR 7.30(L) 7.35 - 7.45 PCO2 Speech Lang Path/OR 38 35 - 45 mmHg [facility] PO2 Speech Lang Path/OR 59(L) 83 - 108 mmHg [facility] CO2, total 20 20 - 30 mmol/L [facility], label tacker/or -7.1 mmol/L [facility] O2 saturation label tacker/or 88.2 % [facility] Carboxyhemoglob in, cath 1.5 0.0 - 2.9 % [facility] Hgb estimated 16.6 13.0 - 17.5 g/dL [facility] Methemoglobin, cath <1.0 <=1.9 % [facility] OxyHb 86.6(L) 90.0 - 95.0 % [facility] Specimen Source Speech Lang Path/OR JUAN MANUEL [facility] Hct, POC 51.0 % [facility] Blood 08/29/2024 1:40 PM CDT 08/29/2024 1:40 PM CDT Austin Phan MD LAB POCT ORDERABLES - DEVICE Final Result Performing Organization Address City/[facility]/ZIP Co de Phone Number [facility] [place] [address] * PEDIATRIC LYUDMILA TRANSESOPHAGEAL ECHO (ZAK) W LTD DOPPLER/CF (08/29/2024 1:12 PM CDT) Anatomical Region Laterality Modality Ultrasound 08/29/2024 12:1 4 PM CDT Narrative 08/29/2024 4:29 PM CDT [facility] [address] [place] [address] Transesophageal Echo Report ----- Patient Name: DEVON SLOAN Study Type: ZAK Patient : 1980 Exam Date: 08/29/2024 Age: 43Y Exam Time: 12:14:00 PM Referring MD: DRAKE LUND Height: 168cm Weight: 76kg BSA: 1.86 m2 Sex: MALE BP: 73/54 Director Of Curriculum: Alex Montano Pat. Stat.: Inpatient Room: CLAY DIGGER Account:[id number] Indications for Study:PULMONARY ATRESIA. 747.3 Procedures: CONGENITAL LIMITED, DOPPLER LIMITED, COLORFLOW SUMMARY: Pulmonary atresia/intact septum s/p biventricular repair. s/p 25mm Inspiris bioprosthetic valve (02/23/2019). ZAK passed without issue by cardiology. LA without obvious clot. Dilated RA with spontaneous contrast. Hyperechoic region from the anterior wall of RA favored not to represent clot. After cardioversion, anterior wall hyperechogenicity appears stable. No tricuspid, pulmonary, aortic, or mitral regurgitation. FINDINGS: Signed 08/29/2024 04:29 PM Rashel Eddy MD Procedure Note Rashel Eddy MD - 08/29/2024 [facility] [address] [place] [address] Transesophageal Echo Report ----- Patient Name: DEVON SLOAN Study Type: ZAK Patient : 1980 Exam Date: 08/29/2024 Age: 43Y Exam Time: 12:14:00 PM Referring MD: DRAKE LUND Height: 168cm Weight: 76kg BSA: 1.86 m2 Sex: MALE BP: 73/54 Director Of Curriculum: Alex Montano Pat. Stat.: Inpatient Room: CLAY DIGGER Account:[id number] Indications for Study:PULMONARY ATRESIA. 747.3 Procedures: CONGENITAL LIMITED, DOPPLER LIMITED, COLORFLOW SUMMARY: Pulmonary atresia/intact septum s/p biventricular repair. s/p 25mm Inspiris bioprosthetic valve (02/23/2019). ZAK passed without issue by cardiology. LA without obvious clot. Dilated RA with spontaneous contrast. Hyperechoic region from the anterior wall of RA favored not to represent clot. After cardioversion, anterior wall hyperechogenicity appears stable. No tricuspid, pulmonary, aortic, or mitral regurgitation. FINDINGS: Signed 08/29/2024 04:29 PM Rashel Eddy MD us Silvia Tanner [employer] INSTALLER CV ECHO PROCEDURES Final Resu lt * CO AN ELECTIVE ENDOTRACHEAL AIRWAY, CO AN PROCEDURE PLACEHOLDER (08/29/2024 12:41 PM CDT) Narrative Phoenix Fox MD - 08/29/2024 12:41 PM CDT Phoenix Fox MD 08/29/2024 12:41 PM Airway Patient location: OR Urgency: elective Date/time: 08/29/2024 12:33 PM Indications for airway management: anesthesia and airway protection Difficult airway: no Emergent airway documentation: Risks and benefits discussed: yes Consent obtained: yes Consent given by: patient Airway prep: Preoxygenated: yes Patient position: sniffing Mask difficulty assessment: 1 - vent by mask Sedation level during airway: GA Final airway details: Final airway type: endotracheal airway Tube type: ETT ETT size: 7.5 mm Cuffed: yes Technique used for successful ETT placement: direct laryngoscopy Insertion site: oral Blade type: Mansoor Blade size: 3 Cormack-Lehane (direct): grade I - full view of glottis Cuff inflated with: air ETT to lips: 22 cm Placement verified by: auscultation Airway secured with: silk tape Number of attempts: 1 Ventilation between attempts: none Planned trial extubation: yes us Phoenix Fox MD ANESTHESIA ORDERABLES Final Result * ECG 12 lead (08/29/2024 10:36 AM CDT) Pathologist [facility] Ventricular Rate EKG/Min 91 BPM [facility] Atrial Rate 250 BPM [facility] QRS-Interval (MSEC) 140 ms [facility] QT-Interval (MSEC) 478 ms [facility] QTc 587 ms [facility] R [place] 182 degrees [facility] T [place] -80 degrees [facility] Diagnosis Atrial flutter with variable A-V block Unable to accurately measure the QT interval Abnormal ECG When compared with ECG of 22-AUG-2024 10:11, No significant change was found Confirmed by fellow Shanel Hall do ([id number]) on 08/29/2024 10:45:57 AM I have personally reviewed the study and I agree with the above findings Confirmed by LEORA MOLINA M.D. ([id number]) on 08/29/2024 3:58:29 PM [facility] 08/29/2024 10:3 6 AM CDT 08/29/2024 3:58 PM CDT us Silvia Tanner [employer] IN[employer] ECG ORDERABLES Final Result [facility] * ABO / Rh Confirmation Testing (08/29/2024 9:59 AM CDT) Pathologist [facility] ABO/Rh Confirmation A Positive [facility] Blood 08/29/2024 9:59 AM CDT 08/29/2024 10:26 AM CDT us Austin Phan MD LAB BLOOD ORDERABLES Final Re sult [facility] [place] [address] [facility] * (ABNORMAL) CBC without differential (08/29/2024 9:59 AM CDT) Pathologist [facility] WBC 5.60 3.80 - 9.90 K/cumm Hgb 17.6(H) 13.0 - 17.5 g/dL [facility] Hct 52.0(H) 38.9 - 50.3 % [facility] Plt 206 150 - 400 K/cumm [facility] MPV 12.0 9.1 - 12.3 fL [facility] RBC 5.69 4.30 - 5.80 M/cumm [facility] MCV 91.4 81.3 - 96.4 fL [facility] MCH 30.9 27.1 - 33.3 pg [facility] MCHC 33.8 32.3 - 35.7 g/dL [facility] RDW CV 14.0 11.1 - 14.9 % [facility] RDW SD 46.5 35.7 - 48.1 fL [facility] NRBC abs 0.00 0.00 - 0.01 K/cumm [facility] Blood 08/29/2024 9:59 AM CDT 08/29/2024 10:20 AM CDT us Silvia Tanner NP LAB BLOOD ORDERABLES Final Re sult Performing Organization Address City/[facility] Co de Phone Number [facility] [place] [address] * Prepare RBC: 1 Units (08/29/2024 9:26 AM CDT) Units requested 1 Units requested Ready [facility] Unit Number [id number] Product code [id number] [facility] Blood Expiration Date [id number] [facility] Product Blood Type (for scanning) 5100 [facility] Product Blood Type OPOS [facility] Dispense Status DISPENSED [facility] Blood 08/29/2024 9:26 AM CDT 08/29/2024 9:25 AM CDT us Silvia Tanner NP BLOOD BANK PRODUCT ORDERABLES Final Result Performing Organization Address [facility] Co de Phone Number [facility] [place] [address] * eGFR (08/22/2024 11:55 AM CDT) eGFR >90 >=90 mL/min/1. 73 m2 Comment: Interpretive Data Reference Interval Normal >/= 90 mL/min/1.73m2 Mildly decreased* 60 - 89 mL/min/1.73m2 Mildly to moderately decreased 45 - 59 mL/min/1.73m2 Moderately to severely decreased 30 - 44 mL/min/1.73m2 Severely decreased 15 - 29 mL/min/1.73m2 Kidney Failure < 15 mL/min/1.73m2 *Relative to young adult level Estimated glomerular filtration rate is determined by the 2020 CKD-EPI equation recommended by the [employer] (A Unifying Approach to GFR Estimation: Recommendations of the [employer] Task Force on Reassessing the Inclusion of Race in Diagnosing Kidney Disease, JASN 2020). The CKD-EPI equation should not be used for patients with unstable renal function and has not been validated in children and those over 70. Current interpretive data was last reviewed 2021. Blood 08/22/2024 11:5 5 AM CDT 08/22/2024 12:08 PM CDT Silvia Tanner NP LAB BLOOD ORDERABLES Final Re sult Performing Organization Address [facility] Co de Phone Number [facility] [place] [address] * ABO/Rh (08/22/2024 11:55 AM CDT) Pathologist [facility] ABO/Rh A Positive Blood 08/22/2024 11:5 5 AM CDT 08/22/2024 12:33 PM CDT Silvia Tanner NP LAB BLOOD BANK TEST ORDERABLE S Final Result Performing Organization Address [facility] Co de Phone Number [facility] [place] [address] * Crossmatch (08/22/2024 11:55 AM CDT) Crossmatch Compatible [facility] Unit number for crossmatch [id number] [facility] Blood 08/22/2024 11:5 5 AM CDT 08/22/2024 12:33 PM CDT Prince Blount MD LAB BLOOD BANK TEST ORDERABLES Final Result Performing Organization Address City/[facility]/ZIP Co de Phone Number [facility] [place] [address] * Antibody screen (08/22/2024 11:55 AM CDT) Pathologist [facility] Shaneka, indirect, Gel Interpretation Negative ABSC Blood 08/22/2024 11:5 5 AM CDT 08/22/2024 12:33 PM CDT Silvia Tanner NP LAB BLOOD BANK TEST ORDERABLE S Final Result Performing Organization Address [facility] Co de Phone Number [facility] [place] [address] * (ABNORMAL) TSH (08/22/2024 11:55 AM CDT) [facility] Thyroid Stimulating Hormone 5.86(H) 0.30 - 4.20 mcIUnit/mL Blood 08/22/2024 11:5 5 AM CDT 08/22/2024 12:08 PM CDT Silvia Tanner NP LAB BLOOD ORDERABLES Final Re sult Performing Organization Address City/[facility]/[place] [address] * T4, free (08/22/2024 11:55 AM CDT) Pathologist [facility] Free T4 1.51 0.90 - 1.70 ng/dL Blood 08/22/2024 11:5 5 AM CDT 08/22/2024 12:08 PM CDT Silvia Tanner NP LAB BLOOD ORDERABLES Final Re sult Performing Organization Address City/[facility]/ZIP Co de Phone Number [place] [address] * Basic metabolic panel (08/22/2024 11:55 AM CDT) Sodium 136 135 - 145 mmol/L Potassium, pl 4.5 3.3 - 4.9 mmol/L [facility] Chloride 105 97 - 110 mmol/L [facility] CO2 23 22 - 32 mmol/L [facility] Anion gap 8 2 - 15 mmol/L [facility] BUN 18 6 - 25 mg/dL [facility] Creatinine 1.05 0.80 - 1.30 mg/dL [facility] Glucose 136 70 - 199 mg/dL [facility] Comment: Interpretive Data Fasting glucose >/= 126 mg/dl is diagnostic for diabetes. Fasting is defined as no caloric intake for at least 8 hours. Fasting glucose between 100 mg/dl to 125 mg/dl is diagnostic of prediabetes. In a patient with classic symptoms of hyperglycemia or hyperglycemic crisis, a random glucose >/= 200 mg/dl is diagnostic for diabetes. In the absence of unequivocal hyperglycemia, results should be confirmed by repeat testing. The classification and Diagnosis of Diabetes Diabetes Care 202; 46: S19-S40. Current interpretive data was last revised 2022. Calcium 9.4 8.5 - 10.3 mg/dL [facility] Blood 08/22/2024 11:5 5 AM CDT 08/22/2024 12:08 PM CDT Silvia Tanner NP LAB BLOOD ORDERABLES Final Re sult Performing Organization Address City/[facility]/[place] [address] * XR Chest Pa Lateral 2 Views (08/22/2024 9:29 AM CDT) Anatomical Region Laterality Modality Body, Chest N/A Computed Radiogr aphy 08/22/2024 11:1 6 AM CDT Impressions 08/22/2024 11:40 AM CDT Median sternotomy wires are aligned and intact. Changes of pulmonary valve replacement. Lungs are clear. No pleural effusion or pneumothorax. Unchanged cardiomediastinal silhouette. Unchanged moderate cardiomegaly. Dictated by: Demi Morataya M.D. The radiology attending physician has personally reviewed this study, and had reviewed and/or edited this written report and agrees with it. Electronically signed by: More Medina M.D. Narrative 08/22/2024 11:40 AM CDT EXAMINATION: XR CHEST PA LATERAL 2 VIEWS HISTORY: 43-year-old male , status post pulmonary valve replacement in 2014. Pre-catheterization examination. COMPARISON: MRI 06/21/2024, radiograph 06/17/2021. Procedure Note More Medina MD - 08/22/2024 EXAMINATION: XR CHEST PA LATERAL 2 VIEWS HISTORY: 43-year-old male , status post pulmonary valve replacement in 2014. Pre-catheterization examination. COMPARISON: MRI 06/21/2024, radiograph 06/17/2021. IMPRESSION: Median sternotomy wires are aligned and intact. Changes of pulmonary valve replacement. Lungs are clear. No pleural effusion or pneumothorax. Unchanged cardiomediastinal silhouette. Unchanged moderate cardiomegaly. Dictated by: Demi Morataya M.D. The radiology attending physician has personally reviewed this study, and had reviewed and/or edited this written report and agrees with it. Electronically signed by: More Medina M.D. us Silvia Tanner [employer] IMG XR PROCEDURES Final Resul t * Hepatitis C antibody Blood (06/01/2024 8:58 AM CDT) Hep C Ab NON-REACTI VE NON-REACT [place] [facility] Comment: HCV antibody was non-reactive. There is no laboratory evidence of HCV infection. In most cases, no further action is required. However, if recent HCV exposure is suspected, a test for HCV RNA (test code 79232) is suggested. For additional information please refer to http://education.[employer]/faq/GXJ09d7 (This link is being provided for informational/ educational purposes only.) Blood 06/01/2024 8:58 AM CDT 06/01/2024 8:58 AM CDT Narrative [facility] - 06/02/2024 6:58 AM CDT FASTING:YES FASTING: YES Carol Quiñones NP LAB MICROBIOLOGY - GENE RAL ORDERABLES Final Result Performing Organization Address City/[facility]/ZIP Co de Phone Number [facility] [address] [facility] [place] [address] * (ABNORMAL) Albumin Creatinine Ratio, Urine (06/01/2024 [...] FASTING: YES us Carol Quiñones NP LAB URINE ORDERABLES Fi nal Result Performing Organization Address City/[facility]/ZIP Co de Phone Number [facility] [address] [place] [address] * (ABNORMAL) Lipid panel (06/01/2024 8:58 AM [...] of LDL-C. Jovany SS et al. LOVE. 2013;310(19): 1266-4034 (http://education.[employer]/faq/IYD463) Chol/HDL ratio 3.1 <5.0 (calc) [facility] [...] AM CDT FASTING:YES FASTING: YES Carol Quiñones [employer] LAB BLOOD ORDERABLES Fi nal Result [facility] [address] [place] [id number] * DIABETES EYE EXAM (03/26/2024) 03/26/2024 Historical Provider HEALTH MAINTENANCE Final Result from Last 3 Months or Most Recently Relevant to Health Maintenance Insurance [facility] [employer] SIGNATURE [facility] [employer] SIGNATURE Advance Directives For more information, please contact: [phone] Documents on File Type Date Recorded 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
--- OUTSIDE RECORDS SUMMARY | 2024-10-08 11:54 | XMS_ITS | Encounter Summary ---
Author Organization [facility] Address [address] [place] [address] Phone Care Team Providers Care Campus Receptionist Name Role Phone Roxanne Meza MD, Cam Ballard Unavailable More Mars MD Unavailable [phone] Phoenix Tejeda MD Primary Care Provider [phone] Reason for Visit * Cardiology (Routine) - [...] 48 Hour Holter Monitor More Mars MD Phone: tel: fax: [facility] (All Locations) Referral ID Status Reason Start Date Expiration Date Visits Re quested Visits Authorized [id number] Closed 09/14/2023 10/13/2024 1 1 Encounter Details Date Type Department Care Team (Late st Contact Info) Description 09/14/2023 4:00 PM CDT Hospital Encounter [facility] Pediatric Cardiology [facility] [address] [place] [phone] Social History Tobacco Use Types Packs/Day Years [...] often do you attend chur ch or church services? Never 09/28/2022 Do you belong to any clubs o r organizations such as congregation groups, unions, fraternal or athletic groups, or [...] staff should administer the PHQ-9) 0 05/29/2024 [facility] - Occupational Stress Questionnaire Answer Date [...] place to sleep or slept in a jail (including now)? No 09/28/2022 PHQ-9 Answer Date [...] Score Answer Date of Assessment Author 2 08/22/2024 8:09 AM CDT Eliz Plaza RN * Question Answer Date of Assessment Author Q1: How often do you have a drink containing alcohol? 2-4 times a month 08/22/2024 8:09 AM CDT Demetrice Thomas RN Q2: How many drinks containing alcohol do you have on a typical day when you are drinking? 1 or 2 08/22/2024 8:09 AM CDT Demetrice Thomas RN Q3: How often do you have six or more drinks on one occasion? Never 08/22/2024 8:09 AM CDT Demetrice Thomas RN documented as of this encounter Plan of [...] us More Mars MD CV CARDIAC SERVICES DE OCEDURES Final Result documented in this encounter Visit Diagnoses Not on filedocumented in this encounter Care Teams Campus Receptionist Relationship Specialty Start Date End Date Phoenix Tejeda MD [address] [place] [address] PCP - General Family Medicine 10/26/21 Cam Oliveira Jr., MD Consulting Physician Endocrinology Diabetes & Metabolism 08/06/21 More Mars MD Consulting Physician Pediatric Cardiology 08/06/21 documented as of this encounter
--- OUTSIDE RECORDS SUMMARY | 2024-10-08 11:54 | XMS_ITS | Clinical Summary ---
Author Organization [facility] Address [address] [place] [address] Care Team Providers Care Program Admin Name Role Phone Roxanne Meza MD, Cam Ballard Unavailable More Mars MD Unavailable Phoenix Colon MD Primary Care Provider [phone] Allergies No known active allergies Medications glucagon (glucagon) 1 mg kit Use as directed for low blood sugar. 1 kit 11 021 Active blood-glucose meter (OneTouch Verio Meter) misc 1 each 4 (four) times a day 1 each 021 Active blood glucose diagnostic (OneTouch Verio test strips) strip 200 each by other route as directed Use to measure blood glucose 4 times daily 200 each 021 Active multivitamin capsuleIndications :Vitamin Deficiency Prevention Take [...] misc USE DIRECTED 1 each 024 Active amoxicillin (AMOXIL) 500 mg tablet/capsuleIndi cations:Prophylaxi s, Medical,take 30 minutes prior to dental cleaning/procedure s Take 4 tablet/capsule (2000 mg) by mouth once 30 minutes prior to dental cleaning or procedure 1 tablet/cap blake 1 024 Active Xarelto 20 mg tablet TAKE 1 [...] TABLET DAILY 90 tablet 3 024 Active Dexcom G7 Sensor device 1 Device [...] valve replacement with bioprosthetic valve,Nonrheumatic pulmonary valve insufficiency,Emt I/85 yajaira congestive heart failure with right ventricular [...] daily dose 70 units 70 mL 3 025 Active insulin glargine 100 unit/mL (3 mL) [...] mL 3 024 2024 Discontinued blood-glucose transmitter (CareLuLu G6 Transmitter) deviceIndications: Type 2 diabetes mellitus with hypoglycemia without coma, with long-term current use of insulin (HCC) Use as directed to check blood glucose; change every 90 days 1 each 1 024 2024 Discontinued insulin glargine 100 unit/mL (3 mL) pen for injection Inject 30 Units under the skin daily as needed (use only in case of insulin pump failure) 3 mL 6 025 2024 Discontinued(R eorder) insulin lispro-aabc (LYUMJEV) 100 unit/mL vial for injection Use via insulin pump. Maximum total daily dose 70 units 45 mL 3 025 2024 Discontinued(R eorder) Active Problems Problem Noted Date Diagnosed Date S/P transcatheter replacement of pulmonary valve 08/29/2024 Lipoma of head 05/29/2024 Assessment & Plan (05/29/2024 10:27 AM CDT): Referring to general surgery at [facility] for excision. 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 Continue current medication. Acute idiopathic gout of multiple sites 04/28/19 Assessment & Plan (04/28/2023 4:49 PM DIRECTOR BUSINESS MANAGEMENT): Stable, well controlled; patient reports occasional flares; [...] 03/24/2022 Assessment & Plan (04/28/2023 4:49 PM DIRECTOR BUSINESS MANAGEMENT): Stable, well controlled; patient was not able to start CPAP; patient reports improved sleep quality; less daytime sleepiness; will continue to monitor Mood disorder 10/27/2021 Assessment & Plan (04/28/2023 4:49 PM DIRECTOR BUSINESS MANAGEMENT): Stable well controlled; no major issues; patient [...] flutter afterwards. >>OVERVIEW FOR ATRIAL FLUTTER (CMS/HCC) ([facility]) WRITTEN ON 10/19/2021 10:37 AM BY TIM VALENTE Added automatically from request for surgery [id number] Assessment & Plan (05/29/2024 10:27 AM CDT): Normal sinus rhythm today in office, continue sotalol prescribed by Dr. Carey. Uses Xarelto for anticoagulation. Assessment & Plan (05/19/2023 9:22 AM DIRECTOR BUSINESS MANAGEMENT): He is doing well on sotalol with limited AF recurrence in setting of COVID QT interval stable, QTc 487 ms Continue sotalol 120 mg BID BMP today Continue Xarelto for stroke risk reduction Assessment & Plan (04/28/2023 12:43 PM DIRECTOR BUSINESS MANAGEMENT): >>ASSESSMENT AND PLAN FOR ATRIAL FLUTTER (CMS/HCC) ([facility]) WRITTEN ON 11/22/2021 8:47 PM BY PHOENIX COLON MD Stable, s/p cardioversion, currently in NSR Assessment & Plan (04/28/2023 12:43 PM DIRECTOR BUSINESS MANAGEMENT): >>ASSESSMENT AND PLAN FOR ATRIAL FIBRILLATION (CMS/HCC) ([facility]) WRITTEN ON 10/27/2021 4:56 PM BY PHOENIX COLON MD EKG performed today; rate of 100, irregularly irregular, atrial fibrillation flutter Possible right bundle-branch block and right axis deviation QRS complex near Assessment & Plan (04/28/2023 12:43 PM DIRECTOR BUSINESS MANAGEMENT): >>ASSESSMENT AND PLAN FOR ATRIAL FIBRILLATION (CMS/HCC) ([facility]) WRITTEN ON 09/28/2022 1:29 PM BY PHOENIX COLON MD Stable, and regular rate and rhythm today; continue sotalol 120 mg b.i.d.; Xarelto 20 mg daily Assessment & Plan (04/28/2023 12:43 PM DIRECTOR BUSINESS MANAGEMENT): >>ASSESSMENT AND PLAN FOR ATRIAL FIBRILLATION (CMS/HCC) ([facility]) WRITTEN ON 10/29/2022 2:19 PM BY ALIZE SARABIA NP He is doing well on sotalol without [...] dose of sotalol Has follow up with alize sarabia NP in cardiology on 10/29 Assessment & Plan (09/17/2022 6:08 PM CDT): 41 yo make with h/o AFib/AFlutter with several cardioversions and failed current oral medications Home meds: Metoprolol XL 100mg, Digoxin 125mcgs Starting Sotolol tonight 80mg bid Cardiac risk counseling 01/20/2021 Pulmonary atresia with intact ventricular septum 01/20/2021 Assessment & Plan (05/19/2023 9:22 AM DIRECTOR BUSINESS MANAGEMENT): Pulmonary atresia with ASD s/p pulmonary valvotomy, [...] from the original note were not included. Channing Sloan is a 43 y.o. 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 His previsit [...] Diathermy procedures, the CGM sensor, transmitter, and sewing machine mechanic must be removed prior to the procedure. -Enter POCT glucose, CGM order in Epic -CGM glucose value can be used for [...] correction factor - Bedtime and overnight: 0 Sick Day Dose: 4 Carb ratio - Breakfast [...] diabetes. Assessment & Plan (04/28/2023 4:48 PM DIRECTOR BUSINESS MANAGEMENT): Not well controlled; last A1c elevated at [...] 05/29/2024 Assessment & Plan (04/13/2024 10:15 AM DIRECTOR BUSINESS MANAGEMENT): Acute nodule in nostril with some surrounding swelling. Will send bactrim to treat. If symptoms worsen or do not improve recommend in person evaluation. Patient verbalized understanding and agreed to plan of care at this time. Encounters Date Type Department Care Team Description 09/27/2024 Results Follow-Up [facility] Diabetes Endocrine Care at [address] [phone] Tl Cruz, DO GELY-65 autoantibody, ZINC TRANSPORTER 8 (ZnT8) ANTIBODY, Anti-islet cell antibody, Additional followed-up results: 2 09/13/2024 2:30 PM CDT Office Visit [facility] Diabetes Endocrine Care at [address] [phone] Tl Cruz DO Type 2 diabetes mellitus with hyperglycemia, with long-term current use of insulin (HCC) (Primary Dx) 09/10/2024 Orders Only [facility] Cardiology [address] [facility] [address] [place] [phone] More Mars MD 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); Prosthetic pulmonary valve insufficiency; Chronic systolic dysfunction of right ventricle; Status post pulmonary valve replacement with bioprosthetic valve; Elevated right ventricular end-diastolic pressure; Low cardiac output syndrome (HCC); S/P transcatheter replacement of pulmonary valve 09/05/2024 Orders Only [facility] Pediatric Cardiology [facility] 2[address] [place] [address] [place] [address] Melinda Benavides 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); Status post pulmonary valve replacement with bioprosthetic valve 09/05/2024 Orders Only [facility] Pediatric Cardiology [facility] 2[address] [place] [address] [place] [address] Maylin Orellana RN Chronic systolic dysfunction of right ventricle (Primary Dx); S/P transcatheter replacement of pulmonary valve 09/04/2024 Orders Only [facility] Pediatric Cardiology [facility] [address] [place] [address] [place] [address] Danica Guaman RN 08/29/2024 12:18 PM CDT Anesthesia Event [facility] Pediatric [place] [address] Phoenix Fox MD Bowman, Tammy M., NP 08/29/2024 12:05 PM CDT - 08/29/2024 4:10 PM CDT Surgery [facility] Pediatric [place] [address] Austin Phan MD Pediatric Cardiac Catheterization 08/29/2024 9:13 AM CDT - 08/30/2024 4:00 PM CDT Hospital Encounter [facility] [address] [place] [address] Austin Phan MD Orr, William Brinson, MD Pulmonary atresia with intact ventricular septum; Status post pulmonary valve replacement with bioprosthetic valve; Nonrheumatic pulmonary valve insufficiency; Chronic congestive heart failure with right ventricular diastolic dysfunction (HCC); Elevated right ventricular end-diastolic pressure Discharge Disposition: Discharge to home or self care 08/22/2024 1:30 PM CDT Pre-Admission Testing [facility] [place] [address] 08/22/2024 11:45 [place] [address] Atrial fibrillation and flutter (HCC); Adult congenital heart disease; Chronic systolic dysfunction of right ventricle; Elevated right ventricular end-diastolic pressure; Prosthetic pulmonary valve insufficiency; Pulmonary atresia with intact ventricular septum; Status post pulmonary valve replacement with bioprosthetic valve; Chronic anticoagulation on Xarelto 08/22/2024 10:30 AM CDT - 08/22/2024 11:59 PM CDT Hospital Encounter [facility] Pediatric Cardiology [facility] Heart Station [address] [place] [address] Atrial fibrillation and flutter (HCC) Discharge Disposition: Discharge to home or self care 08/22/2024 9:25 AM CDT - 08/22/2024 11:59 PM CDT Hospital Encounter [facility] Diagnostic [place] [address] Atrial fibrillation and flutter (HCC); Adult congenital heart disease; Chronic systolic dysfunction of right ventricle; Elevated right ventricular end-diastolic pressure; Prosthetic pulmonary valve insufficiency; Pulmonary atresia with intact ventricular septum; Status post pulmonary valve replacement with bioprosthetic valve; Chronic anticoagulation on Xarelto Discharge Disposition: Discharge to home or self care 08/22/2024 7:30 AM CDT Pre-Admission Testing [facility] [address] [place] [address] 08/21/2024 Telephone [facility] Pediatric [place] [address] Sivlia Tanner NP 08/20/2024 Orders Only [facility] Pediatric Cardiology [facility] [address] [place] [address] [place] [address] Melinda Benavides Atrial fibrillation and flutter (HCC) (Primary Dx) 07/16/2024 Telephone [facility] Pediatric Cardiology [facility] 2nd [place] [address] [place] [address] Maylin Orellana RN from Last 3 Months Immunizations Immunization Administration Dates Next Due Hep A, Adult 02/12/2023 Influenza, Quadrivalent, Spl it, Preservative Free, Intramuscular 11/29/2022 Influenza, Trivalent, Preser vative Free, Intramuscular 12/15/2023 Influenza, Unspecified 06/02/2023(Deferr ed: Patient Refused),12/22/2022(Deferred: Patient Refused),01/03/2022,11/12/2021(Deferre d: Patient Refused),10/26/2021(Deferred: Not available from bi consultant),12/12/2020(Deferred: Patient Refused) Surgical History Surgery Date Site/Laterality Comments SUBCLAVIAN / PULMONARY SHUNT 1982 Right [facility] PULMONARY VALVULOPLASTY 02/27/1983 [facility] SUBCLAVIAN / PULMONARY SHUNT 03/14/1985 - 03/13/1986 Left CARDIAC SURGERY 11/23/1990 RVOT patch angioplasty across TV, Dr. Didier Conley, [facility] PULMONARY VALVE REPLACEMENT 02/23/2019 with 25mm Inspiris bioprosthetic valve, Dr. Welch, [facility] [place], [place] HERNIA REPAIR 03/14/2016 - 03/13/2017 Right SHUNT EXTERNALIZATION 1983 CARDIOVERSION 2021 & 2022 CARDIAC CATHETERIZATION 08/29/2024 N/A Procedure: Pediatric Cardiac Catheterization; Surgeon: Austin Phan MD; Location: [facility] CARDIAC SHEETROCK APPLICATOR; Service: Cardiovascular; Laterality: N/A; PA/IVS w 2v repair and VERY small RV, significant diastolic dysfunction. Referral for diagnostic cath and transcatheter PVR. Medical devices from this surgery are in the Medical Devices section. Medical History Medical History Date Comments Pulmonary atresia with intact ventricular septum 01/20/2021 Status post pulmonary valve replacement with bioprosthetic valve 01/20/2021 Chronic systolic dysfunction of right ventricle 01/20/2021 Type 2 diabetes mellitus wit h hypoglycemia, with long-term current use of insulin (HCC) 09/18/2020 Heart disease , 1982 Atrial fibrillation (HCC) Sleep apnea PONV (postoperative nausea and vomiting) Family History Medical History Relation Name Comments Diabetes Maternal Grandfather Diabetes Maternal Grandmother Heart disease Maternal Grandmother Diabetes Mother Jie Gustafson Diabetes Mother's Brother Rikki Freitasacofe Diabetes Mother's Sister 1 Nevin Freitasacofe Diabetes Mother's Sister 2 Miram Preston Stroke Paternal Grandfather Breast cancer Paternal Grandmother Relation Name Status Comments Maternal Grandfather Maternal Grandmother Mother Jie Freitasacofe Mother's Brother Rikki Freitasacofe Mother's Sister 1 [...] often do you attend chur ch or religion services? Never 09/28/2022 Do you belong to any clubs o r organizations such as gnosticist groups, unions, fraternal or athletic groups, or [...] staff should administer the PHQ-9) 0 05/29/2024 [facility] Questionnaire Answer Date [...] place to sleep or slept in a mcfp (including now)? No 09/28/2022 PHQ-9 Answer Date [...] 09/13/2024 2:01 PM CDT Plan of Treatment Health Maintenance Due Date Last Done Comments DTaP/Tdap/Td Vaccine (1 - Tdap) 1993 Pneumococcal vaccine <65 (1 of 2 - PCV) 2001 HPV Vaccines (1 - 3-dose SCD M series) 2009 Influenza Vaccine (#1) 2024 , 11/29/2022, 01/03/2022 Hemoglobin A1C 03/16/2025 09/13/2024, 05/12, 09/08/2023, Additional history exists Dilated Eye Exam 03/26/2025 03/26/2024, 03/03/2023 Depression Screening 05/29/2025 05/29/2024, 05/29/2024, 04/28/2023, Additional history exists Foot Exam 05/29/2025 05/29/2024, 11/12/2021 Regular Well Visit/Exam 18-64 05/29/2025 05/29/2024, 11/12/2021 Albumin Creatinine Ratio, Urine 06/01/2025 06/01/2024, 04/28/2023, 10/26/2021, Additional history exists Lipid Panel 06/01/2025 06/01/2024, 10/12, 09/18/2020 eGFR 08/22/2025 08/22/2024, 05/13, 06/01/2024, Additional history exists Covid-19 Vaccine Completed 12/15/2023, , 04/05/2022, Additional history exists Hepatitis B Screening Completed 06/01/2024 Hepatitis C Screening Completed 06/01/2024 Varicella Vaccines Discontinued Medical Devices Implanted Type Area Lead Pressman Roto Gravure Printing Device Identifier Shelf Expiration Date Model / Serial / Lot Mesh Mesh Abdomen Shunt Implanted:Qty: 2 Shunt Arterial Stent Implanted:Qty: 1 Stent Coronary Artery [employer] System Closure Repair Femoral Artery Suture Mediated Perclose Prostyle 85678-96 - [id number] Implanted:Qty: 1 on 08/29/2024 by Austin Phan MD at [facility] [employer] 06/11/2026 [id number] / / [id number] [employer] System Closure Repair Femoral Artery Suture Mediated Perclose Prostyle 45788-46 - [id number] Implanted:Qty: 1 on 08/29/2024 by Austin Phan MD at [facility] [employer] 07/11/2026 [id number] / / [id number] [employer] Nadege 3 29mm Transcatheter Aortic Valve [id number] - [id number] - [id number] Implanted:Qty: 1 on 08/29/2024 by Austin Phan MD at [facility] [employer] 05/03/2026 [id number] / [id number] / [id number] [employer]osure [employer] Device 10ml 5fr Closure Mynx Control 2 Mode Balloon Catheter [id number] - [id number] Implanted:Qty: 1 on 08/29/2024 by Austin Phan MD at [facility] [employer] 06/25/2026 [id number] / / [id number] Procedures Procedure Name Priority Date/Time Associated Diagnosis Comments GLUCOSE, FASTING Routine 09/19/2024 11:54 AM CDT ANTI-ISLET CELL ANTIBODY Routine 09/19/2024 11:54 AM CDT Type 2 diabetes mellitus with hyperglycemia, with long-term current use of insulin (HCC) ZINC TRANSPORTER 8 (ZNT8) ANTIBODY Routine 09/19/2024 11:54 AM CDT Type 2 diabetes mellitus with hyperglycemia, with long-term current use of insulin (HCC) GELY-65 AUTOANTIBODY Routine 09/19/2024 11:54 AM CDT Type 2 diabetes mellitus with hyperglycemia, with long-term current use of insulin (HCC) INSULIN AUTOANTIBODY Routine 09/19/2024 11:54 AM CDT Type 2 diabetes mellitus with hyperglycemia, with long-term current use of insulin (HCC) POCT HEMOGLOBIN A1C Routine 09/13/2024 2 :21 [...] with long-term current use of insulin (HCC) HM DIABETES EYE EXAM Routine 03/26/2024 from Last 3 Months or Most Recently Relevant to Health Maintenance Results * ZINC TRANSPORTER 8 (ZnT8) ANTIBODY (09/19/2024 11:54 AM CDT) Zinc Transporter 8 (Znt8) Antibody <10 <15 U/mL [facility], Comment: For additional information, please refer to http://education.[employer]/faq/MUB119 (This link is being provided for information/educational purposes only.) Blood 09/19/2024 11:5 4 AM CDT 09/19/2024 11:55 AM CDT Narrative [facility] - 09/26/2024 6:27 PM CDT FASTING:YES FASTING: YES [facility] Loyd Cruz LAB BLOOD ORDERABLES Final Result Performing Organization Address [facility] Co de Phone Number [facility], [address] [place] [address] * (ABNORMAL) INSULIN AUTOANTIBODY Blood (09/19/2024 11:54 AM CDT) Insulin ab >50.0(H) <0.4 U/mL [facility], Blood 09/19/2024 11:5 4 AM CDT 09/19/2024 11:55 AM CDT Narrative [facility] - 09/26/2024 6:27 PM CDT FASTING:YES FASTING: YES [facility] Loyd Cruz DO [facility] MICROBIOLOGY - GENERAL ORDERABLES Final Result Performing Organization Address [facility] Co de Phone Number [facility], [address] [place] [address] * GELY-65 autoantibody (09/19/2024 11:54 AM CDT) Glutamic acid decarboxylase 65, ab <5 <5 IU/mL [facility] Comment: This test was performed using the GAD65 KELLY method, which is standardized against the International reference preparation 97/550. Blood 09/19/2024 11:5 4 AM CDT 09/19/2024 11:55 AM CDT Narrative [facility] - 09/26/2024 6:27 PM CDT FASTING:YES FASTING: YES Tl Cruz DO LAB BLOOD ORDERABLES Final Result Performing Organization Address [facility] Co de Phone Number [facility]/[place] [address] [place] [address] * Anti-islet cell antibody (09/19/2024 11:54 AM CDT) Pathologist [facility] Islet cell ab NEGATIVE NEGATIVE [facility], Comment: This test was developed and its analytical performance characteristics have been determined by [employer]. It has not been cleared or approved by the FDA. This assay has been validated pursuant to the CLIA regulations and is used for clinical purposes. Blood 09/19/2024 11:5 4 AM CDT 09/19/2024 11:55 AM CDT Narrative [facility] - 09/26/2024 6:27 PM CDT FASTING:YES FASTING: YES Tl Cruz DO LAB BLOOD ORDERABLES Final Result Performing Organization Address [facility] de Phone Number [facility], [address] [place] [address] * (ABNORMAL) Glucose, fasting (09/19/2024 11:54 AM CDT) Pathologist [facility] Glucose 104(H) 65 - 99 mg/dL [facility] [facility] Comment: Fasting reference interval For someone without known diabetes, a glucose value between 100 and 125 mg/dL is consistent with prediabetes and should be confirmed with a follow-up test. 09/19/2024 11:5 4 AM CDT 09/19/2024 11:55 AM CDT Narrative [facility] - 09/26/2024 6:27 PM CDT FASTING:YES FASTING: YES Tl Cruz DO LAB BLOOD ORDERABLES Final Result Performing Organization Address [facility] Co de Phone Number [facility] [address] [place] [address] * (ABNORMAL) POCT hemoglobin A1c (09/13/2024 2:21 PM CDT) Hemoglobin A1C, POC 10.5(A) 4.0 - 5.6 % Blood 09/13/2024 2:21 PM CDT Tl Cruz DO POINT OF CARE TEST ORDERABL [...] by: Parul Serna M.D. us Silvia Tanner LITIGATION COORDINATOR IMG XR PROCEDURES Final Resul t * [...] AM CDT Narrative 08/30/2024 10:04 AM CDT [facility] Quantitative Echo Report [facility]'[address] [address] Patient Name: CHANNING SLOAN Study Type: Pediatric Echo Patient : 1980 Exam Date: 08/30/2024 Age: 43Y Exam Time: 6:51:00 AM Referring MD: DRAKE LUND Height: 168cm Weight: 75.6kg BSA: 1.85 m2 Sex: MALE BP: 114/77 Cnc Cutting Operator: Ghazala Roe. Stat.: Inpatient Room: 7421 Account:[id number] Indications for Study:Transcatheter placement of pulmonary valve [...] Procedure Note Rashel Eddy MD - 08/30/2024 [facility] Quantitative Echo Report One [address] [address] Patient Name: CHANNING SLOAN Study Type: Pediatric Echo Patient : 1980 Exam Date: 08/30/2024 Age: 43Y Exam Time: 6:51:00 AM Referring MD: DRAKE LUND Height: 168cm Weight: 75.6kg BSA: 1.85 m2 Sex: MALE BP: 114/77 Cnc Cutting Operator: Ghazala Roe. Stat.: Inpatient Room: [place] [address] Account:[id number] Indications for Study:Transcatheter placement of pulmonary valve [...] BPM [facility] Atrial Rate 77 BPM [facility] CO-Interval (MSEC) 222 ms [facility] QRS-Interval (MSEC) 146 ms [facility] QT-Interval (MSEC) 484 ms [facility] QTc 547 ms [facility] P [place] 67 degrees [facility] R [place] 151 degrees [facility] T [place] 76 degrees [facility] Diagnosis Sinus rhythm with 1st degree [...] Reyes Steele ([id number]) on 08/30/2024 9:57:31 AM [facility] 08/30/2024 6:56 AM CDT 08/30/2024 9:57 AM CDT us Silvia Tanner NP ECG ORDERABLES Final Result [facility] * ECG 12 lead (08/29/2024 4:04 PM CDT) Ventricular Rate EKG/Min 233 BPM [facility] Atrial Rate 241 BPM [facility] QRS-Interval (MSEC) 76 ms [facility] QT-Interval (MSEC) 184 ms [facility] QTc 362 ms [facility] R [place] 48 degrees [facility] T [place] -69 degrees [facility] Diagnosis Atrial flutter with variable conduction Low voltage QRS Abnormal ECG When compared with ECG of 20-JUN-2024 14:11, patient is no longer in sinus rhythm Confirmed by LEORA MOLINA M.D. ([id number]) on 08/22/2024 1:57:48 PM Also confirmed by LEORA MOLINA M.D. ([id number]), primer expeditor and drier Vee Valverde ([id number]) on 08/27/2024 8:06:18 AM [facility] 08/22/2024 10:1 1 AM CDT 08/27/2024 8:06 AM CDT us Silvia M. Tanner LITIGATION COORDINATOR ECG ORDERABLES Edited Result - Final [facility] * POCT glucose (08/29/2024 3:33 PM CDT) Glucose, POC 175 70 - 199 mg/dL Blood 08/29/2024 3:33 PM CDT 08/29/2024 3:33 PM CDT Austin Phan MD LAB POCT ORDERABLES - DEVICE Final Result [facility] [place] [address] * PEDIATRIC CARDIAC CATHETERIZATION (08/29/2024 2:48 PM CDT) Anatomical Region Laterality Modality X-Ray Angiograph y 08/29/2024 12:0 0 PM CDT Narrative 08/29/2024 4:15 PM CDT Pediatric Catheterization Patient Name: CHANNING SLOAN Study Type: Cath XA Patient : 1980 Exam Date: 08/29/2024 Age: 43Y Exam Time: 12:00:00 PM Referring MD: DULCE MARIA ARTHUR Height: 168cm Weight: 75.6kg BSA: 1.85 m2 Sex: MALE Account:[id number] CATH PROCEDURE: Procedure Description: Fluoro Time: 18.60 [...] AODsc 98 66 79 FINDINGS: SUMMARY: HISTORY: CHANNING SLOAN is a 43 yr old male with PA/IVS s/p biventricular repair. He has a surgically implanted bioprosthetic valve (25 mm Inspiris valve) in the pulmonary position. He has significant PI and presents for Nadege valve implantation. He is also known to be in atrial fib/flutter and will have a AZK and cardioversion if no thrombi are identified. PROCEDURE: After a full discussion of the risks and benefits of the procedure, reviewing the consent form with the patient, and answering all questions, Channing was brought to the cardiac catheterization laboratory [...] technique under ultrasound guidance and a 7F Qatari sheath was placed. Likewise the LFA was [...] sheath was then upsized to a 26 Qatari DrySeal sheath. During placement of the DrySeal [...] wire and positioned across the valve. The Juliette gold balloon was inflated to 12 atmospheres and the existing valve frame expanded. The Juliette balloon was then removed and replaced with [...] arterial sheath was upsized to a 5 Qatari prelude sheath and a Mynx vascular closure system was deployed in the arterial access site. A fbzprv-df-hefwl stitch was placed around the venous access site since 1 of the Perclose sutures had been inadvertently cut as mentioned previously. The remaining Perclose suture was tightened and as the sheath and wire removed the quinah-zl-yrfcy suture was also tightened. This achieved hemostasis. [...] patient underwent cardioversion with 75 joules with mandaen of normal sinus rhythm 3. Low cardiac [...] 7. A single Perclose suture in a tyntbx-cq-xjkag were applied to the left femoral vein [...] Nadege valve. STAFF: Interventionalist Austin Phan MD. Crime Prevention Worker Tech Maritza Acosta [employer] Circulating Nurse Alexa Schaeffer RN. Anesthesiologist Phoenix Fox MD. Assisting Cath Physician Volodymyr Cedillo MD. Signed 08/29/2024 04:15 PM Austin Phan MD Procedure Note Austin Phan MD - 08/29/2024 Pediatric Catheterization Patient Name: CHANNING SLOAN Study Type: Cath XA Patient : 1980 Exam Date: 08/29/2024 Age: 43Y Exam Time: 12:00:00 PM Referring MD: DULCE MARIA ARTHUR Height: 168cm Weight: 75.6kg BSA: 1.85 m2 Sex: MALE Account:[id number] CATH PROCEDURE: Procedure Description: Fluoro Time: 18.60 [...] AODsc 98 66 79 FINDINGS: SUMMARY: HISTORY: CHANNING SLOAN is a 43 yr old male [...] with the patient, and answering all questions, Channing was brought to the cardiac catheterization laboratory [...] technique under ultrasound guidance and a 7F Qatari sheath was placed. Likewise the LFA was [...] sheath was then upsized to a 26 Qatari DrySeal sheath. During placement of the DrySeal [...] wire and positioned across the valve. The Juliette gold balloon was inflated to 12 atmospheres and the existing valve frame expanded. The Juliette balloon was then removed and replaced with [...] arterial sheath was upsized to a 5 Qatari prelude sheath and a Mynx vascular closure system was deployed in the arterial access site. A wdzowd-dk-oeblw stitch was placed around the venous access site since 1 of the Perclose sutures had been inadvertently cut as mentioned previously. The remaining Perclose suture was tightened and as the sheath and wire removed the kqyjjf-ts-lxtyi suture was also tightened. This achieved hemostasis. [...] patient underwent cardioversion with 75 joules with mandaen of normal sinus rhythm 3. Low cardiac [...] 7. A single Perclose suture in a rvwpma-vl-xwjol were applied to the left femoral vein [...] Nadege valve. STAFF: Interventionalist Austin Phan MD. Crime Prevention Worker Tech [employer] Circulating Nurse Alexa Schaeffer RN. Anesthesiologist Phoenix [...] data was last revised 2023. POC Performer [id number] [facility] POC Device Number [id number] [facility] Blood 08/29/2024 2:44 PM CDT 08/29/2024 2:44 PM CDT Austin Phan MD LAB POCT ORDERABLES - DEVICE Final Result Performing Organization Address [facility] [place] [address] * (ABNORMAL) POCT Activated clotting time, low range (08/29/2024 1:57 PM CDT) Pathologist [facility] [place] ACT 237(H) 120 - 170 sec Comment: Interpetive Data Reference Ranges Not Established for a Pediatric Population. Current interpretive data was last revised 2023. POC Performer [id number] [facility] POC Device Number [id number] [facility] Blood 08/29/2024 1:57 PM CDT 08/29/2024 1:57 PM CDT Austin Phan MD LAB POCT ORDERABLES - DEVICE Final Result Performing Organization Address [facility] [place] [address] * (ABNORMAL) POCT Blood gas-hgb sat, cath (08/29/2024 1:47 PM CDT) [facility] O2 saturation freezer laboratory technician/or 48.4 % Carboxyhemoglob in, cath 1.3 0.0 - 2.9 % [facility] Hgb estimated 16.9 13.0 - 17.5 g/dL [facility] Methemoglobin, cath <1.0 <=1.9 % [facility] OxyHb 47.5(C) 90.0 - 95.0 % [facility] Specimen Source Manager Med Surg/OR LPA [facility] Blood 08/29/2024 1:47 PM CDT 08/29/2024 1:47 PM CDT Austin Phan MD LAB POCT ORDERABLES - DEVICE Final Result Performing Organization Address [facility] de Phone Number [facility] [place] [place] [address] * (ABNORMAL) POCT Blood gas-hgb sat, cath (08/29/2024 1:45 PM CDT) O2 saturation freezer laboratory technician/or 46.1 % Carboxyhemoglob in, cath 1.3 0.0 - 2.9 % [facility] Hgb estimated 16.8 13.0 - 17.5 g/dL [facility] Methemoglobin, cath <1.0 <=1.9 % [facility] OxyHb 45.2(C) 90.0 - 95.0 % [facility] Specimen Source Manager Med Surg/OR MPA [facility] Blood 08/29/2024 1:45 PM CDT 08/29/2024 1:45 PM CDT Austin Phan MD LAB POCT ORDERABLES - DEVICE Final Result Performing Organization Address [facility] Co de Phone Number [facility] [place] [address] * (ABNORMAL) POCT Blood gas-hgb sat, cath (08/29/2024 1:41 PM CDT) O2 saturation freezer laboratory technician/or 53.7 % Carboxyhemoglob in, cath 1.3 0.0 - 2.9 % [facility] Hgb estimated 16.4 13.0 - 17.5 g/dL [facility] Methemoglobin, cath <1.0 <=1.9 % [facility] OxyHb 52.8(C) 90.0 - 95.0 % [facility] Specimen Source Manager Med Surg/OR SVC [facility] Blood 08/29/2024 1:41 PM CDT 08/29/2024 1:41 PM CDT Austin Phan MD LAB POCT ORDERABLES - DEVICE Final Result Performing Organization Address [facility] Co de Phone Number [facility] [place] [address] * (ABNORMAL) POCT Blood gas-hgb sat, cath (08/29/2024 1:40 PM CDT) pH Manager Med Surg/OR 7.30(L) 7.35 - 7.45 PCO2 Manager Med Surg/OR 38 35 - 45 mmHg [facility] PO2 Manager Med Surg/OR 59(L) 83 - 108 mmHg [facility] CO2, total 20 20 - 30 mmol/L [facility] BE, freezer laboratory technician/or -7.1 mmol/L [facility] O2 saturation freezer laboratory technician/or 88.2 % [facility] Carboxyhemoglob in, cath 1.5 0.0 - 2.9 % [facility] Hgb estimated 16.6 13.0 - 17.5 g/dL [facility] Methemoglobin, cath <1.0 <=1.9 % [facility] OxyHb 86.6(L) 90.0 - 95.0 % [facility] Specimen Source Manager Med Surg/OR JUAN MANUEL [facility] Hct, POC 51.0 % [facility] Blood 08/29/2024 1:40 PM CDT 08/29/2024 1:40 PM CDT Austin Phan MD LAB POCT ORDERABLES - DEVICE Final Result [facility] [place] [address] * PEDIATRIC LYUDMILA TRANSESOPHAGEAL ECHO (ZAK) W LTD DOPPLER/CF (08/29/2024 1:12 PM CDT) Anatomical Region Laterality Modality Ultrasound 08/29/2024 12:1 4 PM CDT Narrative 08/29/2024 4:29 PM CDT [facility] [address] [place] [address] Transesophageal Echo Report ----- Patient Name: CHANNING SLOAN Study Type: ZAK Patient : 1980 Exam Date: 08/29/2024 Age: 43Y Exam Time: 12:14:00 PM Referring MD: DRAKE LUND Height: 168cm Weight: 76kg BSA: 1.86 m2 Sex: MALE BP: 73/54 Cnc Cutting Operator: Alex Montano Pat. 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 [place] [address] Transesophageal Echo Report ----- Patient Name: CHANNING SLOAN Study Type: ZAK Patient : 1980 Exam Date: 08/29/2024 Age: 43Y Exam Time: 12:14:00 PM Referring MD: DRAKE LUND Height: 168cm Weight: 76kg BSA: 1.86 m2 Sex: MALE BP: 73/54 Cnc Cutting Operator: Alex Montano Pat. 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.3 Procedures: CONGENITAL [...] PM Rashel Eddy MD us Silvia Tanner LITIGATION COORDINATOR CV ECHO PROCEDURES Final Resu lt * [...] ECG 12 lead (08/29/2024 10:36 AM CDT) [facility] Ventricular Rate EKG/Min 91 BPM [facility] Atrial Rate 250 BPM [facility] QRS-Interval (MSEC) 140 ms [facility] QT-Interval (MSEC) 478 ms [facility] QTc 587 ms [facility] R [place] 182 degrees [facility] T [place] -80 degrees [facility] Diagnosis Atrial flutter with variable A-V block Unable to accurately measure the QT interval Abnormal ECG When compared with ECG of 22-AUG-2024 10:11, No significant change was found Confirmed by fellow Shanel Hall do ([id number]) on 08/29/2024 10:45:57 AM I have personally reviewed the study and I agree with the above findings Confirmed by LEORA MOLINA M.D. ([id number]) on 08/29/2024 3:58:29 PM [facility] 08/29/2024 10:3 6 AM CDT 08/29/2024 3:58 PM CDT us Silvia Tanner LITIGATION COORDINATOR ECG ORDERABLES Final Result Performing Organization Address City/[facility] Co de Phone Number [facility] * ABO / Rh Confirmation Testing (08/29/2024 9:59 AM CDT) ABO/Rh Confirmation A Positive [facility] Blood 08/29/2024 9:59 AM CDT 08/29/2024 10:26 AM CDT us Austin Phan MD LAB BLOOD ORDERABLES Final Re sult Performing Organization Address City/[facility] Co de Phone Number [facility] [place] [address] [facility] * (ABNORMAL) CBC without differential (08/29/2024 9:59 AM CDT) WBC 5.60 3.80 - 9.90 K/cumm Hgb 17.6(H) 13.0 - 17.5 g/dL [facility] Hct 52.0(H) 38.9 - 50.3 % [facility] Plt 206 150 - 400 K/cumm [facility] MPV 12.0 9.1 - 12.3 fL [facility] RBC 5.69 4.30 - 5.80 M/cumm [facility] MCV 91.4 81.3 - 96.4 fL [facility] MCH 30.9 27.1 - 33.3 pg [facility] MCHC 33.8 32.3 - 35.7 g/dL [facility] RDW CV 14.0 11.1 - 14.9 % [facility] RDW SD 46.5 35.7 - 48.1 fL [facility] NRBC abs 0.00 0.00 - 0.01 K/cumm [facility] Blood 08/29/2024 9:59 AM CDT 08/29/2024 10:20 AM CDT us Silvia Tanner NP LAB BLOOD [place] [address] * Prepare RBC: 1 Units (08/29/2024 9:26 AM CDT) Units requested 1 Units requested Ready [facility] Unit Number [id number] Product code [id number] [facility] Blood Expiration Date [id number] [facility] Product Blood Type (for scanning) 5100 [facility] Product Blood Type OPOS [facility] Dispense Status DISPENSED [facility] Blood 08/29/2024 9:26 AM CDT 08/29/2024 9:25 AM CDT us Silvia Tanner NP BLOOD BANK PRODUCT ORDERABLES Final Result Performing Organization Address [facility] [place] [address] * eGFR (08/22/2024 11:55 AM CDT) eGFR [...] 5 AM CDT 08/22/2024 12:08 PM CDT us Silvia Tanner LITIGATION COORDINATOR LAB BLOOD ORDERABLES Final Re sult Performing Organization Address City/[facility]/ZIP Co de Phone Number [facility] [place] [place] [address] * ABO/Rh (08/22/2024 11:55 AM CDT) ABO/Rh A Positive Blood 08/22/2024 11:5 5 AM CDT 08/22/2024 12:33 PM CDT us Silvia Tanner NP LAB BLOOD BANK TEST ORDERABLE S Final Result Performing Organization Address [facility] [place] [address] * Crossmatch (08/22/2024 11:55 AM CDT) Crossmatch Compatible [facility] Unit number for crossmatch [id number] [facility] Blood 08/22/2024 11:5 5 AM CDT 08/22/2024 12:33 PM CDT Prince Blount MD LAB BLOOD BANK TEST ORDERABLES Final Result Performing Organization Address [facility] [place] [address] * Antibody screen (08/22/2024 11:55 AM CDT) Shaneka, indirect, Gel Interpretation Negative ABSC Blood 08/22/2024 11:5 5 AM CDT 08/22/2024 12:33 PM CDT Silvia Tanner LITIGATION COORDINATOR LAB BLOOD BANK TEST ORDERABLE S Final Result Performing Organization Address [facility] [place] [address] * (ABNORMAL) TSH (08/22/2024 11:55 AM CDT) Pathologist [facility] Thyroid Stimulating Hormone 5.86(H) 0.30 - 4.20 mcIUnit/mL Blood 08/22/2024 11:5 5 AM CDT 08/22/2024 12:08 PM CDT Silvia Tanner LITIGATION COORDINATOR LAB BLOOD ORDERABLES Final Re sult Performing Organization Address [facility] [place] [address] * T4, free (08/22/2024 11:55 AM CDT) Pathologist [facility] Free T4 1.51 0.90 - 1.70 ng/dL Blood 08/22/2024 11:5 5 AM CDT 08/22/2024 12:08 PM CDT Silvia Tanner LITIGATION COORDINATOR LAB BLOOD ORDERABLES Final Re sult Performing Organization Address [facility] [place] [address] * Basic metabolic panel (08/22/2024 11:55 AM CDT) Sodium 136 135 - 145 mmol/L Potassium, pl 4.5 3.3 - 4.9 mmol/L [facility] Chloride 105 97 - 110 mmol/L [facility] CO2 23 22 - 32 mmol/L [facility] Anion gap 8 2 - 15 mmol/L [facility] BUN 18 6 - 25 mg/dL [facility] Creatinine 1.05 0.80 - 1.30 mg/dL [facility] Glucose 136 70 - 199 mg/dL [facility] Comment: Interpretive Data Fasting glucose >/= 126 [...] classification and Diagnosis of Diabetes Diabetes Care 2021; 46: S19-S40. Current interpretive data was last revised 2022. Calcium 9.4 8.5 - 10.3 mg/dL [facility] Blood 08/22/2024 11:5 5 AM CDT 08/22/2024 12:08 PM CDT us Silvia Tanner NP LAB BLOOD ORDERABLES Final Re sult [facility] [place] [address] * XR Chest Pa Lateral 2 Views [...] by: More Medina M.D. us Silvia Tanner LITIGATION COORDINATOR IMG XR PROCEDURES Final Resul t * Hepatitis C antibody Blood (06/01/2024 8:58 AM CDT) Hep C Ab NON-REACTI VE NON-REACT [facility] Comment: HCV antibody was non-reactive. There is no laboratory evidence of HCV infection. In most cases, no further action is required. However, if recent HCV exposure is suspected, a test for HCV RNA (test code 74314) is suggested. For additional information please refer to http://education.[employer]/faq/SFU75w0 (This link is being provided for informational/ educational purposes only.) Blood 06/01/2024 8:58 AM CDT 06/01/2024 8:58 AM CDT Narrative [facility] - 06/02/2024 6:58 AM CDT FASTING:YES FASTING: YES Carol Quiñones NP LAB MICROBIOLOGY - GENE RAL ORDERABLES Final Result [facility] [address] [place] [address] * (ABNORMAL) Albumin Creatinine Ratio, Urine (06/01/2024 [...] AM CDT FASTING:YES FASTING: YES Carol Quiñones LITIGATION COORDINATOR LAB URINE ORDERABLES Fi nal Result [facility] [address] [place] [address] * (ABNORMAL) Lipid panel (06/01/2024 8:58 AM [...] LDL-C. Jovany EDGAR et al. LOVE. 2013;310(19): 6127-2731 (http://education.[employer]/faq/GPA489) Chol/HDL ratio 3.1 <5.0 (calc) [facility] [...] FASTING:YES FASTING: YES Carol Quiñones NP LAB BLOOD ORDERABLES Fi nal Result [facility] [address] [place] [address] * DIABETES EYE EXAM (03/26/2024) 03/26/2024 Historical Provider HEALTH MAINTENANCE Final Result from Last 3 Months or Most Recently Relevant to Health Maintenance Insurance [facility] [employer]ETNA SIGNATURE [facility] [employer] SIGNATURE Advance Directives For more information, please contact: [phone] Documents on File Type Date Recorded Patient Sap Senior Developer Expl anation Advance Directives and Livin g Will 08/22/2024 11:24 AM * Full Code (Latest Code Status on File) Date Activated Date Inactivated Comments 08/29/2024 9:22 AM 08/30/2024 10:21 PM * Full Code Date Activated Date Inactivated Comments 09/17/2022 2:44 PM 09/20/2022 10:47 PM Care Teams Program Admin Relationship Specialty Start Date End Date [place] [address] PCP - General Family Medicine 10/26/21 Cam Oliveira Jr., MD Consulting Physician Endocrinology Diabetes & Metabolism 08/06/21 More Mars MD Consulting Physician Pediatric Cardiology 08/06/21
[2024-10-08 12:23] VITALS: BP 119/88; PULSE 71; RESP 20; TEMP 36.4; O2SAT 96
--- NOTE | 2024-10-08 13:48 | ED_ITS ---
HPI - Abdominal Pain General Chief Complaint: Abdominal Pain <Isabel Taylor APRN - Last Filed: 10/08/24 13:50> Stated Complaint: R sided abd pain <Isabel Taylor APRN - Last Filed: 10/08/24 13:50> Time Seen by Provider: 10/08/24 13:30 <Isabel Taylor APRN - Last Filed: 10/08/24 13:50> Focused HPI: Patient is a 43-year-old male who presents to the ER with complaints right upper and lower abdominal pain. He reports his pain started abruptly around 2:00 a.m. this morning. Patient reports the pain has been so bad that he has thrown up x4. He describes the pain as ?sharp. 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 He denies any current chest pain, shortness of breath, or recent fevers. GENERAL: Ill-appearing, well-nourished, and in mild distress d/t pain. HEAD: Normocephalic, atraumatic. CHEST: Clear to auscultation. ?No respiratory distress. HEART: Regular rate and rhythm.? NEURO: ?Alert and oriented x3. Patient screened in triage and initial orders placed.? ?Additional care and disposition to be based upon?diagnostic testing and treatment. <Isabel Taylor APRN - Last Filed: 10/08/24 13:50> History of Present Illness HPI narrative: I agree with the above HPI <Orestes Oswald MD - Last Filed: 10/08/24 19:21> Related Data Home Medications: Home Medications ?Medication ?Instructions ?Recorded ?Confirmed ?Last Taken ?Type Bumex 12/27/21 Unknown History Novolog Flexpen U-100 Insulin 12/27/21 Unknown History atorvastatin 20 mg tablet 20 mg DAILY 12/27/21 12/27/21 Unknown History blood-glucose sensor (Dexcom G6 12/27/21 12/27/21 Unknown History Sensor device) blood-glucose transmitter (Dexcom 12/27/21 12/27/21 Unknown History G6 Transmitter device) digoxin 125 mcg (0.125 mg) tablet 125 mcg DAILY 12/27/21 12/27/21 Unknown History metoprolol succinate 25 mg 25 mg PO BID 12/27/21 12/27/21 Unknown History tablet,extended release 24 hr pantoprazole 40 mg tablet,delayed 40 mg PO DAILY 12/27/21 12/27/21 Unknown History release rivaroxaban 20 mg tablet (Xarelto) 20 mg DAILY 12/27/21 12/27/21 Unknown History spironolactone 25 mg tablet 25 mg DAILY 12/27/21 12/27/21 Unknown History <Isabel Taylor APRN - Last Filed: 10/08/24 13:50> Allergies/Adverse Reactions: Allergies Allergy/AdvReac Type Severity Reaction Status Date / Time No Known Allergies Allergy Verified 10/08/24 14:13 <Isabel Taylor APRN - Last Filed: 10/08/24 13:50> Review of Systems 2 Review of Systems: All systems reviewed & are unremarkable except as noted in HPI and below <Orestes Oswald MD - Last Filed: 10/08/24 19:21> PMFSH Past Medical History Medical History: Medical History (Updated 10/08/24 @ 17:25 by Orestes Oswald MD) Congenital heart disease <Isabel Taylor APRN - Last Filed: 10/08/24 13:50> Surgical History Surgical History: Surgical History (Updated 07/16/24 @ 15:56 by Ketty Gordon MA) H/O removal of cyst <Isabel Taylor APRN - Last Filed: 10/08/24 13:50> Family History Family History: Family History (Updated 09/28/24 @ 08:26 by Marielle Jacobs RN) Mother Diabetes mellitus Grandparent Diabetes mellitus Other Diabetes mellitus <Isabel Taylor APRN - Last Filed: 10/08/24 13:50> Social History Social History: Social History (Updated 07/16/24 @ 16:03 by Ketty Gordon MA) Smoking status: Never smoker Alcohol intake: current Alcohol use details: occasionally Substance use: never Substance use type: does not use <Isabel Taylor APRN - Last Filed: 10/08/24 13:50> Exam 2 Narrative: APPEARANCE: Well appearing, no pain, no distress, well-nourished. HEAD: normocephalic, atraumatic. EYES: PERRLA/EOMI, conjunctivae clear. NOSE: Normal no drainage EARS:TMS clear with good light reflex. THROAT: Pharynx clear, no exudate. NECK: Supple. No adenopathy, no masses. RESPIRATORY: Airway patent, respirations nonlabored. Clear to auscultation bilaterally, no rales, rhonchi, wheezing. CARDIOVASCULAR: Regular rate and rhythm without murmurs rubs or gallops. ABDOMINAL: Right lower quadrant tenderness to palpation MUSCULOSKELETAL: Moves all extremities. Strength/ROM intact, No edema, No calf tenderness. NEURO: Alert. Cranial nerves II through XII intact. Good gait. Good coordination SKIN: Warm, dry. Normal Color <Orestes Oswald MD - Last Filed: 10/08/24 19:21> Course Vital Signs Vital signs: Vital Signs Temperature 97.6 F 10/08/24 12:23 Pulse Rate 71 10/08/24 12:23 Respiratory Rate 20 10/08/24 12:23 Blood Pressure 119/88 10/08/24 12:23 Pulse Oximetry 96 10/08/24 12:23 Oxygen Delivery Room Air 10/08/24 12:23 Temperature 98.4 F 10/08/24 17:49 Pulse Rate 87 10/08/24 17:49 Respiratory Rate 162 H 10/08/24 17:49 Blood Pressure 101/81 10/08/24 17:49 Pulse Oximetry 95 10/08/24 17:49 Oxygen Delivery Room Air 10/08/24 12:23 <Isabel Taylor APRN - Last Filed: 10/08/24 13:50> Vital Signs Temperature 97.6 F 10/08/24 12:23 Pulse Rate 71 10/08/24 12:23 Respiratory Rate 20 10/08/24 12:23 Blood Pressure 119/88 10/08/24 12:23 Pulse Oximetry 96 10/08/24 12:23 Oxygen Delivery Room Air 10/08/24 12:23 Temperature 98.4 F 10/08/24 17:49 Pulse Rate 87 10/08/24 17:49 Respiratory Rate 162 H 10/08/24 17:49 Blood Pressure 101/81 10/08/24 17:49 Pulse Oximetry 95 10/08/24 17:49 Oxygen Delivery Room Air 10/08/24 12:23 <Orestes Oswald MD - Last Filed: 10/08/24 19:21> MDM - Abdominal Pain MDM Narrative Medical decision making narrative: 43-year-old male presents emergency department for evaluation for lower abdominal pain. Patient is currently afebrile to the leukocytosis hemoglobin of 17.6. Chemistry he has had no significant abnormalities with no significant elevation in his AST ALT alk falls or lipase. Mild elevation in T bili. No evidence of urinary tract infection. CT scan did show some gallbladder wall thickening and ultrasound was ordered as well. Ultrasound shows no evidence of cholecystitis or cholelithiasis. On re-evaluation patient states he does feel improved. Patient was provided medications for pain control. Patient was encouraged of close follow-up with his primary care physician for additional outpatient gallbladder testing such as a HIDA scan. Patient family are comfortable the plan for discharge and close follow-up. <Orestes Oswald MD - Last Filed: 10/08/24 19:21> Differential Diagnosis Differential diagnosis: Likely abdominal pain, acute appendicitis, calculus of kidney, constipation, diverticulitis, gastroenteritis, pancreatitis and small bowel obstruction <Orestes Oswald MD - Last Filed: 10/08/24 19:21> Lab Data Attestation: I reviewed the patient's lab results. <Orestes Oswald MD - Last Filed: 10/08/24 19:21> Result diagrams: 10/08/24 13:45 10/08/24 13:45 <Isabel Taylor APRN - Last Filed: 10/08/24 13:50> Labs: Lab Results 10/08/24 10/08/24 10/08/24 Range/Units 13:45 13:51 15:42 WBC 9.5 (4.5-10.0) K/mm3 RBC 5.76 (4.6-6.20) M/mm3 Hgb 17.6 D (14.0-18.0) g/dL Hct 53.7 H (42.0-52.0) % MCV 93.2 (80-100) fl MCH 30.6 (26-34) pg MCHC 32.8 (32-36) g/dl RDW 13.4 (11.5-14.5) % Plt Count 181 (150-375) k/mm3 MPV 12.0 H (7.4-10.4) fl Immature Gran % (Auto) 0.3 (0-0.5) % Neut % (Auto) 81.6 H (45.5-73.1) % Lymph % (Auto) 11.2 L (18.3-44.2) % [place] % (Auto) 5.2 (2.6-8.5) % Eos % (Auto) 1.3 (0-4.4) % Baso % (Auto) 0.4 (0.2-1.2) % Lymph # (Auto) 1.06 (0.9-3.2) K/mm3 [place] # (Auto) 0.5 (0.1-0.6) K/mm3 Eos # (Auto) 0.1 (0-0.3) K/mm3 Baso # (Auto) 0.0 (0.0-0.1) K/mm3 Abs Immat Gran (auto) 0.03 (0.00-0.031) K/mm3 Absolute Neuts (auto) 7.8 H (1.3-6.7) K/mm3 Absolute Nucleated RBC 0.000 (0.0-0.012) K/mm3 Nucleated RBC % 0.0 (0.0-0.2) % Sodium 139 (137-145) mmol/L Potassium 5.8 H (3.4-5.0) mmol/L Chloride 104 (98-107) mmol/L Carbon Dioxide 24 (22-30) mmol/L Anion Gap 11 (4-12) mmol/L BUN 16 (9-20) mg/dL Creatinine 0.92 (0.7-1.3) mg/dL Estim Creat Clear Calc 84 ml/min Estimated GFR > 60 (59 - ) Glucose 125 H (65-110) mg/dL POC Capillary Glucose 94 (65-105) mg/dl Calcium 9.8 (8.4-10.2) mg/dL Total Bilirubin 1.6 H (0.2-1.3) mg/dL AST 43 (17-59) U/L ALT 51 H (6-50) U/L Alkaline Phosphatase 99 (38-126) U/L Total Protein 8.6 H (6.3-8.2) g/dL Albumin 4.8 (3.5-5.1) g/dL Lipase 93 (23-300) U/L Urine Color Yellow (Yellow) Urine Appearance Clear (Clear) Urine pH 5.0 (5.0-9.0) Ur Specific [place] 1.037 H (1.001-1.035) Urine Protein 2+ H (Negative) mg/dL Urine Glucose (UA) 3+ H (Negative) mg/dL Urine Ketones 2+ H (Negative) mg/dL Ur Blood (Man) Trace (Negative) Urine Nitrate Negative (Negative) Urine Bilirubin Negative (Negative) Urine Urobilinogen 1.0 (<2.0) mg/dL Leukocyte Esterase Rfl Negative (Negative) CECELIA/UL Urine RBC 0-2 (0-2) /hpf Urine WBC 0-5 (0-3) /hpf Ur Squamous Epith Cells None seen (Few) /hpf Urine Bacteria None seen /hpf Urine Casts 0-2 <Isabel Taylor, DIRECTOR TRADE - Last Filed: 10/08/24 13:50> Lab Results 10/08/24 10/08/24 10/08/24 Range/Units 13:45 13:51 15:42 WBC 9.5 (4.5-10.0) K/mm3 RBC 5.76 (4.6-6.20) M/mm3 Hgb 17.6 D (14.0-18.0) g/dL Hct 53.7 H (42.0-52.0) % MCV 93.2 (80-100) fl MCH 30.6 (26-34) pg MCHC 32.8 (32-36) g/dl RDW 13.4 (11.5-14.5) % Plt Count 181 (150-375) k/mm3 MPV 12.0 H (7.4-10.4) fl Immature Gran % (Auto) 0.3 (0-0.5) % Neut % (Auto) 81.6 H (45.5-73.1) % Lymph % (Auto) 11.2 L (18.3-44.2) % [place] % (Auto) 5.2 (2.6-8.5) % Eos % (Auto) 1.3 (0-4.4) % Baso % (Auto) 0.4 (0.2-1.2) % Lymph # (Auto) 1.06 (0.9-3.2) K/mm3 [place] # (Auto) 0.5 (0.1-0.6) K/mm3 Eos # (Auto) 0.1 (0-0.3) K/mm3 Baso # (Auto) 0.0 (0.0-0.1) K/mm3 Abs Immat Gran (auto) 0.03 (0.00-0.031) K/mm3 Absolute Neuts (auto) 7.8 H (1.3-6.7) K/mm3 Absolute Nucleated RBC 0.000 (0.0-0.012) K/mm3 Nucleated RBC % 0.0 (0.0-0.2) % Sodium 139 (137-145) mmol/L Potassium 5.8 H (3.4-5.0) mmol/L Chloride 104 (98-107) mmol/L Carbon Dioxide 24 (22-30) mmol/L Anion Gap 11 (4-12) mmol/L BUN 16 (9-20) mg/dL Creatinine 0.92 (0.7-1.3) mg/dL Estim Creat Clear Calc 84 ml/min Estimated GFR > 60 (59 - ) Glucose 125 H (65-110) mg/dL POC Capillary Glucose 94 (65-105) mg/dl Calcium 9.8 (8.4-10.2) mg/dL Total Bilirubin 1.6 H (0.2-1.3) mg/dL AST 43 (17-59) U/L ALT 51 H (6-50) U/L Alkaline Phosphatase 99 (38-126) U/L Total Protein 8.6 H (6.3-8.2) g/dL Albumin 4.8 (3.5-5.1) g/dL Lipase 93 (23-300) U/L Urine Color Yellow (Yellow) Urine Appearance Clear (Clear) Urine pH 5.0 (5.0-9.0) Ur Specific [place] 1.037 H (1.001-1.035) Urine Protein 2+ H (Negative) mg/dL Urine Glucose (UA) 3+ H (Negative) mg/dL Urine Ketones 2+ H (Negative) mg/dL Ur Blood (Man) Trace (Negative) Urine Nitrate Negative (Negative) Urine Bilirubin Negative (Negative) Urine Urobilinogen 1.0 (<2.0) mg/dL Leukocyte Esterase Rfl Negative (Negative) CECELIA/UL Urine RBC 0-2 (0-2) /hpf Urine WBC 0-5 (0-3) /hpf Ur Squamous Epith Cells None seen (Few) /hpf Urine Bacteria None seen /hpf Urine Casts 0-2 <Orestes Oswald MD - Last Filed: 10/08/24 19:21> Imaging Data Radiologist's impression: ITS Impressions Abdomen/Pelvis CT 10/08/24 14:30 IMPRESSION: Gallbladder distention with trace surrounding inflammatory change, an additional findings suggesting a possible impacted stone for which focused ultrasound may be performed for confirmation. Heterogeneous enhancement of the liver, which is not enlarged. Left inguinal hernia. Abdomen Ultrasound 10/08/24 15:41 IMPRESSION: Limited evaluation of the pancreas secondary to overlying bowel gas. Heterogeneous echogenicity within the liver. Abnormal waveform within the portal vein with appropriate direction of flow. No gallbladder stones. The gallbladder is distended with wall thickening. <Isabel Taylor APRN - Last Filed: 10/08/24 13:50> ITS Impressions Abdomen/Pelvis CT 10/08/24 14:30 IMPRESSION: Gallbladder distention with trace surrounding inflammatory change, an additional findings suggesting a possible impacted stone for which focused ultrasound may be performed for confirmation. Heterogeneous enhancement of the liver, which is not enlarged. Left inguinal hernia. Abdomen Ultrasound 10/08/24 15:41 IMPRESSION: Limited evaluation of the pancreas secondary to overlying bowel gas. Heterogeneous echogenicity within the liver. Abnormal waveform within the portal vein with appropriate direction of flow. No gallbladder stones. The gallbladder is distended with wall thickening. <Orestes Oswald MD - Last Filed: 10/08/24 19:21> Discharge Plan Discharge Clinical Impression: Abdominal pain <Isabel Taylor APRN - Last Filed: 10/08/24 13:50> Patient Disposition: Home <Isabel Taylor APRN - Last Filed: 10/08/24 13:50> Condition: Stable <Isabel Taylor APRN - Last Filed: 10/08/24 13:50> Instructions: Antibiotic Form, Biliary Colic (ED), Abdominal Pain (ED) <Isabel Taylor APRN - Last Filed: 10/08/24 13:50> Additional Instructions: Follow a clear liquid diet for the next 1-3 days. [place] as needed for pain control. Zofran as needed for nausea control. Have close follow-up with your primary care physician. You may need further evaluation of your gallbladder as outpatient including a HIDA scan. If you have any worsening symptoms then please call or return to the emergency department. <Isabel Taylor APRN - Last Filed: 10/08/24 13:50> Patient Language: Slovenian <Isabel Taylor APRN - Last Filed: 10/08/24 13:50> Prescriptions: New hydrocodone-acetaminophen 5-325 mg tablet 1 tablet PO Q12H PRN (Reason: pain) Qty: 14 0RF ondansetron 4 mg tablet,disintegrating 4 mg PO Q8H PRN (Reason: nausea and vomiting) Qty: 14 0RF No Action atorvastatin 20 mg tablet 20 mg DAILY spironolactone 25 mg tablet 25 mg DAILY pantoprazole 40 mg tablet,delayed release (DR/EC) 40 mg PO DAILY digoxin 125 mcg (0.125 mg) tablet 125 mcg DAILY metoprolol succinate 25 mg tablet extended release 24 hr 25 mg PO BID (DME) Dexcom G6 Sensor Device MISCELLANEOUS (DME) Dexcom G6 Transmitter Device MISCELLANEOUS Xarelto 20 mg tablet 20 mg DAILY Bumex Novolog Flexpen U-100 Insulin <Isabel Taylor APRN - Last Filed: 10/08/24 13:50> Follow-up/Referrals: Ileana,MD [place] [Primary Care Provider] - <Isabel Taylor APRN - Last Filed: 10/08/24 13:50>
[2024-10-08 13:56] LABS: Hematocrit 53.7 % (42.0-52.0); Hemoglobin 17.6 g/dL (14.0-18.0); Immature Granulocyte Percent A 0.3 % (0-0.5); Lymphocytes Absolute Auto 1.06 K/mm3 (0.9-3.2); Mean Corpuscular HGB Conc 32.8 g/dl (32-36); Mean Corpuscular Hemoglobin 30.6 pg (26-34); Mean Corpuscular Volume 93.2 fl (80-100); Nucleated Red Blood Cells Absolute Auto 0.000 K/mm3 (0.0-0.012); Nucleated Red Blood Cells Perc 0.0 % (0.0-0.2); Platelet Count Result 181 k/mm3 (150-375); Red Blood Count 5.76 M/mm3 (4.6-6.20); White Blood Count 9.5 K/mm3 (4.5-10.0)
[2024-10-08 14:06] LABS: Add Urine Microscopic? YES; Appearance Urine Clear (Clear); Glucose Urine UA 3+ mg/dL (Negative); Leukocyte Esterase Ur Negative LEU/UL (Negative); Nitrate Urine Negative (Negative); Non Pathogenic Casts 0-2; Specific Grav Ur 1.037 (1.001-1.035)
[2024-10-08 14:13] VITALS: BP 128/85; PULSE 72; RESP 22; O2SAT 100
[2024-10-08 14:14] LABS: Alanine Aminotransferase 51 U/L (6-50); Albumin Level 4.8 g/dL (3.5-5.1); Alkaline Phosphatase 99 U/L (38-126); Anion Gap 11 mmol/L (4-12); Aspartate Amino Transferase 43 U/L (17-59); Bilirubin,Total 1.6 mg/dL (0.2-1.3); Blood Urea Nitrogen 16 mg/dL (9-20); Calcium 9.8 mg/dL (8.4-10.2); Carbon Dioxide 24 mmol/L (22-30); Chloride 104 mmol/L (98-107); Estimated CRCL calculation 84 ml/min; Estimated Glomerular Filt Rate > 60; Glucose 125 mg/dL (65-110); Lipase 93 U/L (23-300); Potassium 5.8 mmol/L (3.4-5.0); Sodium 139 mmol/L (137-145); Total Protein 8.6 g/dL (6.3-8.2)
--- OUTSIDE RECORDS SUMMARY | 2024-10-08 15:11 | XMS_ITS | Encounter Summary ---
Author Organization [facility] Address [address] [place] [address] Phone Care Team Providers Care It Support Engineer Name Role Phone Referral, Self Primary Care Provider Unavailabl e No, Physician Primary Care Provider Roxanne Meza MD, Cam Ballard Unavailable More Mars MD Unavailable [phone] [place] Tejeda MD Primary Care Provider [phone] Encounter Details Date Type Department Care Team (Late st Contact Info) Description 11/19/2020 Telephone [facility] Cardiology [facility] Advanced Medicine [address]th [place] [address] [place] [address] More Mars MD [address] [place] [address] Social History Tobacco Use Types [...] documented as of this encounter Care Teams It Support Engineer Relationship Specialty Start Date End Date Referral, Self PCP - General 08/21/20 07/13/21 No, Physician PCP - General 07/14/21 10/25/21 [place] Tejeda MD [address] [place] [address] PCP - General Family Medicine 10/26/21 Cam Oliveira Jr., MD Consulting Physician Endocrinology Diabetes & Metabolism 08/06/21 More Mars MD Consulting Physician Pediatric Cardiology 08/06/21 documented as of this encounter
--- OUTSIDE RECORDS SUMMARY | 2024-10-08 15:12 | XMS_ITS | Encounter Summary ---
Author Organization [facility] Address [address] [place] [address] Phone Care Team Providers Care Chart Picker Name Role Phone Roxanne Meza MD, Cam Ballard Unavailable More Mars MD Unavailable [phone] [place] Tejeda MD Primary Care Provider [phone] Reason for Visit * Cardiology (Routine) - [...] Monitor More Mars MD Phone: tel: fax: [facility] (All Locations) Referral ID Status Reason Start Date Expiration Date Visits Re quested Visits Authorized [id number] Closed 09/14/2023 10/13/2024 1 1 Encounter Details Date Type Department Care Team (Late st Contact Info) Description 09/14/2023 4:00 PM CDT Hospital Encounter [facility] Pediatric Cardiology [facility] [address] [place] [id number] Social History Tobacco Use Types Packs/Day Years [...] often do you attend chur ch or worship services? Never 09/28/2022 Do you belong to any clubs o r organizations such as religious groups, unions, fraternal or athletic groups, or [...] staff should administer the PHQ-9) 0 05/29/2024 [facility] - Occupational [...] us More Mars MD [facility] [place] OCEDURES Final Result documented in this encounter Visit Diagnoses Not on filedocumented in this encounter Care Teams Chart Picker Relationship Specialty Start Date End Date [place] Tejeda MD [address] [place] [address] PCP - General Family Medicine 10/26/21 Cam Oliveira Jr., MD Consulting Physician Endocrinology Diabetes & Metabolism 08/06/21 More Mars MD Consulting Physician Pediatric Cardiology 08/06/21 documented as of this encounter
--- OUTSIDE RECORDS SUMMARY | 2024-10-08 15:12 | XMS_ITS | Referral Summary ---
Author Organization [facility] Address [address] [place] [address] Care Team Providers Care Rock Climbing Team Member Name Role Phone Roxanne Meza MD, Cam Ballard Unavailable More Mars MD Unavailable Phoenix Colon MD Primary Care Provider [phone] Encounters Date Type Department Care Team Description 09/27/2024 Results Follow-Up [facility] at [address] [address] Tl Cruz DO GELY-65 autoantibody, ZINC TRANSPORTER 8 (ZnT8) ANTIBODY, Anti-islet cell antibody, Additional followed-up results: 2 09/13/2024 2:30 PM CDT Office Visit [facility] at [address] [address] Tl Cruz DO Type 2 diabetes mellitus with hyperglycemia, with long-term current use of insulin (HCC) (Primary Dx) 09/10/2024 Orders Only [facility] Cardiology 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); Prosthetic pulmonary valve insufficiency; Chronic systolic dysfunction of right ventricle; Status post pulmonary valve replacement with bioprosthetic valve; Elevated right ventricular end-diastolic pressure; Low cardiac output syndrome (HCC); S/P transcatheter replacement of pulmonary valve 09/05/2024 Orders Only [facility] Pediatric Cardiology [facility] 2nd [place] [address] [place] [address] Melinda Benavides 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); Status post pulmonary valve replacement with bioprosthetic valve 09/05/2024 Orders Only [facility] Pediatric Cardiology [facility] 2nd [place] [address] [place] [address] Maylin Orellana RN Chronic systolic dysfunction of right ventricle (Primary Dx); S/P transcatheter replacement of pulmonary valve 09/04/2024 Orders Only [facility] Pediatric Cardiology [facility] 2nd [place] [address] [place] [address] Danica Guaman RN 08/29/2024 9:13 AM CDT - 08/30/2024 4:00 PM CDT Hospital Encounter [facility] [address] [place] [address] Austin Phan MD Orr, William Brinson, MD Pulmonary atresia with intact ventricular septum; Status post pulmonary valve replacement with bioprosthetic valve; Nonrheumatic pulmonary valve insufficiency; Chronic congestive heart failure with right ventricular diastolic dysfunction (HCC); Elevated right ventricular end-diastolic pressure Discharge Disposition: Discharge to home or self care 08/29/2024 12:05 PM CDT - 08/29/2024 4:10 PM CDT Surgery [facility] [place] [address] Austin Phan MD Pediatric Cardiac Catheterization 08/29/2024 12:18 PM CDT Anesthesia Event [facility] [place] [address] Phoenix Fox MD Bowman, Tammy M., NP 08/22/2024 10:30 AM CDT - 08/22/2024 11:59 PM CDT Hospital Encounter [facility] Pediatric Cardiology [facility] Heart Station [address] [place] [address] Atrial fibrillation and flutter (HCC) Discharge Disposition: Discharge to home or self care 08/22/2024 11:45 [place] [address] Atrial fibrillation and flutter (HCC); Adult congenital heart disease; Chronic systolic dysfunction of right ventricle; Elevated right ventricular end-diastolic pressure; Prosthetic pulmonary valve insufficiency; Pulmonary atresia with intact ventricular septum; Status post pulmonary valve replacement with bioprosthetic valve; Chronic anticoagulation on Xarelto 08/22/2024 9:25 AM CDT - 08/22/2024 11:59 PM CDT Hospital Encounter [facility] [place] [address] Atrial fibrillation and flutter (HCC); Adult congenital heart disease; Chronic systolic dysfunction of right ventricle; Elevated right ventricular end-diastolic pressure; Prosthetic pulmonary valve insufficiency; Pulmonary atresia with intact ventricular septum; Status post pulmonary valve replacement with bioprosthetic valve; Chronic anticoagulation on Xarelto Discharge Disposition: Discharge to home or self care 08/22/2024 1:30 PM CDT Pre-Admission Testing [facility] [place] [address] 08/22/2024 7:30 AM CDT Pre-Admission Testing [facility] Pre[facility] [address] [place] [address] 08/21/2024 Telephone [facility] [place] [address] Silvia Tanner NP 08/20/2024 Orders Only [facility] Pediatric Cardiology [facility] [address]nd [place] [address] [place] [address] Melinda Benavides Atrial fibrillation and flutter (HCC) (Primary Dx) 07/16/2024 Telephone [facility] Pediatric Cardiology [facility] 2nd [place] [address] [place] [address] Maylin Orellana RN from Last 3 Months Allergies No known active allergies Medications glucagon (glucagon) 1 mg kit Use as directed for low blood sugar. 1 kit Active blood-glucose meter (OneTouch Verio Meter) [facility] 1 each 4 (four) times a day [...] 369 each 3 Active T:Slim X2 Control-IQ [facility] [place] [place] USE DIRECTED 1 each 024 Active amoxicillin [...] valve replacement with bioprosthetic valve,Nonrheumatic pulmonary valve insufficiency,Public Health Inspector yajaira congestive heart failure with right ventricular [...] coma, with long-term current use of insulin ([facility]),Type 2 diabetes mellitus without complication, without long-term current use of insulin ([facility]) Inject 20 Units under the skin daily 18 mL 3 023 2024 Discontinued insulin lispro (HumaLOG) 100 unit/mL vial for injectionIndicatio ns:Type 2 diabetes mellitus with hypoglycemia without coma, with long-term current use of insulin ([facility]) Use with insulin pump, TDD 50 units 50 mL 3 024 2024 Discontinued blood-glucose transmitter (Dexcom G6 Transmitter) deviceIndications: Type 2 diabetes mellitus with hypoglycemia without coma, with long-term current use of insulin ([facility]) Use as directed to check blood [...] AM CDT): Referring to general surgery at [facility] for excision. 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 Continue current medication. Acute idiopathic gout of multiple sites 04/28/19 Assessment & Plan (04/28/2023 4:49 PM BARREL LATHE OPERATOR): Stable, well controlled; patient reports occasional flares; [...] 03/24/2022 Assessment & Plan (04/28/2023 4:49 PM BARREL LATHE OPERATOR): Stable, well controlled; patient was not able to start CPAP; patient reports improved sleep quality; less daytime sleepiness; will continue to monitor Mood disorder 10/27/2021 Assessment & Plan (04/28/2023 4:49 PM BARREL LATHE OPERATOR): Stable well controlled; no major issues; patient [...] flutter afterwards. >>OVERVIEW FOR ATRIAL FLUTTER (CMS/HCC) ([facility]) WRITTEN ON 10/19/2021 10:37 AM BY TIM VALENTE Added automatically from request for surgery [id number] Assessment & Plan (05/29/2024 10:27 AM CDT): Normal sinus rhythm today in office, continue sotalol prescribed by Dr. Carey. Uses Xarelto for anticoagulation. Assessment & Plan (05/19/2023 9:22 AM BARREL LATHE OPERATOR): He is doing well on sotalol with limited AF recurrence in setting of COVID QT interval stable, QTc 487 ms Continue sotalol 120 mg BID BMP today Continue Xarelto for stroke risk reduction Assessment & Plan (04/28/2023 12:43 PM BARREL LATHE OPERATOR): >>ASSESSMENT AND PLAN FOR ATRIAL FLUTTER (CMS/HCC) ([facility]) WRITTEN ON 11/22/2021 8:47 PM BY PHOENIX COLON MD Stable, s/p cardioversion, currently in NSR Assessment & Plan (04/28/2023 12:43 PM BARREL LATHE OPERATOR): >>ASSESSMENT AND PLAN FOR ATRIAL FIBRILLATION (CMS/HCC) ([facility]) WRITTEN ON 10/27/2021 4:56 PM BY PHOENIX COLON MD EKG performed today; rate of 100, irregularly irregular, atrial fibrillation flutter Possible right bundle-branch block and right axis deviation QRS complex near Assessment & Plan (04/28/2023 12:43 PM BARREL LATHE OPERATOR): >>ASSESSMENT AND PLAN FOR ATRIAL FIBRILLATION (CMS/HCC) ([facility]) WRITTEN ON 09/28/2022 1:29 PM BY PHOENIX COLON MD Stable, and regular rate and rhythm today; continue sotalol 120 mg b.i.d.; Xarelto 20 mg daily Assessment & Plan (04/28/2023 12:43 PM BARREL LATHE OPERATOR): >>ASSESSMENT AND PLAN FOR ATRIAL FIBRILLATION (CMS/HCC) ([facility]) WRITTEN ON 10/29/2022 2:19 PM BY [...] 01/20/2021 Assessment & Plan (05/19/2023 9:22 AM BARREL LATHE OPERATOR): 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 male presenting to [facility] bundle tier and labeler for transcatheter pulmonary valve placement. His previsit [...] Diathermy procedures, the CGM sensor, transmitter, and impression printer must be removed prior to the procedure. -Enter POCT glucose, CGM order in [facility] -CGM glucose value can be used for [...] diabetes. Assessment & Plan (04/28/2023 4:48 PM BARREL LATHE OPERATOR): Not well controlled; last A1c elevated at [...] 05/29/2024 Assessment & Plan (04/13/2024 10:15 AM BARREL LATHE OPERATOR): Acute nodule in nostril with some surrounding [...] Refused),01/03/2022,11/12/2021(Deferre d: Patient Refused),10/26/2021(Deferred: Not available from office machine mechanic),12/12/2020(Deferred: Patient Refused) Social History Tobacco Use Types [...] week 09/28/2022 How often do you attend [facility] or anabaptism services? Never 09/28/2022 Do you belong to any clubs o r organizations such as bahai groups, unions, fraternal or athletic groups, or [...] staff should administer the PHQ-9) 0 05/29/2024 [facility] Occupat ional [facility] - Occupational Stress Questionnaire Answer Date Recorded [...] place to sleep or slept in a detention (including now)? No 09/28/2022 PHQ-9 Answer Date [...] on file Medical Devices Implanted Type Area Life Consultant Device Identifier Shelf Expiration Date Model / Serial / Lot Mesh Mesh Abdomen Shunt Implanted:Qty: 2 Shunt Arterial Stent Implanted:Qty: 1 Stent Coronary Artery [employer] Closure Repair Femoral Artery Suture Mediated Perclose Prostyle 77156-95 - [id number] Implanted:Qty: 1 on 08/29/2024 by Austin Phan MD at [facility] [employer] 06/11/2026 [id number] / / [id number] [employer] System Closure Repair Femoral Artery Suture Mediated Perclose Prostyle 93391-55 - [id number] Implanted:Qty: 1 on 08/29/2024 by Austin Phan MD at [facility] [employer] 07/11/2026 [id number] / / [id number] [employer] Nadege 3 29mm Transcatheter Aortic Valve [id number] - [id number] - [id number] Implanted:Qty: 1 on 08/29/2024 by Austin Phan MD at [facility] [employer] 05/03/2026 [id number] / [id number] / Access Closure Inc Device 10ml 5fr Closure Mynx Control 2 Mode Balloon Catheter [id number] - [id number] Implanted:Qty: 1 on 08/29/2024 by Austin Phan MD at [facility] [employer] 06/25/2026 [id number] / / [id number] Procedures Procedure Name Priority Date/Time Associated Diagnosis Comments GLUCOSE, FASTING Routine 09/19/2024 11:54 AM CDT ANTI-ISLET CELL ANTIBODY Routine 09/19/2024 11:54 AM CDT Type 2 diabetes mellitus with hyperglycemia, with long-term current use of insulin ([facility]) ZINC TRANSPORTER 8 (ZNT8) ANTIBODY Routine 09/19/2024 11:54 AM CDT Type 2 diabetes mellitus with hyperglycemia, with long-term current use of insulin ([facility]) GELY-65 AUTOANTIBODY Routine 09/19/2024 11:54 AM CDT Type 2 diabetes mellitus with hyperglycemia, with long-term current use of insulin ([facility]) INSULIN AUTOANTIBODY Routine 09/19/2024 11:54 AM CDT Type 2 diabetes mellitus with hyperglycemia, with long-term current use of insulin ([facility]) POCT HEMOGLOBIN A1C Routine 09/13/2024 2 :21 [...] LTD DOPPLER/CF Routine 08/29/2024 1:12 PM CDT IA AN PROCEDURE PLACEHOLDER Routine 08/29/2024 12:41 PM CDT IA AN ELECTIVE ENDOTRACHEAL AIRWAY Routine 08/29/2024 12:41 [...] Transporter 8 (Znt8) Antibody <10 <15 U/mL [facility], Comment: For additional information, please refer to http://education.Applauze/faq/DOF652 (This link is being provided for information/educational purposes only.) Blood 09/19/2024 11:5 4 AM CDT 09/19/2024 11:55 AM CDT Narrative [facility] - 09/26/2024 6:27 PM CDT FASTING:YES FASTING: YES Tl Cruz DO LAB BLOOD ORDERABLES Final Result [facility], [address] [place] [address] * (ABNORMAL) INSULIN AUTOANTIBODY Blood (09/19/2024 11:54 AM CDT) Insulin ab >50.0(H) <0.4 U/mL [facility]/[employer] [facility], Blood 09/19/2024 11:5 4 AM CDT 09/19/2024 11:55 AM CDT Narrative [facility] - 09/26/2024 6:27 PM CDT FASTING:YES FASTING: YES Tl Cruz DO LAB MICROBIOLOGY - GENERAL ORDERABLES Final Result [facility]/[employer] [facility], [address] [place] [address] * GELY-65 autoantibody (09/19/2024 11:54 AM CDT) Glutamic acid decarboxylase 65, ab <5 <5 IU/mL [facility] Comment: This test was performed using the GAD65 KELLY method, which is standardized against the International reference preparation 97/550. Blood 09/19/2024 11:5 4 AM CDT 09/19/2024 11:55 AM CDT Narrative [facility] - 09/26/2024 6:27 PM CDT FASTING:YES FASTING: YES Tl Cruz DO LAB BLOOD ORDERABLES Final Result Performing Organization Address City/[facility] Co de Phone Number [facility]/[place] [address] [place] [address] * Anti-islet cell antibody (09/19/2024 11:54 AM CDT) Islet cell ab NEGATIVE NEGATIVE [facility], Comment: This test was developed and its analytical performance characteristics have been determined by [employer]. It has not been cleared or approved by the FDA. This assay has been validated pursuant to the CLIA regulations and is used for clinical purposes. Blood 09/19/2024 11:5 4 AM CDT 09/19/2024 11:55 AM CDT Narrative [facility] - 09/26/2024 6:27 PM CDT FASTING:YES FASTING: YES Tl Cruz DO LAB BLOOD ORDERABLES Final Result Performing Organization Address City/[facility]/ZIP Co de Phone Number [employer] [facility], [address] [place] [address] * (ABNORMAL) Glucose, fasting (09/19/2024 11:54 AM CDT) Glucose 104(H) 65 - 99 mg/dL [facility] Comment: Fasting reference interval For someone without known diabetes, a glucose value between 100 and 125 mg/dL is consistent with prediabetes and should be confirmed with a follow-up test. 09/19/2024 11:5 4 AM CDT 09/19/2024 11:55 AM CDT Narrative [facility] - 09/26/2024 6:27 PM CDT FASTING:YES FASTING: YES Dakshawa Loyd Cruz DO LAB BLOOD ORDERABLES Final Result [facility] [address] [place] [address] * (ABNORMAL) POCT hemoglobin A1c (09/13/2024 2:21 PM CDT) Hemoglobin A1C, POC 10.5(A) 4.0 - 5.6 % Blood 09/13/2024 2:21 PM CDT Dakshawa Loyd Cruz DO POINT OF CARE TEST [...] by: Parul Serna M.D. us Silvia Tanner CALENDERING SUPERVISOR IMG XR PROCEDURES Final Resul t * [...] AM CDT Narrative 08/30/2024 10:04 AM CDT [facility] Heart Station Quantitative Echo Report [facility] [address], [place] [address] Patient Name: DEVON SLOAN Study Type: Pediatric Echo Patient : 1980 Exam Date: 08/30/2024 Age: 43Y Exam Time: 6:51:00 AM Referring MD: DRAKE LUND Height: 168cm Weight: 75.6kg BSA: 1.85 m2 Sex: MALE BP: 114/77 Cloud Security Architect: Ghazala Roe. Stat.: Inpatient Room: [place] [address] Account:[id number] Indications for Study:Transcatheter placement of pulmonary valve [...] Procedure Note Rashel Eddy MD - 08/30/2024 [facility] Heart Station Quantitative Echo Report [address] [address] Patient Name: DEVON SLOAN Study Type: Pediatric Echo Patient : 1980 Exam Date: 08/30/2024 Age: 43Y Exam Time: 6:51:00 AM Referring MD: DRAKE LUND Height: 168cm Weight: 75.6kg BSA: 1.85 m2 Sex: MALE BP: 114/77 Cloud Security Architect: Ghazala Sabillon Pat. Stat.: Inpatient Room: 7421 Account:[id number] Indications for Study:Transcatheter placement of pulmonary valve [...] HEALTHCARE Atrial Rate 77 BPM [facility] IA-Interval (MSEC) 222 ms [facility] QRS-Interval (MSEC) 146 ms [facility] QT-Interval (MSEC) 484 ms [facility] QTc 547 ms [facility] P Bullock 67 degrees [facility] R Bullock 151 degrees [facility] T Bullock 76 degrees [facility] Diagnosis Sinus rhythm [...] Reyes Steele ([id number]) on 08/30/2024 9:57:[address] [facility] 08/30/2024 6:56 AM CDT 08/30/2024 9:57 AM CDT us Silvia Tanner NP ECG ORDERABLES Final Result [facility] * ECG 12 lead (08/29/2024 4:04 PM CDT) Ventricular Rate EKG/Min 233 BPM [facility] Atrial Rate 241 BPM [facility] QRS-Interval (MSEC) 76 ms [facility] QT-Interval (MSEC) 184 ms [facility] QTc 362 ms [facility] R Bullock 48 degrees [facility] T Bullock -69 degrees [facility] Diagnosis Atrial flutter with variable conduction Low voltage QRS Abnormal ECG When compared with ECG of 20-JUN-2024 14:11, patient is no longer in sinus rhythm Confirmed by LEORA MOLINA M.D. ([id number]) on 08/22/2024 1:57:48 PM Also confirmed by LEORA MOLINA M.D. ([id number]), website/blog editor Vee Valverde ([id number]) on 08/27/2024 8:06:[address] [facility] 08/22/2024 10:1 1 AM CDT 08/27/2024 8:06 AM CDT us Silvia Tanner NP ECG ORDERABLES Edited Result - Final [facility] * POCT glucose (08/29/2024 3:33 PM CDT) Glucose, POC 175 70 - 199 mg/dL Blood 08/29/2024 3:33 PM CDT 08/29/2024 3:33 PM CDT us Austin Phan MD LAB POCT ORDERABLES - DEVICE Final Result [facility] [place] [address] * PEDIATRIC CARDIAC CATHETERIZATION (08/29/2024 2:48 PM CDT) Anatomical Region Laterality Modality X-Ray Angiograph y 08/29/2024 12:0 0 PM CDT Narrative 08/29/2024 4:15 PM CDT Pediatric Catheterization Patient Name: DEVON SLOAN Study Type: Cath XA Patient : 1980 Exam Date: 08/29/2024 Age: 43Y Exam Time: 12:00:00 PM Referring MD: DULCE MARIA ARTHUR Height: 168cm Weight: 75.6kg BSA: 1.85 m2 Sex: MALE Account:[id number] CATH PROCEDURE: Procedure Description: Fluoro Time: 18.60 [...] technique under ultrasound guidance and a 7F Ukrainian sheath was placed. Likewise the LFA was [...] sheath was then upsized to a 26 Ukrainian DrySeal sheath. During placement of the DrySeal [...] wire and positioned across the valve. The [place] gold balloon was inflated to 12 atmospheres and the existing valve frame expanded. The [place] balloon was then removed and replaced with [...] arterial sheath was upsized to a 5 Ukrainian prelude sheath and a Mynx vascular closure system was deployed in the arterial access site. A fjqmkt-bu-ndlvt stitch was placed around the venous access site since 1 of the Perclose sutures had been inadvertently cut as mentioned previously. The remaining Perclose suture was tightened and as the sheath and wire removed the tindgt-mp-lstcm suture was also tightened. This achieved hemostasis. [...] patient underwent cardioversion with 75 joules with adventism of normal sinus rhythm 3. Low cardiac [...] 7. A single Perclose suture in a tgkuqq-iy-parwr were applied to the left femoral vein [...] Nadege valve. STAFF: Interventionalist Austin Phan MD. Quenching Machine Operator Tech Bell Board[employer]. Circulating Nurse Alexa Schaeffer RN. Anesthesiologist Phoenix Fox MD. Assisting Cath Physician Volodymyr Cedillo MD. Signed 08/29/2024 04:15 PM Austin Phan MD Procedure Note Austin Phan MD - 08/29/2024 Pediatric Catheterization Patient Name: DEVON SLOAN Study Type: Cath XA Patient : 1980 Exam Date: 08/29/2024 Age: 43Y Exam Time: 12:00:00 PM Referring MD: DULCE MARIA ARTHRU Height: 168cm Weight: 75.6kg BSA: 1.85 m2 Sex: MALE Account:[id number] CATH PROCEDURE: Procedure Description: Fluoro Time: 18.60 [...] technique under ultrasound guidance and a 7F Ukrainian sheath was placed. Likewise the LFA was [...] sheath was then upsized to a 26 Ukrainian DrySeal sheath. During placement of the DrySeal [...] wire and positioned across the valve. The [place] gold balloon was inflated to 12 atmospheres and the existing valve frame expanded. The [place] balloon was then removed and replaced with [...] sheath was retracted as well. Once the Nadeeg valve was in good position the balloon [...] arterial sheath was upsized to a 5 Ukrainian prelude sheath and a Mynx vascular closure system was deployed in the arterial access site. A oevhcu-to-acxsu stitch was placed around the venous access site since 1 of the Perclose sutures had been inadvertently cut as mentioned previously. The remaining Perclose suture was tightened and as the sheath and wire removed the nqfngw-cg-tsgvp suture was also tightened. This achieved hemostasis. [...] patient underwent cardioversion with 75 joules with adventism of normal sinus rhythm 3. Low cardiac [...] 7. A single Perclose suture in a kttzxs-jr-qknox were applied to the left femoral vein [...] Nadege valve. STAFF: Interventionalist Austin Phan MD. Quenching Machine Operator Tech Maritzathomas [employer]osta [employer]. Circulating Nurse Aelxa Schaeffer RN. Anesthesiologist Phoenix Fox MD. Assisting [...] data was last revised 2023. POC Performer [id number] [facility] POC Device Number [id number] [facility] Blood 08/29/2024 2:44 PM CDT 08/29/2024 2:44 PM CDT us Austin Phan MD LAB POCT ORDERABLES - DEVICE Final Result Performing Organization Address [facility] de Phone Number [facility] [place] [address] * (ABNORMAL) POCT Activated clotting time, low range (08/29/2024 1:57 PM CDT) ACT 237(H) 120 - 170 sec Comment: Interpetive Data Reference Ranges Not Established for a Pediatric Population. Current interpretive data was last revised 2023. POC Performer [id number] [facility] POC Device Number [id number] [facility] Blood 08/29/2024 1:57 PM CDT 08/29/2024 1:57 PM CDT us Austin Phan MD LAB POCT ORDERABLES - DEVICE Final Result Performing Organization Address [facility] Co de Phone Number [facility] [place] [address] * (ABNORMAL) POCT Blood gas-hgb sat, cath (08/29/2024 1:47 PM CDT) O2 saturation bundle tier and labeler/or 48.4 % Carboxyhemoglob in, cath 1.3 0.0 - 2.9 % [facility] Hgb estimated 16.9 13.0 - 17.5 g/dL [facility] Methemoglobin, cath <1.0 <=1.9 % [facility] OxyHb 47.5(C) 90.0 - 95.0 % [facility] Specimen Source Vehicle Trimmer/OR LPA [facility] Blood 08/29/2024 1:47 PM CDT 08/29/2024 1:47 PM CDT Austin Phan MD LAB POCT ORDERABLES - DEVICE Final Result Performing Organization Address [facility] Co de Phone Number [facility] [place] [address] * (ABNORMAL) POCT Blood gas-hgb sat, cath (08/29/2024 1:45 PM CDT) O2 saturation bundle tier and labeler/or 46.1 % Carboxyhemoglob in, cath 1.3 0.0 - 2.9 % [facility] Hgb estimated 16.8 13.0 - 17.5 g/dL [facility] Methemoglobin, cath <1.0 <=1.9 % [facility] OxyHb 45.2(C) 90.0 - 95.0 % [facility] Specimen Source Vehicle Trimmer/OR MPA [facility] Blood 08/29/2024 1:45 PM CDT 08/29/2024 1:45 PM CDT us Austin Phan MD LAB POCT ORDERABLES - DEVICE Final Result Performing Organization Address [facility]/ZIP Co de Phone Number [facility] [employer] [place] [address] * (ABNORMAL) POCT Blood gas-hgb sat, cath (08/29/2024 1:41 PM CDT) O2 saturation bundle tier and labeler/or 53.7 % Carboxyhemoglob in, cath 1.3 0.0 - 2.9 % [facility] Hgb estimated 16.4 13.0 - 17.5 g/dL [facility] Methemoglobin, cath <1.0 <=1.9 % [facility] OxyHb 52.8(C) 90.0 - 95.0 % [facility] Specimen Source Vehicle Trimmer/OR SVC [facility] Blood 08/29/2024 1:41 PM CDT 08/29/2024 1:41 PM CDT Austin Phan MD LAB POCT ORDERABLES - DEVICE Final Result Performing Organization Address City/[facility] Co de Phone Number [facility] [employer] [place] [address] * (ABNORMAL) POCT Blood gas-hgb sat, cath (08/29/2024 1:40 PM CDT) pH Vehicle Trimmer/OR 7.30(L) 7.35 - 7.45 PCO2 Vehicle Trimmer/OR 38 35 - 45 mmHg [facility] PO2 Vehicle Trimmer/OR 59(L) 83 - 108 mmHg [facility] CO2, total 20 20 - 30 mmol/L [facility] [place] [place], bundle tier and labeler/or -7.1 mmol/L [facility] O2 saturation bundle tier and labeler/or 88.2 % [facility] Carboxyhemoglob in, cath 1.5 0.0 - 2.9 % [facility] Hgb estimated 16.6 13.0 - 17.5 g/dL [facility] Methemoglobin, cath <1.0 <=1.9 % [facility] OxyHb 86.6(L) 90.0 - 95.0 % [facility] Specimen Source Vehicle Trimmer/OR JUAN MANUEL [facility] Hct, POC 51.0 % [facility] Blood 08/29/2024 1:40 PM CDT 08/29/2024 1:40 PM CDT Austin Phan MD LAB POCT ORDERABLES - DEVICE Final Result Performing Organization Address City/[facility]/ZIP Co de Phone Number [facility] [place] [address] * PEDIATRIC LYUDMILA TRANSESOPHAGEAL ECHO (ZAK) W LTD DOPPLER/CF (08/29/2024 1:12 PM CDT) Anatomical Region Laterality Modality Ultrasound 08/29/2024 12:1 4 PM CDT Narrative 08/29/2024 4:29 PM CDT [facility] [address] [place] [address] Transesophageal Echo Report ----- Patient Name: DEVON SLOAN Study Type: ZAK Patient : 1980 Exam Date: 08/29/2024 Age: 43Y Exam Time: 12:14:00 PM Referring MD: DRAKE LUND Height: 168cm Weight: 76kg BSA: 1.86 m2 Sex: MALE BP: 73/54 Cloud Security Architect: Alex Montano Pat. Stat.: Inpatient Room: [facility] Account:[id number] Indications for Study:PULMONARY ATRESIA. 747.3 Procedures: CONGENITAL [...] Procedure Note Rashel Eddy MD - 08/29/2024 [facility] [address] [place] [address] Transesophageal Echo Report ----- Patient Name: DEVON SLOAN Study Type: ZAK Patient : 1980 Exam Date: 08/29/2024 Age: 43Y Exam Time: 12:14:00 PM Referring MD: DRAKE LUND Height: 168cm Weight: 76kg BSA: 1.86 m2 Sex: MALE BP: 73/54 Cloud Security Architect: Alex Montano Pat. Stat.: Inpatient Room: [facility] Account:[id number] Indications for Study:PULMONARY ATRESIA. 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 QRS-Interval (MSEC) [address] [facility] QT-Interval (MSEC[facility] [address] [facility] QTc [address] [facility] R Bullock [address] [facility] T Bullock -[address] [facility] Diagnosis Atrial flutter with variable A-V block Unable to accurately measure the QT interval Abnormal ECG When compared with ECG of 22-AUG-2024 10:11, No significant change was found Confirmed by fellow Shanel Hall do ([id number]) on 08/29/2024 10:45:57 AM I have personally reviewed the study and I agree with the above findings Confirmed by LEORA MOLINA M.D. ([id number]) on 08/29/2024 3:58:[address] [facility] 08/29/2024 10:3 6 AM CDT 08/29/2024 3:58 PM CDT us Silvia Tanner CALENDERING SUPERVISOR ECG ORDERABLES Final Result [facility] * ABO / Rh Confirmation Testing (08/29/2024 9:59 AM CDT) Pathologist [facility] ABO/Rh Confirmation A Positive [facility] Blood 08/29/2024 9:59 AM CDT 08/29/2024 10:26 AM CDT us Austin Phan MD LAB BLOOD ORDERABLES Final Re sult [facility] [place] [address] [facility] * (ABNORMAL) CBC without differential (08/29/2024 9:59 AM CDT) Pathologist [facility] WBC 5.60 3.80 - 9.90 K/cumm Hgb 17.6(H) 13.0 - 17.5 g/dL [facility] Hct 52.0(H) 38.9 - 50.3 % [facility] Plt 206 150 - 400 K/cumm [facility] MPV 12.0 9.1 - 12.3 fL [facility] RBC 5.69 4.30 - 5.80 M/cumm [facility] MCV 91.4 81.3 - 96.4 fL [facility] MCH 30.9 27.1 - 33.3 pg [facility] MCHC 33.8 32.3 - 35.7 g/dL [facility] RDW CV 14.0 11.1 - 14.9 % [facility] RDW SD 46.5 35.7 - 48.1 fL [facility] NRBC abs 0.00 0.00 - 0.01 K/cumm [facility] Blood 08/29/2024 9:59 AM CDT 08/29/2024 10:20 AM CDT us Silvia Tanner NP LAB BLOOD ORDERABLES Final Re sult Performing Organization Address City/[facility] Co de Phone Number [facility] [employer] [place] [address] * Prepare RBC: 1 Units (08/29/2024 9:26 AM CDT) Units requested 1 Units requested Ready [facility] Unit Number [id number] Product code [id number] [facility] Blood Expiration Date [id number] [facility] Product Blood Type (for scanning) 5100 [facility] Product Blood Type OPOS [facility] Dispense Status DISPENSED [facility] Blood 08/29/2024 9:26 AM CDT 08/29/2024 9:25 AM CDT us Silvia Tanner NP BLOOD BANK PRODUCT ORDERABLES Final Result Performing Organization Address [facility] Co de Phone Number [facility] [place] [place] [place] [address] * eGFR (08/22/2024 11:55 AM CDT) eGFR [...] ORDERABLES Final Re sult Performing Organization Address [facility] Co de Phone Number [facility] [place] [employer] [place] [place] [address] * ABO/Rh (08/22/2024 11:55 AM CDT) Pathologist [facility] ABO/Rh A Positive Blood 08/22/2024 11:5 5 AM CDT 08/22/2024 12:33 PM CDT Silvia Tanner NP LAB BLOOD BANK TEST ORDERABLE S Final Result Performing Organization Address [facility] Co de Phone Number [facility] [place] [employer] [place] [place] [address] * Crossmatch (08/22/2024 11:55 AM CDT) Crossmatch Compatible [facility] Unit number for crossmatch [id number] [facility] Blood 08/22/2024 11:5 5 AM CDT 08/22/2024 12:33 PM CDT Prince Blount MD LAB BLOOD BANK TEST ORDERABLES Final Result Performing Organization Address City/[facility]/ZIP Co de Phone Number [facility] [employer] [place] [place] [address] * Antibody screen (08/22/2024 11:55 AM CDT) Pathologist [facility] Shaneka, indirect, Gel Interpretation Negative [facility] Blood 08/22/2024 11:5 5 AM CDT 08/22/2024 12:33 PM CDT Silvia Tanner NP LAB BLOOD BANK TEST ORDERABLE S Final Result Performing Organization Address [facility] Co de Phone Number [facility] [place] [address] * (ABNORMAL) TSH (08/22/2024 11:55 AM CDT) [facility] Thyroid Stimulating Hormone 5.86(H) 0.30 - 4.20 mcIUnit/mL Blood 08/22/2024 11:5 5 AM CDT 08/22/2024 12:08 PM CDT Silvia Tanner NP LAB BLOOD ORDERABLES Final Re sult Performing Organization Address City/[facility]/[place] [address] * T4, free (08/22/2024 11:55 AM CDT) Pathologist [facility] Free T4 1.51 0.90 - 1.70 ng/dL Blood 08/22/2024 11:5 5 AM CDT 08/22/2024 12:08 PM CDT Silvia Tanner NP LAB BLOOD ORDERABLES Final Re sult Performing Organization Address City/[facility]/ZIP Co de Phone Number [facility] [place] [address] * Basic metabolic panel (08/22/2024 11:55 AM CDT) Sodium 136 135 - 145 mmol/L Potassium, pl 4.5 3.3 - 4.9 mmol/L [facility] Chloride 105 97 - 110 mmol/L [facility] CO2 23 22 - 32 mmol/L [facility] Anion gap 8 2 - 15 mmol/L [facility] BUN 18 6 - 25 mg/dL [facility] Creatinine 1.05 0.80 - 1.30 mg/dL [facility] Glucose 136 70 - 199 mg/dL [facility] Comment: Interpretive Data Fasting glucose >/= 126 [...] 2022. Calcium 9.4 8.5 - 10.3 mg/dL [facility] Blood 08/22/2024 11:5 5 AM CDT 08/22/2024 12:08 PM CDT Silvia Tanner NP LAB BLOOD ORDERABLES Final Re sult Performing Organization Address City/[facility]/[place] [address] * XR Chest Pa Lateral 2 Views [...] by: More Medina M.D. us Silvia Tanner CALENDERING SUPERVISOR IMG XR PROCEDURES Final Resul t * Hepatitis C antibody Blood (06/01/2024 8:58 AM CDT) Hep C Ab NON-REACTI VE NON-REACT [place] [facility] Comment: HCV antibody was non-reactive. There is no laboratory evidence of HCV infection. In most cases, no further action is required. However, if recent HCV exposure is suspected, a test for HCV RNA (test code 10090) is suggested. For additional information please refer to http://education.[employer]/faq/LVJ46r7 (This link is being provided for informational/ educational purposes only.) Blood 06/01/2024 8:58 AM CDT 06/01/2024 8:58 AM CDT Narrative [facility] - 06/02/2024 6:58 AM CDT FASTING:YES FASTING: YES Carol Quiñones NP LAB MICROBIOLOGY - GENE RAL ORDERABLES Final Result Performing Organization Address City/[facility]/ZIP Co de Phone Number [facility] [address] [address] [facility] [place] [address] * (ABNORMAL) Albumin Creatinine Ratio, Urine (06/01/2024 [...] ORDERABLES Fi nal Result Performing Organization Address City/[facility]/ZIP Co de Phone Number [facility] [address] [place] [address] * (ABNORMAL) Lipid panel (06/01/2024 8:58 AM [...] LDL-C. Jovany SS et al. LOVE. 2013;310(19): 4066-4065 (http://education.[employer]/faq/QIC798) Chol/HDL ratio 3.1 <5.0 (calc) [facility] [...] AM CDT FASTING:YES FASTING: YES Carol Quiñones CALENDERING SUPERVISOR LAB BLOOD ORDERABLES Fi nal Result [facility] [address] [place] [phone] * DIABETES EYE EXAM (03/26/2024) 03/26/2024 Historical Provider HEALTH MAINTENANCE Final Result from Last 3 Months or Most Recently Relevant to Health Maintenance Insurance [facility] Packet[employer]led [employer] S[employer]ATURE [facility] [employer] Advance Directives For more information, please contact: [phone] Documents on File Type Date Recorded Patient Carrot Buncher Expl anation Advance Directives and Livin g Will 08/22/2024 11:24 AM * Full Code (Latest Code Status on File) Date Activated Date Inactivated Comments 08/29/2024 9:22 AM 08/30/2024 10:21 PM * Full Code Date Activated Date Inactivated Comments 09/17/2022 2:44 PM 09/20/2022 10:47 PM Care Teams Rock Climbing Team Member Relationship Specialty Start Date End Date Phoenix Colon MD [address] [place] [address] PCP - General Family Medicine 10/26/21 Cam Oliveira Jr., MD Consulting Physician Endocrinology Diabetes & Metabolism 08/06/21 More Mars MD Consulting Physician Pediatric Cardiology 08/06/21
--- OUTSIDE RECORDS SUMMARY | 2024-10-08 15:12 | XMS_ITS | Clinical Summary ---
Author Organization [facility] Address [address] [place] [address] Care Team Providers Care Resort Host Name Role Phone Roxanne Meza MD, Cam Ballard Unavailable [phone] More Mars MD Unavailable Phoenix Colon MD Primary Care Provider [phone] Allergies No known active allergies Medications glucagon [...] valve replacement with bioprosthetic valve,Nonrheumatic pulmonary valve insufficiency,Senior Care Specialist yajaira congestive heart failure with right ventricular [...] mL 3 024 2024 Discontinued blood-glucose transmitter ([employer] G6 Transmitter) deviceIndications: Type 2 diabetes mellitus [...] AM CDT): Referring to general surgery at [facility] for excision. 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 Continue current medication. Acute idiopathic gout of multiple sites 04/28/19 Assessment & Plan (04/28/2023 4:49 PM LAUNCH LEADER): Stable, well controlled; patient reports occasional flares; [...] 03/24/2022 Assessment & Plan (04/28/2023 4:49 PM LAUNCH LEADER): Stable, well controlled; patient was not able to start CPAP; patient reports improved sleep quality; less daytime sleepiness; will continue to monitor Mood disorder 10/27/2021 Assessment & Plan (04/28/2023 4:49 PM LAUNCH LEADER): Stable well controlled; no major issues; patient [...] flutter afterwards. >>OVERVIEW FOR ATRIAL FLUTTER (CMS/HCC) ([facility]) WRITTEN ON 10/19/2021 10:37 AM BY TIM VALENTE Added automatically from request for surgery [id number] Assessment & Plan (05/29/2024 10:27 AM CDT): Normal sinus rhythm today in office, continue sotalol prescribed by Dr. Carey. Uses Xarelto for anticoagulation. Assessment & Plan (05/19/2023 9:22 AM LAUNCH LEADER): He is doing well on sotalol with limited AF recurrence in setting of COVID QT interval stable, QTc 487 ms Continue sotalol 120 mg BID BMP today Continue Xarelto for stroke risk reduction Assessment & Plan (04/28/2023 12:43 PM LAUNCH LEADER): >>ASSESSMENT AND PLAN FOR ATRIAL FLUTTER (CMS/HCC) ([facility]) WRITTEN ON 11/22/2021 8:47 PM BY POHENIX COLON MD Stable, s/p cardioversion, currently in NSR Assessment & Plan (04/28/2023 12:43 PM LAUNCH LEADER): >>ASSESSMENT AND PLAN FOR ATRIAL FIBRILLATION (CMS/HCC) ([facility]) WRITTEN ON 10/27/2021 4:56 PM BY PHOENIX COLON MD EKG performed today; rate of 100, irregularly irregular, atrial fibrillation flutter Possible right bundle-branch block and right axis deviation QRS complex near Assessment & Plan (04/28/2023 12:43 PM LAUNCH LEADER): >>ASSESSMENT AND PLAN FOR ATRIAL FIBRILLATION (CMS/HCC) ([facility]) WRITTEN ON 09/28/2022 1:29 PM BY PHOENIX COLON MD Stable, and regular rate and rhythm today; continue sotalol 120 mg b.i.d.; Xarelto 20 mg daily Assessment & Plan (04/28/2023 12:43 PM LAUNCH LEADER): >>ASSESSMENT AND PLAN FOR ATRIAL FIBRILLATION (CMS/HCC) ([facility]) WRITTEN ON 10/29/2022 2:19 PM BY ALIZE [...] 01/20/2021 Assessment & Plan (05/19/2023 9:22 AM LAUNCH LEADER): 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 [...] Diathermy procedures, the CGM sensor, transmitter, and river rat must be removed prior to the procedure. [...] diabetes. Assessment & Plan (04/28/2023 4:48 PM LAUNCH LEADER): Not well controlled; last A1c elevated at [...] 05/29/2024 Assessment & Plan (04/13/2024 10:15 AM LAUNCH LEADER): Acute nodule in nostril with some surrounding swelling. Will send bactrim to treat. If symptoms worsen or do not improve recommend in person evaluation. Patient verbalized understanding and agreed to plan of care at this time. Encounters Date Type Department Care Team Description 09/27/2024 Results Follow-Up [facility] Diabetes Endocrine Care at [address] [phone] Tl Cruz, DO GELY-65 autoantibody, ZINC TRANSPORTER 8 (ZnT8) ANTIBODY, Anti-islet cell antibody, Additional followed-up results: 2 09/13/2024 2:30 PM CDT Office Visit [facility] Diabetes Endocrine Care at [address] [phone] Tl Cruz DO Type 2 diabetes mellitus with hyperglycemia, with long-term current use of insulin (HCC) (Primary Dx) 09/10/2024 Orders Only [facility] Cardiology [address] 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); Prosthetic pulmonary valve insufficiency; Chronic systolic dysfunction of right ventricle; Status post pulmonary valve replacement with bioprosthetic valve; Elevated right ventricular end-diastolic pressure; Low cardiac output syndrome (HCC); S/P transcatheter replacement of pulmonary valve 09/05/2024 Orders Only [facility] Pediatric Cardiology [facility] 2nd [place] [address] [place] [address] Melinda Benavides 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); Status post pulmonary valve replacement with bioprosthetic valve 09/05/2024 Orders Only [facility] Pediatric Cardiology [facility] 2nd [place] [address] [place] [address] Maylin Orellana RN Chronic systolic dysfunction of right ventricle (Primary Dx); S/P transcatheter replacement of pulmonary valve 09/04/2024 Orders Only [facility] Pediatric Cardiology [facility] 2nd [place] [address] [place] [address] Danica Guaman RN 08/29/2024 12:18 PM CDT Anesthesia Event [facility] Pediatric [place] [address] Phoenix Fox MD Bowman, Tammy M., NP 08/29/2024 12:05 PM CDT - 08/29/2024 4:10 PM CDT Surgery [facility] [place] [address] Austin Phan MD Pediatric Cardiac Catheterization 08/29/2024 9:13 AM CDT - 08/30/2024 4:00 PM CDT Hospital Encounter [facility] [address] [place] [address] Austin Phan MD Orr, William Brinson, MD Pulmonary atresia with intact ventricular septum; Status post pulmonary valve replacement with bioprosthetic valve; Nonrheumatic pulmonary valve insufficiency; Chronic congestive heart failure with right ventricular diastolic dysfunction (HCC); Elevated right ventricular end-diastolic pressure Discharge Disposition: Discharge to home or self care 08/22/2024 1:30 PM CDT Pre-Admission Testing [facility] [place] [address] 08/22/2024 11:45 [place] [address] Atrial fibrillation and flutter (HCC); Adult congenital heart disease; Chronic systolic dysfunction of right ventricle; Elevated right ventricular end-diastolic pressure; Prosthetic pulmonary valve insufficiency; Pulmonary atresia with intact ventricular septum; Status post pulmonary valve replacement with bioprosthetic valve; Chronic anticoagulation on Xarelto 08/22/2024 10:30 AM CDT - 08/22/2024 11:59 PM CDT Hospital Encounter [facility] Pediatric Cardiology [facility] Heart Station [address] [place] [address] Atrial fibrillation and flutter (HCC) Discharge Disposition: Discharge to home or self care 08/22/2024 9:25 AM CDT - 08/22/2024 11:59 PM CDT Hospital Encounter [facility] Diagnostic [place] [address] Atrial fibrillation and flutter (HCC); Adult congenital heart disease; Chronic systolic dysfunction of right ventricle; Elevated right ventricular end-diastolic pressure; Prosthetic pulmonary valve insufficiency; Pulmonary atresia with intact ventricular septum; Status post pulmonary valve replacement with bioprosthetic valve; Chronic anticoagulation on Xarelto Discharge Disposition: Discharge to home or self care 08/22/2024 7:30 AM CDT Pre-Admission Testing [facility] Preoperative [facility] [address] [place] [address] 08/21/2024 Telephone [facility] Pediatric [place] [address] Silvia Tanner NP 08/20/2024 Orders Only [facility] Pediatric Cardiology [facility] 2nd [place] [address] [place] [address] Melinda Benavides Atrial fibrillation and flutter (HCC) (Primary Dx) 07/16/2024 Telephone [facility] Pediatric Cardiology [facility] 2nd [place] [address] [place] [address] Maylin Orellana RN from Last 3 Months Immunizations Immunization Administration Dates Next Due Hep A, Adult 02/12/2023 Influenza, Quadrivalent, Spl it, Preservative Free, Intramuscular 11/29/2022 Influenza, Trivalent, Preser vative Free, Intramuscular 12/15/2023 Influenza, Unspecified 06/02/2023(Deferr ed: Patient Refused),12/22/2022(Deferred: Patient Refused),01/03/2022,11/12/2021(Deferre d: Patient Refused),10/26/2021(Deferred: Not available from head bookkeeper),12/12/2020(Deferred: Patient Refused) Surgical History Surgery Date Site/Laterality Comments SUBCLAVIAN / PULMONARY SHUNT 1982 Right [facility] PULMONARY VALVULOPLASTY 02/27/1983 [facility] SUBCLAVIAN / PULMONARY SHUNT 03/14/1985 - 03/13/1986 Left CARDIAC SURGERY 11/23/1990 RVOT patch angioplasty across TV, Dr. Didier Conley, [facility] PULMONARY VALVE REPLACEMENT 02/23/2019 with 25mm Inspiris bioprosthetic valve, Dr. Welch, [facility] in [place], [place] HERNIA REPAIR 03/14/2016 - 03/13/2017 Right SHUNT EXTERNALIZATION 1983 CARDIOVERSION 2021 & 2022 CARDIAC CATHETERIZATION 08/29/2024 N/A Procedure: Pediatric Cardiac Catheterization; Surgeon: Austin Phan MD; Location: [facility] CARDIAC ENGINEERING LAB TECHNICIAN; Service: Cardiovascular; Laterality: N/A; PA/IVS w 2v [...] often do you attend chur ch or congregational services? Never 09/28/2022 Do you belong to any clubs o r organizations such as nondenominational groups, unions, fraternal or athletic groups, or [...] staff should administer the PHQ-9) 0 05/29/2024 [facility] - Occupational Stress Questionnaire Answer Date Recorded [...] place to sleep or slept in a usp (including now)? No 09/28/2022 PHQ-9 Answer Date [...] Vaccines Discontinued Medical Devices Implanted Type Area Florist Manager Device Identifier Shelf Expiration Date Model / Serial / Lot Mesh Mesh Abdomen Shunt Implanted:Qty: 2 Shunt Arterial Stent Implanted:Qty: 1 Stent Coronary Artery [employer] System Closure Repair Femoral Artery Suture Mediated Perclose Prostyle 97087-04 - [id number] Implanted:Qty: 1 on 08/29/2024 by Austin Phan MD at [facility] [employer] 06/11/2026 [id number] / / [id number] [employer] System Closure Repair Femoral Artery Suture Mediated Perclose Prostyle 18026-40 - [id number] Implanted:Qty: 1 on 08/29/2024 by Austin Phan MD at [facility] [employer] 07/11/2026 [id number] / / [id number] [employer] Nadege 3 29mm Transcatheter Aortic Valve [id number] - [id number] - [id number] Implanted:Qty: 1 on 08/29/2024 by Austin Phan MD at [facility] [employer] 05/03/2026 [id number] / [id number] / Access Closure Inc Device 10ml 5fr Closure Mynx Control 2 Mode Balloon Catheter [id number] - [id number] Implanted:Qty: 1 on 08/29/2024 by Austin Phan MD at [facility] [employer] 06/25/2026 [id number] / / [id number] Procedures Procedure Name Priority Date/Time Associated Diagnosis [...] LTD DOPPLER/CF Routine 08/29/2024 1:12 PM CDT [place] AN PROCEDURE PLACEHOLDER Routine 08/29/2024 12:41 PM CDT [place] AN ELECTIVE ENDOTRACHEAL AIRWAY Routine 08/29/2024 12:41 [...] 8 (Znt8) Antibody <10 <15 U/mL [facility], Comment: For additional information, please refer to http://education.Roadmap.Todaytickets/faq/ZBL419 (This link is being provided for information/educational purposes only.) Blood 09/19/2024 11:5 4 AM CDT 09/19/2024 11:55 AM CDT Narrative [facility] - 09/26/2024 6:27 PM CDT FASTING:YES FASTING: YES [facility] / [facility] Loyd Cruz LAB BLOOD ORDERABLES Final Result Performing Organization Address [facility] Co de Phone Number [facility], [address] [place] [address] * (ABNORMAL) INSULIN AUTOANTIBODY Blood (09/19/2024 11:54 AM CDT) Insulin ab >50.0(H) <0.4 U/mL [facility], Blood 09/19/2024 11:5 4 AM CDT 09/19/2024 11:55 AM CDT Narrative [facility] - 09/26/2024 6:27 PM CDT FASTING:YES FASTING: YES Dakshaky Loyd Cruz DO [facility] MICROBIOLOGY - GENERAL ORDERABLES Final Result Performing Organization Address [facility] Co de Phone Number [facility], [address] [place] [address] * GELY-65 autoantibody (09/19/2024 11:54 AM CDT) [...] BLOOD ORDERABLES Final Result Performing Organization Address [facility] Co de Phone Number [facility]/[place] [address] [place] [address] * Anti-islet cell antibody (09/19/2024 11:54 AM CDT) Pathologist [facility] Islet cell ab NEGATIVE NEGATIVE [facility], Comment: This test was developed and its analytical performance characteristics have been determined by [facility]. It has not been cleared or approved by the FDA. This assay has been validated pursuant to the CLIA regulations and is used for clinical purposes. Blood 09/19/2024 11:5 4 AM CDT 09/19/2024 11:55 AM CDT Narrative [facility] - 09/26/2024 6:27 PM CDT FASTING:YES FASTING: YES Tl Cruz DO LAB BLOOD ORDERABLES Final Result Performing Organization Address [facility] de Phone Number [facility], [address] [place] [address] * (ABNORMAL) Glucose, fasting (09/19/2024 11:54 AM CDT) Pathologist [facility] Glucose 104(H) 65 - 99 mg/dL [facility] [...] BLOOD ORDERABLES Final Result Performing Organization Address [facility] Co de Phone Number [facility] [address] [place] [address] * (ABNORMAL) POCT hemoglobin A1c (09/13/2024 2:21 [...] by: Parul Serna M.D. us Silvia Tanner FRANCHISE SALES REPRESENTATIVE IMG XR PROCEDURES Final Resul t * [...] AM CDT Narrative 08/30/2024 10:04 AM CDT [facility] Quantitative Echo Report [facility] [address] Patient Name: CHANNING SLOAN Study Type: Pediatric Echo Patient : 1980 Exam Date: 08/30/2024 Age: 43Y Exam Time: 6:51:00 AM Referring MD: DRAKE LUND Height: 168cm Weight: 75.6kg BSA: 1.85 m2 Sex: MALE BP: 114/77 Manager Mail: Ghazala Roe. Stat.: Inpatient Room: 7421 Account:[id number] Indications for Study:Transcatheter placement of pulmonary valve [...] 10:04 AM Rashel Eddy MD Procedure Note Rashle Eddy MD - 08/30/[address] [facility] Quantitative Echo Report One [address] [address] Patient Name: CHANNING SLOAN Study Type: Pediatric Echo Patient : 1980 Exam Date: 08/30/2024 Age: 43Y Exam Time: 6:51:00 AM Referring MD: DRAKE LUND Height: 168cm Weight: 75.6kg BSA: 1.85 m2 Sex: MALE BP: 114/77 Manager Mail: Ghazala Roe. Stat.: Inpatient Room: [place] [address] Account:[id number] Indications for Study:Transcatheter placement of pulmonary valve [...] HEALTHCARE Atrial Rate 77 BPM [facility] WY-Interval (MSEC) 222 ms [facility] QRS-Interval (MSEC) 146 ms [facility] QT-Interval (MSEC) 484 ms [facility] QTc 547 ms [facility] P [place] 67 degrees [facility] R [place] 151 degrees [facility] T [place] 76 degrees [facility] Diagnosis Sinus rhythm with 1st degree A-V [...] Reyes Steele ([id number]) on 08/30/2024 9:57:31 AM [facility] 08/30/2024 6:56 AM CDT 08/30/2024 9:57 AM CDT us Silvia Tanner NP ECG ORDERABLES Final Result [facility] * ECG 12 lead (08/29/2024 4:04 PM CDT) Ventricular Rate EKG/Min 233 BPM [facility] Atrial Rate 241 BPM [facility] QRS-Interval (MSEC) 76 ms [facility] QT-Interval (MSEC) 184 ms [facility] QTc 362 ms [facility] R [place] 48 degrees [facility] T [place] -69 degrees [facility] Diagnosis Atrial flutter with variable conduction Low voltage QRS Abnormal ECG When compared with ECG of 20-JUN-2024 14:11, patient is no longer in sinus rhythm Confirmed by LEORA MOLINA M.D. ([id number]) on 08/22/2024 1:57:48 PM Also confirmed by LEORA MOLINA M.D. ([id number]), technical writer and editor Vee Valverde ([id number]) on 08/27/2024 8:06:18 AM [facility] 08/22/2024 10:1 1 AM CDT 08/27/2024 8:06 AM CDT us Silvia M. Tanner FRANCHISE SALES REPRESENTATIVE ECG ORDERABLES Edited Result - Final [facility] * POCT glucose (08/29/2024 3:33 PM CDT) Glucose, POC 175 70 - 199 mg/dL Blood 08/29/2024 3:33 PM CDT 08/29/2024 3:33 PM CDT Austin Phan MD LAB POCT ORDERABLES - DEVICE Final Result [facility] [place] [address] * PEDIATRIC CARDIAC CATHETERIZATION (08/29/2024 2:48 PM CDT) Anatomical Region Laterality Modality X-Ray Angiograph y 08/29/2024 12:0 0 PM CDT Narrative 08/29/2024 4:15 PM CDT Pediatric Catheterization Patient Name: CHANNING SLOAN Study Type: Cath XA Patient : 1980 Exam Date: 08/29/2024 Age: 43Y Exam Time: 12:00:00 PM Referring MD: DULCE MARIA ARTHUR Height: 168cm Weight: 75.6kg BSA: 1.85 m2 Sex: MALE Account:[id number] CATH PROCEDURE: Procedure Description: Fluoro Time: 18.60 [...] technique under ultrasound guidance and a 7F Grenadian sheath was placed. Likewise the LFA was [...] sheath was then upsized to a 26 Grenadian DrySeal sheath. During placement of the DrySeal [...] wire and positioned across the valve. The Charlotte gold balloon was inflated to 12 atmospheres and the existing valve frame expanded. The Charlotte balloon was then removed and replaced with [...] arterial sheath was upsized to a 5 Grenadian prelude sheath and a Mynx vascular closure system was deployed in the arterial access site. A juvfbb-gt-zcvdk stitch was placed around the venous access site since 1 of the Perclose sutures had been inadvertently cut as mentioned previously. The remaining Perclose suture was tightened and as the sheath and wire removed the igxbmh-ah-gaqvj suture was also tightened. This achieved hemostasis. [...] patient underwent cardioversion with 75 joules with taoism of normal sinus rhythm 3. Low cardiac [...] 7. A single Perclose suture in a zkabhg-rk-aikyd were applied to the left femoral vein [...] Nadege valve. STAFF: Interventionalist Austin Phan MD. Home Energy Consultant Tech Maritza Acosta [employer]. Circulating Nurse Alexa Schaeffer RN. Anesthesiologist Phoenix [...] Weight: 75.6kg BSA: 1.85 m2 Sex: MALE Account:[id number] CATH PROCEDURE: Procedure Description: Fluoro Time: 18.60 [...] technique under ultrasound guidance and a 7F Grenadian sheath was placed. Likewise the LFA was [...] sheath was then upsized to a 26 Grenadian DrySeal sheath. During placement of the DrySeal [...] wire and positioned across the valve. The Charlotte gold balloon was inflated to 12 atmospheres and the existing valve frame expanded. The Charlotte balloon was then removed and replaced with [...] arterial sheath was upsized to a 5 Grenadian prelude sheath and a Mynx vascular closure system was deployed in the arterial access site. A qipmto-ex-itgjb stitch was placed around the venous access site since 1 of the Perclose sutures had been inadvertently cut as mentioned previously. The remaining Perclose suture was tightened and as the sheath and wire removed the bbqhtu-mc-tprdw suture was also tightened. This achieved hemostasis. [...] patient underwent cardioversion with 75 joules with taoism of normal sinus rhythm 3. Low cardiac [...] 7. A single Perclose suture in a roxcle-nc-inoep were applied to the left femoral vein [...] Nadege valve. STAFF: Interventionalist Austin Phan MD. Home Energy Consultant Tech Maritzathomas [employer]. Circulating Nurse Alexa Schaeffer RN. Anesthesiologist Phoenix [...] data was last revised 2023. POC Performer [id number] [facility] POC Device Number [id number] [facility] Blood 08/29/2024 2:44 PM CDT 08/29/2024 2:44 PM CDT Austin Phan MD LAB POCT ORDERABLES - DEVICE Final Result Performing Organization Address [facility] [place] [address] * (ABNORMAL) POCT Activated clotting time, low range (08/29/2024 1:57 PM CDT) Pathologist [facility] ACT 237(H) 120 - 170 sec Comment: Interpetive Data Reference Ranges Not Established for a Pediatric Population. Current interpretive data was last revised 2023. POC Performer [id number] [facility] POC Device Number [id number] [facility] Blood 08/29/2024 1:57 PM CDT 08/29/2024 1:57 PM CDT Austin Phan MD LAB POCT ORDERABLES - DEVICE Final Result Performing Organization Address [facility] [place] [address] * (ABNORMAL) POCT Blood gas-hgb sat, cath (08/29/2024 1:47 PM CDT) [facility] O2 saturation chemical laboratory technician/or 48.4 % Carboxyhemoglob in, cath 1.3 0.0 - 2.9 % [facility] Hgb estimated 16.9 13.0 - 17.5 g/dL [facility] Methemoglobin, cath <1.0 <=1.9 % [facility] OxyHb 47.5(C) 90.0 - 95.0 % [facility] Specimen Source Italian Lecturer/OR LPA [facility] Blood 08/29/2024 1:47 PM CDT 08/29/2024 1:47 PM CDT Austin Phan MD LAB POCT ORDERABLES - DEVICE Final Result Performing Organization Address [facility] de Phone Number [facility] [place] [address] * (ABNORMAL) POCT Blood gas-hgb sat, cath (08/29/2024 1:45 PM CDT) O2 saturation chemical laboratory technician/or 46.1 % Carboxyhemoglob in, cath 1.3 0.0 - 2.9 % [facility] Hgb estimated 16.8 13.0 - 17.5 g/dL [facility] Methemoglobin, cath <1.0 <=1.9 % [facility] OxyHb 45.2(C) 90.0 - 95.0 % [facility] Specimen Source Italian Lecturer/OR MPA [facility] Blood 08/29/2024 1:45 PM CDT 08/29/2024 1:45 PM CDT Austin Phan MD LAB POCT ORDERABLES - DEVICE Final Result Performing Organization Address [facility] Co de Phone Number [facility] [place] [address] * (ABNORMAL) POCT Blood gas-hgb sat, cath (08/29/2024 1:41 PM CDT) O2 saturation chemical laboratory technician/or 53.7 % Carboxyhemoglob in, cath 1.3 0.0 - 2.9 % [facility] Hgb estimated 16.4 13.0 - 17.5 g/dL [facility] Methemoglobin, cath <1.0 <=1.9 % [facility] OxyHb 52.8(C) 90.0 - 95.0 % [facility] Specimen Source Italian Lecturer/OR S[facility] Blood 08/29/2024 1:41 PM CDT 08/29/2024 1:41 PM CDT Austin Phan MD LAB POCT ORDERABLES - DEVICE Final Result Performing Organization Address [facility] [facility] Co de Phone Number [facility] [place] [address] * (ABNORMAL) POCT Blood gas-hgb sat, cath (08/29/2024 1:40 PM CDT) pH Italian Lecturer/OR 7.30(L) 7.35 - 7.45 PCO2 Italian Lecturer/OR 38 35 - 45 mmHg [facility] PO2 Italian Lecturer/OR 59(L) 83 - 108 mmHg [facility] CO2, total 20 20 - 30 mmol/L [facility] BE, chemical laboratory technician/or -7.1 mmol/L [facility] O2 saturation chemical laboratory technician/or 88.2 % [facility] Carboxyhemoglob in, cath 1.5 0.0 - 2.9 % [facility] Hgb estimated 16.6 13.0 - 17.5 g/dL [facility] Methemoglobin, cath <1.0 <=1.9 % [facility] OxyHb 86.6(L) 90.0 - 95.0 % [facility] Specimen Source Italian Lecturer/OR JUAN MANUEL [facility] Hct, POC 51.0 % [facility] Blood 08/29/2024 1:40 PM CDT 08/29/2024 1:40 PM CDT Austin Phan MD LAB POCT ORDERABLES - DEVICE Final Result [facility] [place] [address] * PEDIATRIC LYUDMILA TRANSESOPHAGEAL ECHO (ZAK) W LTD DOPPLER/CF (08/29/2024 1:12 PM CDT) Anatomical Region Laterality Modality Ultrasound 08/29/2024 12:1 4 PM CDT Narrative 08/29/2024 4:[address] [facility] [address] [place] [address] Transesophageal Echo Report ----- Patient Name: CHANNING SLOAN Study Type: ZAK Patient : 1980 Exam Date: 08/29/2024 Age: 43Y Exam Time: 12:14:00 PM Referring MD: DRAKE LUND Height: 168cm Weight: 76kg BSA: 1.86 m2 Sex: MALE BP: 73/54 Manager Mail: Alex Montano Pat. Stat.: Inpatient Room: ENGINEERING LAB TECHNICIAN Account:[id number] Indications for Study:PULMONARY ATRESIA. 747.3 Procedures: CONGENITAL [...] Rashel Eddy MD - 08/29/2024 [facility] [address] [facility] [address] [place] [address] Transesophageal Echo Report ----- Patient Name: CHANNING SLAON Study Type: ZAK Patient : 1980 Exam Date: 08/29/2024 Age: 43Y Exam Time: 12:14:00 PM Referring MD: DRAKE LUND Height: 168cm Weight: 76kg BSA: 1.86 m2 Sex: MALE BP: 73/54 Manager Mail: Alex Montano Pat. Stat.: Inpatient Room: ENGINEERING LAB TECHNICIAN Account:[id number] Indications for Study:PULMONARY ATRESIA. 747.3 Procedures: CONGENITAL [...] PM Rashel Eddy MD us Silvia Tanner FRANCHISE SALES REPRESENTATIVE CV ECHO PROCEDURES Final Resu lt * [place] AN ELECTIVE ENDOTRACHEAL AIRWAY, [place] AN PROCEDURE PLACEHOLDER (08/29/2024 12:41 PM CDT) [...] ECG 12 lead (08/29/2024 10:36 AM CDT) [facility] Ventricular Rate EKG/Min 91 BPM [facility] Atrial Rate 250 BPM [facility] QRS-Interval (MSEC) 140 ms [facility] QT-Interval (MSEC) 478 ms [facility] QTc 587 ms [facility] R [place] 182 degrees [facility] T [place] -80 degrees [facility] Diagnosis Atrial flutter with variable A-V block Unable to accurately measure the QT interval Abnormal ECG When compared with ECG of 22-AUG-2024 10:11, No significant change was found Confirmed by fellow Shanel Hall do ([id number]) on 08/29/2024 10:45:57 AM I have personally reviewed the study and I agree with the above findings Confirmed by LEORA MOLINA M.D. ([id number]) on 08/29/2024 3:58:29 PM [facility] 08/29/2024 10:3 6 AM CDT 08/29/2024 3:58 PM CDT us Silvia Tanner FRANCHISE SALES REPRESENTATIVE ECG ORDERABLES Final Result Performing Organization Address City/[facility] Co de Phone Number [facility] * ABO / Rh Confirmation Testing (08/29/2024 9:59 AM CDT) ABO/Rh Confirmation A Positive [facility] Blood 08/29/2024 9:59 AM CDT 08/29/2024 10:26 AM CDT us Austin Phan MD LAB BLOOD ORDERABLES Final Re sult Performing Organization Address City/[facility] Co de Phone Number [facility] [place] [address] [facility] * (ABNORMAL) CBC without differential (08/29/2024 9:59 AM CDT) WBC 5.60 3.80 - 9.90 K/cumm Hgb 17.6(H) 13.0 - 17.5 g/dL [facility] Hct 52.0(H) 38.9 - 50.3 % [facility] Plt 206 150 - 400 K/cumm [facility] MPV 12.0 9.1 - 12.3 fL [facility] RBC 5.69 4.30 - 5.80 M/cumm [facility] MCV 91.4 81.3 - 96.4 fL [facility] MCH 30.9 27.1 - 33.3 pg [facility] MCHC 33.8 32.3 - 35.7 g/dL [facility] RDW CV 14.0 11.1 - 14.9 % [facility] RDW SD 46.5 35.7 - 48.1 fL [facility] NRBC abs 0.00 0.00 - 0.01 K/cumm [facility] Blood 08/29/2024 9:59 AM CDT 08/29/2024 10:20 AM CDT us Silvia Tanner NP LAB BLOOD ORDERABLES [place] [address] * Prepare RBC: 1 Units (08/29/2024 9:26 AM CDT) Units requested 1 Units requested Ready [facility] Unit Number [id number] Product code [id number] [facility] Blood Expiration Date [id number] [facility] Product Blood Type (for scanning) 5100 [facility] Product Blood Type OPOS [facility] Dispense Status DISPENSED [facility] Blood 08/29/2024 9:26 AM CDT 08/29/2024 9:25 AM CDT us Silvia Tanner NP BLOOD BANK PRODUCT ORDERABLES Final Result Performing Organization Address [facility] [place] [address] * eGFR (08/22/2024 11:55 AM CDT) eGFR [...] 08/22/2024 12:08 PM CDT us Silvia Tanner FRANCHISE SALES REPRESENTATIVE LAB BLOOD ORDERABLES Final Re sult Performing Organization Address City/[facility]/ZIP Co de Phone Number [facility] [place] [address] * ABO/Rh (08/22/2024 11:55 AM CDT) ABO/Rh A Positive Blood 08/22/2024 11:5 5 AM CDT 08/22/2024 12:33 PM CDT us Silvia Tanner NP LAB BLOOD BANK TEST ORDERABLE S Final Result Performing Organization Address [facility] [place] [address] * Crossmatch (08/22/2024 11:55 AM CDT) Crossmatch Compatible [facility] Unit number for crossmatch [id number] [facility] Blood 08/22/2024 11:5 5 AM CDT 08/22/2024 12:33 PM CDT Prince Blount MD LAB BLOOD BANK TEST ORDERABLES Final Result Performing Organization Address [facility] [place] [address] * Antibody screen (08/22/2024 11:55 AM CDT) Shaneka, indirect, Gel Interpretation Negative ABSC Blood 08/22/2024 11:5 5 AM CDT 08/22/2024 12:33 PM CDT Silvia Tanner FRANCHISE SALES REPRESENTATIVE LAB BLOOD BANK TEST ORDERABLE S Final Result Performing Organization Address [facility] [place] [address] * (ABNORMAL) TSH (08/22/2024 11:55 AM CDT) Pathologist [facility] Thyroid Stimulating Hormone 5.86(H) 0.30 - 4.20 mcIUnit/mL Blood 08/22/2024 11:5 5 AM CDT 08/22/2024 12:08 PM CDT Silvia Tanner FRANCHISE SALES REPRESENTATIVE LAB BLOOD ORDERABLES Final Re sult Performing Organization Address [facility] [place] [address] * T4, free (08/22/2024 11:55 AM CDT) Pathologist [facility] Free T4 1.51 0.90 - 1.70 ng/dL Blood 08/22/2024 11:5 5 AM CDT 08/22/2024 12:08 PM CDT Silvia Tanner FRANCHISE SALES REPRESENTATIVE LAB BLOOD ORDERABLES Final Re sult Performing Organization Address [facility] [place] [address] * Basic metabolic panel (08/22/2024 11:55 AM CDT) Sodium 136 135 - 145 mmol/L Potassium, pl 4.5 3.3 - 4.9 mmol/L [facility] Chloride 105 97 - 110 mmol/L [facility] CO2 23 22 - 32 mmol/L [facility] Anion gap 8 2 - 15 mmol/L [facility] BUN 18 6 - 25 mg/dL [facility] Creatinine 1.05 0.80 - 1.30 mg/dL [facility] Glucose 136 70 - 199 mg/dL [facility] Comment: Interpretive Data Fasting glucose >/= [...] 2022. Calcium 9.4 8.5 - 10.3 mg/dL [facility] Blood 08/22/2024 11:5 5 AM CDT 08/22/2024 12:08 PM CDT us Silvia Tanner NP LAB BLOOD ORDERABLES Final Re sult [facility] [place] [address] * XR Chest Pa Lateral 2 Views [...] by: More Medina M.D. us Silvia Tanner FRANCHISE SALES REPRESENTATIVE IMG XR PROCEDURES Final Resul t * Hepatitis C antibody Blood (06/01/2024 8:58 AM CDT) Hep C Ab NON-REACTI VE NON-REACT [facility] Comment: HCV antibody was non-reactive. There is no laboratory evidence of HCV infection. In most cases, no further action is required. However, if recent HCV exposure is suspected, a test for HCV RNA (test code 76336) is suggested. For additional information please refer to http://education.nap- Naturally Attached Parents.Todaytickets/faq/HCF68u4 (This link is being provided for informational/ educational purposes only.) Blood 06/01/2024 8:58 AM CDT 06/01/2024 8:58 AM CDT Narrative [facility] - 06/02/2024 6:58 AM CDT FASTING:YES FASTING: YES Carol Quiñones NP LAB MICROBIOLOGY - GENE RAL ORDERABLES Final Result [facility] [address] [place] [address] * (ABNORMAL) Albumin Creatinine Ratio, Urine (06/01/2024 [...] AM CDT FASTING:YES FASTING: YES Carol Quiñones FRANCHISE SALES REPRESENTATIVE LAB URINE ORDERABLES Fi nal Result [facility] [address] [place] [address] * (ABNORMAL) Lipid panel (06/01/2024 8:58 AM [...] LDL-C. Jovany EDGAR et al. LOVE. 2013;310(19): 1394-1771 (http://education.Roadmap.Todaytickets/faq/ASO122) Chol/HDL ratio 3.1 <5.0 (calc) [facility] [...] 6:58 AM CDT FASTING:YES FASTING: YES Carol uQiñones NP LAB BLOOD ORDERABLES Fi nal Result [facility] [address] [place] [address] * DIABETES EYE EXAM (03/26/2024) 03/26/2024 Historical Provider HEALTH MAINTENANCE Final Result from Last 3 Months or Most Recently Relevant to Health Maintenance Insurance [facility] AETNA SIGNATURE 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
--- OUTSIDE RECORDS SUMMARY | 2024-10-08 15:12 | XMS_ITS | Encounter Summary ---
Author Organization [facility] Healthcare Address [address] [place] [address] Care Team Providers Care Tractor Distributor Name Role Phone Roxanne Meza MD, Cam Ballard Unavailable More Mars MD Unavailable Phoenix Tejeda MD Primary Care Provider [phone] Encounter Details Date Type Department Care Team (Late st Contact Info) Description 09/27/2024 Results Follow-Up [facility] Diabetes Endocrine Care at [address] [place] [address] Tl Cruz, DO [address] [place] [address] [address] [place] [address] GELY-65 autoantibody, ZINC TRANSPORTER 8 [...] often do you attend chur ch or buddhist services? Never 09/28/2022 Do you belong to any clubs o r organizations such as religion groups, unions, fraternal or athletic groups, or [...] staff should administer the PHQ-9) 0 05/29/2024 [facility] [place] of Occupat ional Health - Occupational Stress [...] place to sleep or slept in a care home (including now)? No 09/28/2022 PHQ-9 Answer Date [...] on filedocumented in this encounter Care Teams Tractor Distributor Relationship Specialty Start Date End Date [place] [address] PCP - General Family Medicine 10/26/21 Cam Oliveira Jr., MD Consulting Physician Endocrinology Diabetes & Metabolism 08/06/21 More Mars MD Consulting Physician Pediatric Cardiology 08/06/21 documented as of this encounter
[2024-10-08 15:52] VITALS: BP 119/94; PULSE 75; RESP 23; O2SAT 96
[2024-10-08 16:53] VITALS: BP 146/87; PULSE 79; RESP 23; O2SAT 99
[2024-10-08] MEDS: ONDANSETRON INJ 4 MG/2 ML VIAL IV PUSH (17:17)
[2024-10-08] MEDS: HYDROmorphone HCL INJ (*CRX) 2 MG/ML VIAL 1 MG IV PUSH (17:20)
[2024-10-08 17:21] VITALS: BP 110/91; PULSE 78; RESP 22; O2SAT 97
[2024-10-08 17:49] VITALS: BP 101/81; PULSE 87; RESP 162; TEMP 36.9; O2SAT 95
== END 2024-10-08 17:51 | disposition home or self-care (01) ==
PROVIDERS: Registered Nurse; Emergency Provider Emergency Medicine; PCP Hospitalist
DX: R10.11 Right upper quadrant pain (principal); R10.31 Right lower quadrant pain
CPT/HCPCS: 36415; 74177; 76705; 80053; 81001; 82948; 83690; 85025; 96374; 96375; 99284; J1171; J2405; Q9967

== ENCOUNTER 2025-01-21 16:15 | Outpatient (RCR) | payer OTHER, SELFPAY | END 2025-01-21 23:59 | disposition home or self-care (01) | LOC: ANHCPREHAB 16:15 | PROVIDERS: PCP Hospitalist | DX: Z95.2 Presence of prosthetic heart valve (principal) | CPT/HCPCS: 93798 ==